=== PATIENT | female | born 1950 | race Caucasian/White ===

== ENCOUNTER → 2018-02-08 08:55 | Outpatient (CLI) | payer MEDICARE, OTHER, SELFPAY ==
--- NOTE | 2018-02-08 09:01 | BI_ITS ---
MAMMOGRAPHY - BILATERAL SCREENING REASON FOR EXAM: Female, 67 years old. Routine annual screening examination. PERTINENT HISTORY: Personal history of breast cancer. Prior right lumpectomy and radiation treatment. Mother with breast cancer. TECHNIQUE: Digital bilateral breast zayra (3D mammographic acquisition) in the CC and MLO projections. 2-D mediolateral oblique (MLO) and craniocaudad (CC) views of both breasts were obtained. CAD: Full Field Digital Mammography with Computer Added Detection was performed. COMPARISON: Comparison is made with prior study dated February 02, 2017 and January 14, 2016. FINDINGS: Breast Composition: The breasts are heterogeneously dense, which may obscure small masses. There are no dominant masses or suspicious calcifications. The patient is status post right lumpectomy with resultant architectural distortion and decreased size of the right breast as compared to the left side. This is unchanged. Tiny calcifications are seen at the operative site most likely postoperative in nature. No new mass lesion or clustered microcalcifications present. No other significant abnormalities are identified. There has been no significant change since the prior study. BI/SCREENING MAMM (CAD), BILAT IMPRESSION: Stable bilateral screening mammogram. Yearly follow-up mammogram recommended. (A) ASSESSMENT CATEGORY: BIRADS Category 2: Benign. A letter regarding these results will be sent to the patient by the facility within 30 days. Approximately 10% of breast cancers are not detected by mammography. A normal mammogram should not delay biopsy of a clinically suspicious abnormality. [id number] Electronically Signed: Karson Fernández MD at 10:32 EDT Tel [phone], Service support ,
[2018-02-08 10:08] LABS: Absolute Lymphocyte Count 1.67 X10^3/ul (0.83-4.51); Absolute Neutrophil Count 3.4 X10^3/uL (2.0-7.7); Basophil# 0.05 X10^3/uL; Basophil% 0.9 % (0-1); Eosinophil# 0.05 X10^3/uL; Eosinophils% 0.9 % (0-5); Hemoglobin 13.7 g/dl (12.0-15.0); Lymphocyte # 1.67 X10^3/ul (4.0); Lymphocyte % 29.7 % (19-41); Mean Corp Hgb Conc 31.9 g/gl (32-36); Mean Corpuscular Hgb 29.8 pg (27.0-32.0); Mean Corpuscular Volume 93.5 fL (81-99); Mean Platelet Vol. 10.2 fl (6.2-12.0); Monocyte# 0.43 X10^3/uL; Monocyte% 7.6 % (0-10); Neutrophil # 3.43 X10^3/uL (2.7-7.7); Neutrophil % 60.9 % (47-70); Platelet Count 265 K/mm3 (150-450); RBC Distribution Width SD 44.5 fl (35.1-43.9); White Blood Count 5.6 K/mm3 (4.4-11.0)
[2018-02-08 10:09] LABS: POSITIVE COUNT NO; POSITIVE DIFFERENTIAL NO; POSITIVE MORPHOLOGY NO
[2018-02-08 10:53] LABS: ALB/GLOB Ratio 0.9 RATIO (0.9-2.4); AST(SGOT) 21 U/L (15-37); Alanine Aminotransfer ALT/SGPT 28 U/L (13-56); Albumin, Serum 3.5 g/dL (3.2-5.0); Alkaline Phosphatase 98 U/L (45-117); Anion Gap 7 (5-15); BUN 8 mg/dL (7-18); BUN/Creat Ratio 11.3 RATIO (10-20); Calcium,Total 8.7 mg/dL (8.5-10.1); Chloride 109 mmol/L (98-107); Creatinine, Serum 0.71 mg/dL (0.55-1.02); EST Glomerular Filtration Rate 87 mL/min (>60); Est Glom Filt Rate - Afr Amer 105 mL/min (>60); Globulin 3.9 g/dL (2.2-4.2); Glucose 82 mg/dL (74-106); Potassium 3.8 mmol/L (3.5-5.1); Protein, Total 7.4 g/dL (6.4-8.2); Sodium Level 144 mmol/L (136-145)
== END ==
PROVIDERS: Family Provider Family Medicine; PCP Family Medicine; Visit Provider Nurse Practitioner Family
DX: Z12.31 Encounter for screening mammogram for malignant neoplasm of breast (principal); Z85.3 Personal history of malignant neoplasm of breast
CPT/HCPCS: 36415; 77063; 77067; 80053; 85025

== ENCOUNTER → 2018-03-29 08:44 | Outpatient (CLI) | payer MEDICARE, OTHER, SELFPAY ==
[2018-03-29 11:00] LABS: Cholesterol 151 mg/dL (200); High Density Lipoprotein 63 mg/dL; Triglycerides 90 mg/dL; Very Low Density Lipoprotein 18 mg/dL (5-40)
== END ==
PROVIDERS: Visit Provider Family Medicine
DX: E78.5 Hyperlipidemia, unspecified (principal)
CPT/HCPCS: 36415; 80061

== ENCOUNTER → 2018-09-15 08:10 | Outpatient (CLI) | payer MEDICARE, OTHER, SELFPAY ==
[2018-09-15 10:28] LABS: Anion Gap 8 (5-15); BUN 11 mg/dL (7-18); BUN/Creat Ratio 15.2 RATIO (10-20); Calcium,Total 8.7 mg/dL (8.5-10.1); Chloride 105 mmol/L (98-107); Creatinine, Serum 0.72 mg/dL (0.55-1.02); EST Glomerular Filtration Rate 85 mL/min (>60); Est Glom Filt Rate - Afr Amer 103 mL/min (>60); Glucose 86 mg/dL (74-106); Potassium 4.1 mmol/L (3.5-5.1); Sodium Level 144 mmol/L (136-145)
--- OUTSIDE RECORDS SUMMARY | 2018-12-17 08:37 | XMS RPT_ITS ---
:1950 Author Organization OHIP Support Name Relationship Address Phone [facility] Unavailable [address] + [place] [address] MAYELA OHARA Unavailable [address] + [place] [address] SERGE OHARA Unavailable [address] + [place] [address] [facility] Unavailable [address] + [place] [address] MAYELA OHARA Unavailable [address] + [place] [address] SERGE OHARA Unavailable [address] + [place] [address] [facility] Unavailable [address] + [place] [address] MAYELA OHARA Unavailable [address] [phone] [place] [address] SERGE OHARA Unavailable [address] [phone] [place] [address] [facility] Unavailable [address] + [place] [address] MAYELA OHARA Unavailable [address] [phone] [place] [address] SERGE OHARA Unavailable [address] [phone] [place] [address] [facility] Unavailable [address] + [place] [address] MAYELA OHARA Unavailable [address] [phone] [place] [address] SERGE OHARA Unavailable [address] [facility] [phone] [place] [address] Care Team Providers Name Role Phone Abiel Jadiel Attending Unavailable Beebe, Jadiel Primary Care Unavailable Mohamud, Anita Attending Unavailable Abiel, Jadiel Primary Care Unavailable Beebe, Jadiel Referring Unavailable Mohamud, Anita Attending Unavailable Mohamud, Anita Referring Unavailable Beebe, Jadiel Primary Care Unavailable Mohamud, Anita Attending Unavailable Beebe, Jadiel Referring Unavailable Beebe, Jadiel Primary Care Unavailable Mohamud, Anita Consulting Unavailable Abiel, Jadiel Attending Unavailable PROBLEMS PROBLEMS DATE TYPE CONDITION / CODE ATTENDING STATUS SOURCE 09/15/2018 Unknown I10 - Essential Jadiel Beebe Active [facility] (primary) [facility] hypertension / Hospital I10(ICD-10) Repository 02/15/2018 Unknown Z79.899 - Other Mohamud, Anita Active [place] [facility]current[facility] drug Hospital therapy / Repository Z79.899(ICD-10) 02/15/2018 Unknown Z12.31 - Encounter Mohamud, Anita Active [facility] for screening [facility] mammogram for Hospital malignant neoplasm Repository of breast / Z12.31(ICD-10) 02/15/2018 Unknown Z85.3 - Personal Mohamud, Anita Active [facility] history of Community malignant neoplasm Hospital of breast / Repository Z85.3(ICD-10) PROCEDURES PROCEDURES No Procedure Records FoundRESULTS RESULTS BASIC METABOLIC Collected: 09/15/2018 Status: F Source: [place] PROFILE (BMP) 8:15 AM [facility] HOSPITAL REPOSITORY TYPE CODE TESTS RESULT OUT OF RANGE REFERENCE UNITS LAB L501.0100 74-106 mg/dL Normal GLU 86 Result Comment: Please note revised GLUCOSE reference range effective 2017. LAB L501.1000 7-18 mg/dL Normal BUN 11 LAB L501.1100 0.55-1.02 mg/dL Normal CREAT,SERUM 0.72 Result Comment: The validity of the calculated GFR AND GFRAA in patients over 70 years has not been determined. Clinical correlation is essential. LAB L501.1110 >60 mL/min Normal EST GFR 85 Result Comment: Non- GFR Calc LAB L501.1115 >60 mL/min Normal EST GFR - AA 103 Result Comment: GFR Calc LAB L501.1300 10-20 RATIO Normal BUN/CRE 15.2 LAB L501.2200 8.5-10.1 mg/dL CA Normal 8.7 LAB L501.5300 136-145 mmol/L NA Normal 144 LAB L501.5600 3.5-5.1 mmol/L K Normal 4.1 LAB L501.5900 98-107 mmol/L CL Normal 105 LAB L501.6100 21.0-32.0 mmol/L Normal CO2 31.0 LAB L501.6200 5-15 Normal GAP 8 Performed By: #### L500.2500 #### [facility] [address] [place], [address] LIPID PROFILE Collected: 03/29/2018 Status: F Source: [place] 8:46 AM [facility] REPOSITORY TYPE CODE TESTS RESULT OUT OF RANGE REFERENCE UNITS LAB L501.4900 200 mg/dL Normal CHOL 151 Result Comment: <200 mg/dL Desirable 200-240 mg/dL Borderline >240 mg/dL High Risk LAB L501.5000 mg/dL Normal TRIG 90 Result Comment: The drugs N-Acetylcysteine and Metamizole may falsely depress this assay. Serum Triglycerides Reference Interval Normal <150 mg/dL Borderline high 150 - 199 mg/dL High 200 - 499 mg/dL Very High > or = 500 mg/dL LAB L501.6400 mg/dL Normal HDL 63 Result Comment: The drugs N-Acetylcysteine and Metamizole may falsely depress this assay. Reference Range HDL <40 mg/dL Low HDL Cholesterol HDL >or= 60 mg/dL High HDL Cholesterol LAB L501.6500 0-130 mg/dL Normal LDL 70 LAB L501.6600 5-40 mg/dL Normal VLDL 18 Performed By: #### L500.4100 #### [facility] [address] [place], [address] ONCOLOGY VISIT REPORT Observed: 02/15/2018 Status: F Source: [place] 12:46 PM [facility] REPOSITORY [facility] [address] [place] [address] OFFICE VISIT Date of Service: 02/15/18 1116 MR#: [id number] Acct: [id number] Name: BRENDA QUINTERO Rep #: [id number] : 1950 From: Anita RODRIGUEZ Age/Sex: 67/F Location: OMD Status: Signed Subjective - Date of Service Date of Service:: 02/15/18 - Chief Complaint Follow up- breast cancer - History of Present Illness Ms. 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 She is s/p lumpectomy and sentinel node biopsies. Completed course of adjuvant radiation therapy under the care of Dr. Florence. Oncotype DX score was 18. On Arimidex 11/01/2007 - 12/15/2012. - Interval History The patient is presenting to clinic for 1 year follow up. She is tearful today explaining since her last visit, her passed from cholangiocarcinoma. Reports she is in grieve counseling program provided by hospice. Otherwise, she denies any overt complaints r/t today's visit. States she performs monthly BSE and denies any palpable masses, skin abnormalities. Underwent screening mammogram last week and states was told it was good. - Past Medical/Social History Past Medical History Past Medical History: Heart disease,Hyperlipidemia,Hypertension, Osteoarthritis,Osteopenia Other Past Medical History: RADICULOPATHY R LEG Cancer: Breast cancer Past Surgical History Surgical: Breast,Carpal tunnel,Knee replacement Other Surgical History: D AND C, BL knee's Family History Paternal Past Medical History: Heart disease Maternal Past Medical History: Diabetes mellitus,Heart disease Maternal History of Cancer: Breast cancer Social History Smoking Status Former smoker Review of Systems Constitutional:: Denies: Fever, Sweats, Weight loss, Appetite change, Chills Cardiovascular:: Denies: Chest pain, Palpitations, Dyspnea on exertion, Orthopnea, PND, Shortness of breath Respiratory: Denies: Cough, Hemoptysis, Shortness of Breath, Wheezing Gastrointestinal:: Denies: Abdominal pain, Nausea, Vomiting, Diarrhea, Constipation, Hematochezia Genitourinary: Denies: Dysuria, Hematuria, 15, Flank pain Musculoskeletal:: Denies: Back pain, Myalgia, Arthralgia Skin: Denies: Rash, Skin Changes, Wounds Neurological:: Denies: Headache, Dizziness, Visual changes, Tinnitus, Hearing loss Psychiatric: Denies: Anxiety, Depression, Homicidal Ideations, Suicidal Ideations Vital Signs Height 5 ft 3 in Weight: 180 lb Weight in Pounds 180.0 lbs Pulse Ox 97 - Physical Exam General: Alert, Oriented x3, No apparent distress HEENT: Atraumatic, Normocephalic Oropharynx:: Negative for: Dry mucosa, Ulcerated lesions Neck:: Supple, Trachea midline. Negative for: JVD, bilateral Cardiac:: Regular rate, Regular rhythm, Normal S1, Normal S2. Negative for: Murmur Lungs: Clear to auscultation, Excusion symmetrical. Negative for: Rhonchi, Wheezes Abdomen:: Bowel sounds x 4, Soft, Non-tender, Non-distended. Negative for: Hepatosplenomegaly Extremities:: Negative for: Cyanosis, Edema Neurological: Neuro grossly intact Skin:: Negative for: Lesions, Rash, Petechiae, Ecchymosis Psychiatric:: Appropriate affect, Euthymic Lymphatics:: Negative for: Cervical lymphadenopathy, Supraclavicular lymphadenopathy, Axillary lymphadenopathy Breast:: - - Left breast without palpable masses, skin abnormalities such as dimpling, nipple retraction or discharge. Right breast shows well-healed lumpectomy scar, no palpable masses, dimpling, rashes. Skin thickened at the inferior portion of scar Diagnostic Data: Bilateral screening mammogram 02/08/18 - Stable . Yearly follow- up mammogram recommended. BI RADS Category 2: Assessment and Plan Ms. Brenda Quintero is a very pleasant 67-year-old woman with a past medical history for early stage moderately differentiated invasive ductal carcinoma of the right breast. She is status post lumpectomy and radiation therapy. She completed 5 years of AI therapy in 2012. 1. Stage I breast cancer- Mammogram from 02/02/17 reviewed, BIRADS category 2. Breast exam today is benign. She is not exhibiting any s/sx concerning for recurrence. CBC and CMP reviewed and WNL. Recommend that she continue calcium/vitamin D supplementation and monthly BSE, promptly reporting any changes. Otherwise, she can be followed back in clinic in 1 yr, with labs and screening mammogram 1 wk prior. Patient was in agreement with the aforementioned plan. Anita Mallory, MSN, [employer] E[employer]ECTS LINE UP PERSON-C, AOCNP Primary Care Provider: Jadiel Beebe Referring Provider: Jadiel Beebe - Problem List (1) History of breast cancer Status: Acute 02/15/18 1246 <Electronically signed by Anita RODRIGUEZ> Date Anita RODRIGUEZ Cosigner Signature: Date (if applicable) CC: SCREENING MAMM (CAD), Observed: 02/08/2018 Status: F Source: [place] BIL 9:01 AM [facility] REPOSITORY [facility] Imaging Services [address] [place] [address] SCREENING MAMM (CAD), BILAT MR#: [id number] Acct: [id number] Name: BRENDA QUINTERO Rep #: [id number] : 1950 F 67 From: Karson Fernández MD PCP: Jadiel Beebe MD Status: REG CLI Study: SCREENING MAMM (CAD), BILAT Date of Exam: 02/08/18 Exam# [id number] Ordering Dr: Anita Mallory MAMMOGRAPHY - BILATERAL SCREENING REASON FOR EXAM: Female, 67 years old. Routine annual screening examination. PERTINENT HISTORY: Personal history of breast cancer. Prior right lumpectomy and radiation treatment. Mother with breast cancer. TECHNIQUE: Digital bilateral breast zayra (3D mammographic acquisition) in the CC and MLO projections. 2-D mediolateral oblique (MLO) and craniocaudad (CC) views of both breasts were obtained. CAD: Full Field Digital Mammography with Computer Added Detection was performed. COMPARISON: Comparison is made with prior study dated February 02, 2017 and January 14, 2016. FINDINGS: Breast Composition: The breasts are heterogeneously dense, which may obscure small masses. There are no dominant masses or suspicious calcifications. The patient is status post right lumpectomy with resultant architectural distortion and decreased size of the right breast as compared to the left side. This is unchanged. Tiny calcifications are seen at the operative site most likely postoperative in nature. No new mass lesion or clustered microcalcifications present. No other significant abnormalities are identified. There has been no significant change since the prior study. BI/SCREENING MAMM (CAD), BILAT IMPRESSION: Stable bilateral screening mammogram. Yearly follow-up mammogram recommended. (A) ASSESSMENT CATEGORY: BIRADS Category 2: Benign. A letter regarding these results will be sent to the patient by the facility within 30 days. Approximately 10% of breast cancers are not detected by mammography. A normal mammogram should not delay biopsy of a clinically suspicious abnormality. [id number] Electronically Signed: Karson Fernández MD at 10:32 EDT Tel [phone], Service support , CC: Jadiel Beebe MD; Anita Mallory NP Rn Labor And Delivery: Signed CBC W/DIFF, AUTOMATED Collected: 02/08/2018 Status: F Source: [place] 8:51 AM [facility] REPOSITORY Order Comment: Reason for Laboratory Test OV TYPE CODE TESTS RESULT OUT OF RANGE REFERENCE UNITS LAB L100.1000 4.4-11.0 K/mm3 Normal WBC 5.6 LAB L100.1200 4.2-5.4 M/mm3 Normal RBC 4.60 LAB L100.1300 12.0-15.0 g/dl Normal HGB 13.7 LAB L100.1400 37-47 % Normal HCT 43.0 LAB L100.1500 81-99 fL Normal MCV 93.5 LAB L100.1600 27.0-32.0 pg Normal MCH 29.8 LAB L100.1700 32-36 g/gl Low MCHC 31.9 LAB L100.1810 11.6-14.6 % Normal RDW CV 13.0 LAB L100.1820 35.1-43.9 fl High RDW SD 44.5 LAB L100.1900 150-450 K/mm3 Normal PLT 265 LAB L100.2000 6.2-12.0 fl Normal MPV 10.2 LAB L100.2100 47-70 % Normal NEUT% 60.9 LAB L100.2200 19-41 % Normal LY% 29.7 LAB L100.2300 0-10 % Normal MONO% 7.6 LAB L100.2400 0-5 % Normal EO% 0.9 LAB L100.2500 0-1 % Normal BASO% 0.9 LAB L100.2550 0.0-0.9 % Normal IM GRAN % 0.000 Result Comment: IG% - Immature Granulocytes (promyelocytes, myelocytes and metamyelocytes) > 1% indicates that a LEFT SHIFT is Present. LAB L100.2620 2.0-7.7 X10 3/uL Normal Absolute Neut 3.4 LAB L100.2720 0.83-4.51 X10 3/ul Normal Absolute Lymph 1.67 Performed By: #### L100.0100 #### [facility] [address] [place], [address] COMPREHENSIVE METABOLIC Collected: 02/08/2018 Status: F Source: [facility] 8:51 AM [facility] REPOSITORY Order Comment: Reason for Laboratory Test OV TYPE CODE TESTS RESULT OUT OF RANGE REFERENCE UNITS LAB L501.0100 74-106 mg/dL Normal GLU 82 Result Comment: Please note revised GLUCOSE reference range effective 2017. LAB L501.1000 7-18 mg/dL Normal BUN 8 LAB L501.1100 0.55-1.02 mg/dL Normal CREAT,SERUM 0.71 Result Comment: The validity of the calculated GFR AND GFRAA in patients over 70 years has not been determined. Clinical correlation is essential. LAB L501.1110 >60 mL/min Normal EST GFR 87 Result Comment: Non- GFR Calc LAB L501.1115 >60 mL/min Normal EST GFR - AA 105 Result Comment: GFR Calc LAB L501.1300 10-20 RATIO Normal BUN/CRE 11.3 LAB L501.1500 6.4-8.2 g/dL T Normal PROT 7.4 LAB L501.1800 3.2-5.0 g/dL Normal ALB 3.5 LAB L501.1950 2.2-4.2 g/dL Normal GLOB 3.9 LAB L501.2000 0.9-2.4 RATIO Normal A/G 0.9 LAB L501.2200 8.5-10.1 mg/dL CA Normal 8.7 LAB L501.4100 15-37 U/L Normal AST 21 LAB L501.4305 45-117 U/L Normal ALK P 98 LAB L501.4405 13-56 U/L Normal ALT 28 LAB L501.4600 0.20-1.00 mg/dL T Normal BILI 0.90 LAB L501.5300 136-145 mmol/L NA Normal 144 LAB L501.5600 3.5-5.1 mmol/L K Normal 3.8 LAB L501.5900 98-107 mmol/L High CL 109 LAB L501.6100 21.0-32.0 mmol/L Normal CO2 28.0 LAB L501.6200 5-15 Normal GAP 7 Performed By: #### L500.4050 #### [facility] [address] [place], [address] ALLERGIES ALLERGIES DATE TYPE / NAME / CODE REACTION SEVERITY SOURCE CODE 02/09/2017 Drug oxycodone Nausea Unknown [place] Allergy/41 HCl/[id number](RXNORM [facility] 2560236[facility]) Repository 02/09/2017 Drug pseudoephedrine Nausea/Vom/Tram Unknown [place] Allergy/41 HCl/[id number](RXNORM [facility] 0657611[facility]) Repository 02/09/2017 Drug nitrofurantoin Rash Unknown [place] Allergy/41 macrocrystalline/F000 [facility] [id number]( 472803[facility] 02/09/2017 Drug fexofenadine Nausea/Vom/Tram Unknown [place] Allergy/41 HCl/[id number](RXNORM [facility] 1044874[facility]) Repository 02/09/2017 Drug Tetracyclines/[id number] Unknown Unknown [facility] Allergy/41 478(RXNORM) [facility] [id number]([facility]) Repository 02/09/2017 Drug nitrofurantoin/S77503 Rash Unknown [facility] Allergy/41 2852(RXNORM) [facility] 3604024([facility]) Repository ENCOUNTERS ENCOUNTERS ADMIT/DISCHARGE ACCOUNT ADMITTING ENCOUNTER LOCATION SOURCE NUMBER CLASS 09/15/2018 [id number] Ambulatory [place] 1 [facility] ing:MFPLAB Repository 03/29/2018 [id number] Ambulatory [place] 3 [facility] ing:MFPLAB Repository 02/15/2018 [id number] Ambulatory [place] 7 [facility] ing:OMD Repository 02/15/2018 [id number] Ambulatory BMSBuilding:B [place] 6 [facility] Repository 02/08/2018 [id number] Ambulatory [place] 8 [facility] ing:OPBI Repository PAYERS PAYERS ENCOUNTER GUARANTOR PAYER SUBSCRIBER SOURCE 09/15/2018 BRENDA RIZO6 Primary BRENDA GALLEGOS Insurance:MEDICARE LEAMANDOB: [place] PART A [facility] [id number] Hospital [address]Hjv: (330) Number: Repository [phone] () [id number] Date:2018-09-15 09/15/2018 Secondary Ivnh S [place] Insurance:AULTCAREPol [facility] Number: [id number] Hospital [id number] Repository Date:[id number] [address]NI: 09/15/2018 Tertiary NOT GIVENUNK [place] Insurance:SELF PAY [facility] Number: Effective Repository Date:2018-09-15 03/29/2018 BRENDA RIZO6 Primary BRENDA GALLEGOS Insurance:[facility]ARE [facility] C[facility]OB: [place] PART A [facility] [id number] Hospital [address]Eec: (330) Number: Repository [phone] () [id number] Date:2018-03-29 03/29/2018 Secondary Vinh S [place] Insurance:AULTCAREPol [facility] Hospital[facility]: [facility] icy Number: [id number] Hospital [id number] Repository Date:4697-77-73[address], [place] [address]XT: 03/29/2018 Tertiary NOT GIVENUNK [place] Insurance:SELF PAY [facility] Number: Effective Repository Date:2018-03-29 02/15/2018 Vinh S Primary BRENDA Garrido [id number] Insurance:MEDICARE LEAMANDOB: [place] PART A [facility] [id number] Number: Repository [address]Auq: [id number] [phone] Date:2014-08-28 2 () 02/15/2018 Secondary Vinh S [place] Insurance:AULTCAREPol LeamanDOB: [facility] icy Number: [id number] Hospital [id number] Repository Date:8107-51-88Cq [address], [place] [address]XN: 02/15/2018 Tertiary NOT GIVENUNK [place] Insurance:SELF PAY [facility] Number: Effective Repository Date:2016-12-16 02/15/2018 Vinh S Primary BRENDA Garrido [id number] Insurance:MEDICARE LEAMANDOB: [place] PART A [facility] [id number] Number: Repository [address]Fug: [id number] [phone] Date:2014-08-28 2 () 02/15/2018 Secondary Vinh Peters [place] Insurance:AULTCAREPol LeamanDOB: Community icy Number: [id number] Hospital [id number] Repository Date:1994-87-46Wi [address] [place] [address]LK: 02/15/2018 Tertiary NOT GIVENUNK [place] Insurance:SELF PAY [facility] Number: Effective Repository Date:2018-02-15 02/08/2018 FABI [id number] Primary BRENDA BRIGGSWOOD Insurance:MEDICARE LEAMANDOB: [place] PART A [facility] [id number] Hospital [address]Slk: 330) Number: Repository [phone] ( [id number] Date:2017-12-22 02/08/2018 Secondary BRENDA Garrido Insurance:AULTCAREPol [facility]: [facility] Number: [id number] Hospital [id number] Repository Date:4527-24-26[address] [address]XQ: 02/08/2018 Tertiary NOT RONI Garrido Insurance:SELF PAY [facility] Number: Effective Repository Date:2017-12-22
== END ==
PROVIDERS: Family Provider Family Medicine; PCP Family Medicine; Visit Provider Family Medicine
DX: I10 Essential (primary) hypertension (principal)
CPT/HCPCS: 36415; 80048

== ENCOUNTER 2018-12-31 17:38 | Inpatient (IN) | payer MEDICARE, OTHER, SELFPAY ==
[2018-12-31 17:39] VITALS: BP 176/73; PULSE 74; RESP 16; TEMP 36.8; O2SAT 98; BMI 35.6
--- NOTE | 2018-12-31 17:41 | CT_ITS ---
STUDY: CT ABDOMEN AND PELVIS WITH CONTRAST REASON FOR EXAM: Female, 68 years old. Left lower quadrant pain. History of breast cancer. RADIATION DOSAGE (If Supplied By Facility): CTDIvol = ( 17.29 ) mGy, DLP = ( 1137.10 ) mGycm TECHNIQUE: Transaxial images were obtained from the dome of the diaphragm to the symphysis pubis without oral contrast. 100ML IV Isovue 300 was administered. Sagittal and coronal images were reconstructed. Individualized dose optimization techniques were used for this CT. COMPARISON: CT abdomen pelvis with IV contrast January 01, 2015; MRI abdomen January 12, 2015 FINDINGS: There is stable soft tissue density surrounding a cluster of small surgical clips in the deep soft tissues of the right breast. Stable mild to moderate elevation of the right diaphragm. The visualized lung bases are clear. The visualized portions of the heart are within normal limits. The multiple rounded hypodense cysts in the liver are again noted. What had been one of the largest cysts, measuring 5.75 cm diameter in the left lobe, today is only 2.9 cm and shows slight overall increased density. Most of the remaining cysts are mostly unchanged. The patent portal vein diameter is 13 mm. Normal gallbladder and extrahepatic biliary system. The common bile duct diameter is 3.5 mm. Normal spleen. Normal size and contour of the pancreas. The central most pancreatic duct diameter is 4 mm Normal bilateral adrenal glands. There is stable bilateral pelvocaliectasis and/or clusters of bilateral parapelvic cysts. The right and left kidneys are normal in size. No ureteral dilatation to indicate distal urinary tract obstruction. There is a stable small hiatal hernia. Normal small intestine. Normal colon. The appendix is visualized and appears normal. There is stable moderate atherosclerotic calcification of the abdominal aorta and proximal iliac arteries, without a demonstrated aneurysm. Normal inferior vena cava. Normal retroperitoneum. The urinary bladder is distended to approximately 825 mL. There is atrophy of the uterus. Normal abdominal wall. There are diffuse degenerative changes of the visualized spine with progression of degenerative disc height narrowing and associated anterior vertebral endplate sclerosis and osteophyte formation at L3-4. CT/Abdomen/Pelvis W IV Cont ONLY IMPRESSION: 1. Urinary bladder is distended to approximately 825 mL at the time of scanning. No ureteral dilatation to indicate urinary tract obstruction. 2. There is stable bilateral pelvocaliectasis and/or clusters of bilateral parapelvic cysts. 3. Multiple hepatic cysts again noted. One of the largest, in the left lobe, is decreased in size today, while the others are grossly unchanged. 4. Stable vvdc-[id number]-nidloqea elevation of the right diaphragm, etiology uncertain. 5. Stable postsurgical changes in the deep soft tissues of the right breast. 6. Stable moderate aortoiliac atherosclerotic calcific plaquing. No demonstrated aneurysm. 7. Stable small hiatal hernia. The bowel is otherwise unremarkable without signs of obstruction. The appendix is normal. 8. Degenerative changes again seen in the spine, with progression since 2014 noted particularly at L3-4 Electronically Signed: Derik Mcguire MD at 19:31 EDT , Service support ,
[2018-12-31 17:42] VITALS: BP 176/73; PULSE 80; RESP 16; O2SAT 99
--- NOTE | 2018-12-31 17:58 | ED.DCSUM_ITS ---
- ER Visit Summary Date of Service: 12/31/18 Chief Complaint: Nausea, abdominal pain History of Present Illness: The patient is a 68 F presents to the emergency department with abdominal pain. The patient states that over the past 3 days, she had some cramping pain in her left lower quadrant. She is also had some loose watery diarrhea. She states that the symptoms acutely worsened today. She describes a sharp stabbing pain. She think she is had chills but is unsure if she had fever. She is been nauseated without vomiting. The patient has had history of prior laparoscopic surgery for endometriosis. She is otherwise been in her normal state of health. She denies any bloody diarrhea. She denies any recent antibiotics. Physical Examination: Vital signs reviewed General: Well-nourished, well-developed Head: Normocephalic, atraumatic Eyes: Pupils equal and reactive, extraocular muscles intact Neck, supple, no lymphadenopathy Heart: Regular rate and rhythm Respiratory: No distress, clear bilaterally Abdomen: Soft, mildly tender in the left lower quadrant without rebound or guarding, nondistended, no peritoneal signs Back: Nontender Extremities: Nontender, no edema, no cords Skin: Normal color no rash Neuro: Alert and oriented, no focal or lateralizing deficits Test Results: [] Emergency Department Course and Treatment: The patient symptoms do seem consistent with diverticulitis. She had increasing pain in her left lower quadrant with loose diarrhea. She is also had chills. IV was established. Patient was given fluids, antiemetics, and analgesics. Her pain is improved but it was still persistent. Screening labs are unremarkable. CT does not show any definitive evidence of diverticulitis, however on my review there does appear to be thickened wall of the colon, but no evidence of perforation or free air. Patient continues to have pain. At this time, I do feel that I will treat her clinically for diverticulitis with IV antibiotics. Given her persistent pain, I do feel that she would benefit from observation. The patient was discussed with the hospitalist. Treatment Plan: [] Disposition: Admission Impression: 1. Left lower quadrant abdominal pain This note was generated with [employer] dictation software. It may contain incorrect words, spelling, and punctuation that were not noted in review of the chart prior to signing ED Disposition - Plan for ED Patient: Referrals: Jadiel Beebe MD [Primary Care Provider] -
[2018-12-31 18:06] LABS: Absolute Lymphocyte Count 2.45 X10^3/ul (0.83-4.51); Absolute Neutrophil Count 4.3 X10^3/uL (2.0-7.7); Basophil# 0.05 X10^3/uL; Basophil% 0.7 % (0-1); Eosinophil# 0.04 X10^3/uL; Eosinophils% 0.5 % (0-5); Hematocrit 42.6 % (37-47); Hemoglobin 14.3 g/dl (12.0-15.0); Lymphocyte # 2.45 X10^3/ul (4.0); Lymphocyte % 32.6 % (19-41); Mean Corp Hgb Conc 33.6 g/gl (32-36); Mean Corpuscular Hgb 30.8 pg (27.0-32.0); Mean Corpuscular Volume 91.8 fL (81-99); Monocyte% 9.3 % (0-10); Neutrophil # 4.27 X10^3/uL (2.7-7.7); Neutrophil % 56.9 % (47-70); Platelet Count 255 K/mm3 (150-450); RBC Distribution Width CV 13.2 % (11.6-14.6); RBC Distribution Width SD 44.1 fl (35.1-43.9); Red Blood Count 4.64 M/mm3 (4.2-5.4); White Blood Count 7.5 K/mm3 (4.4-11.0)
[2018-12-31] MEDS: Morphine 4 MG/ML Syringe IV (18:06)
[2018-12-31] MEDS: Ondansetron 4 MG/2 ML Vial IV (18:06)
[2018-12-31] MEDS: 0.9% Normal Saline 1,000 ML 1000 ML IV (18:06)
[2018-12-31 18:20] LABS: AST(SGOT) 29 U/L (15-37); Alanine Aminotransfer ALT/SGPT 40 U/L (13-56); Albumin, Serum 3.9 g/dL (3.2-5.0); Alkaline Phosphatase 104 U/L (45-117); Anion Gap 7 (5-15); BUN 9 mg/dL (7-18); BUN/Creat Ratio 13.3 RATIO (10-20); Calcium,Total 8.7 mg/dL (8.5-10.1); Chloride 106 mmol/L (98-107); Creatinine, Serum 0.68 mg/dL (0.55-1.02); EST Glomerular Filtration Rate 92 mL/min (>60); Est Glom Filt Rate - Afr Amer 111 mL/min (>60); Estimated Creatinine Clearance 43.92 ml/min; Globulin 3.8 g/dL (2.2-4.2); Glucose 96 mg/dL (74-106); Potassium 3.6 mmol/L (3.5-5.1); Protein, Total 7.7 g/dL (6.4-8.2); Sodium Level 140 mmol/L (136-145)
[2018-12-31 18:24] LABS: POSITIVE COUNT NO; POSITIVE DIFFERENTIAL NO; POSITIVE MORPHOLOGY NO
[2018-12-31 18:49] LABS: Lactic Acid 0.5 mmol/L (0.4-2.0)
[2018-12-31 19:20] LABS: Bacteria 0 SEEN /hpf (None Seen); Mucous, Urine 0 SEEN /hpf (<or=2+); Red Blood Cells-Urine 0 SEEN /hpf (0-5); White Blood Cells 0 SEEN /hpf (0-5)
[2018-12-31 19:21] LABS: Color, Urine Yellow (Yellow); Glucose, Dipstick Normal (Normal); Ketone-Dipstick 5 mg/dl (Negative); Leukocyte Esterase-Dipstick Negative /ul (Negative); Nitrite-Dipstick Negative (Negative); Occult Blood-Urine Negative /ul (Negative); Protein-Dipstick Negative (Negative); Specific Gravity, Urine 1.005 (1.002-1.030); Urine Bilirubin Dipstick Negative (Negative); Urine Clarity Clear (Clear); Urine Urobilinogen Normal (Normal)
[2018-12-31 19:29] VITALS: BP 166/71; PULSE 83; RESP 18; TEMP 36.5; O2SAT 98
[2018-12-31 19:30] LABS: Squamous Epithelial Cells - UA 0-5 SEEN /hpf (5-10)
[2018-12-31] MEDS: Ciprofloxacin 400 MG/200 ML BAG 200 MG IV (20:09)
[2018-12-31] MEDS: HYDROmorphone 0.5 MG/0.5 ML SYRINGE IV (20:09)
--- NOTE | 2018-12-31 20:28 | PCM.HP.STD ---
Problem List (1) Acute diverticulitis Status: Suspected (2) Gastroenteritis Status: Suspected History of Present Illness Date of Admission: 12/31/18 Chief Complaint: left lower quadrant abdominal pain The patient is a 68 year old F with a significant history of breast cancer status post lumpectomy x2 and Arimidex therapy; hypertension; hyperlipidemia who presented to the emergency department with 1 week history of progressively worsening sharp left lower quadrant non radiating abdominal pain. Patient denies any aggravating factor to her pain. She reported that medication that she received at the emergency department helped improve her pain. She reports dry heaving without vomiting; cotton- like, dry mouth, and loose stools. She reports loose stools once every morning for the past week. Patient saw her PCP Dr. Alfred today who instructed patient to come to the emergency department. Patient received IV fluid bolus at emergency department. CT of abdomen showed distended bladder with approximately 825 mL's at the time of scanning. Emergency department doctor reported that patient had received fluid boluses and had not urinated at that time but after the procedure she was able to urinate. Also noted were multiple hepatic cysts with one decreased in size and others unchanged. Emergency department doctor think that he noticed some thickening of the colon and clinically diagnosed patient with diverticulitis and started patient on Cipro and Flagyl. Patient report that in the past she was diagnosed with ischemic colitis or diverticulitis. She reports that sometime in 2005 she had a colonoscopy and she is due for another colonoscopy. Previous colonoscopy was done by Dr. Allan, GI doctor. Past Medical History Medical History: Medical History (Last Reviewed 01/01/19 @ 04:46 by Edmond Garcia MD) Breast cancer C50.919 Carpal tunnel syndrome on both sides G56.03 Heart disease I51.9 Hyperlipidemia E78.5 Osteoarthritis M19.90 Osteopenia M85.80 Radiculopathy of leg M54.10 Hypertension I10 Allergies fexofenadine HCl [From Peggy-D 12 Hour] Adverse Reaction (Verified 12/31/18 17:42) Nausea/Vom/Diarrhea nitrofurantoin [From Macrobid] Adverse Reaction (Verified 12/31/18 17:42) Rash nitrofurantoin macrocrystalline [From Macrobid] Adverse Reaction (Verified 12/31/18 17:42) Rash oxycodone HCl [From OxyContin] Adverse Reaction (Verified 12/31/18 17:42) Nausea pseudoephedrine HCl [From Peggy-D 12 Hour] Adverse Reaction (Verified 12/31/18 17:42) Nausea/Vom/Diarrhea Tetracyclines Adverse Reaction (Verified 12/31/18 17:42) Unknown Home Medications: Ambulatory Orders Medication Instructions Recorded Amlodipine [Norvasc] 5 mg PO DAILY 09/30/13 Atorvastatin Calcium [Lipitor] 20 mg PO QHS 09/30/13 Lisinopril [Zestril] 20 mg PO DAILY 09/30/13 Surgical History: Surgical History (Last Reviewed 01/01/19 @ 04:46 by Edmond Garcia MD) H/O dilation and curettage Z98.890 History of lumpectomy of right breast Z98.890 History of partial knee replacement Z96.659 bilateral Lives: Alone Smoking Status: Former smoker - *Family History Maternal Family History: Family History (Last Reviewed 01/01/19 @ 04:46 by Edmond Garcia MD) Father Heart disease Mother Diabetes Breast cancer Heart disease Review of Systems Constitutional: Denies: Chills, Fever, Weight Change HEENT: Denies: Head Aches, Sinus Congestion, Sinus Drainage Cardiovascular: Denies: Chest Pain, Palpitations Respiratory: Denies: Cough, Shortness of breath at rest, Sputum production Gastrointestinal: Reports: Abdominal Pain, Diarrhea, - - Dry heaves. Denies: Nausea, Vomiting Genitourinary: Denies: Dysuria Musculoskeletal: Denies: Joint Pain, Joint Tenderness Skin: Denies: Rash, Wounds Neurological: Denies: Numbness, Tingling, Focal weakness Psychiatric: Denies: Anxiety, Depression, Homicidal Ideations, Suicidal Ideations Hematologic/ Lymphatic: Denies: Easy Bruising, Easy Bleeding VTE Information - Inpt Only VTE Present on Admission: No VTE Mechan Device Prophylaxis: None VTE Pharm Prophylaxis ordered?: Yes Patient Problems: Active and Suspected Problems (Last Reviewed 12/31/18 @ 22:13 by Edmond Garcia MD) Acute diverticulitis (Suspected) Gastroenteritis (Suspected) - Physical Exam General: Alert, Oriented x3, Cooperative HEENT: Atraumatic, PERRLA, EOMI, Normocephalic Neck: Supple, No JVD, Negative Carotid Bruits Lungs: Clear to auscultation, Normal air movement Cardiovascular: Regular rate, No murmurs Abdomen: Bowel Sounds Present, Soft, Tender - left lower quadrant Extremities: No edema, Capillary Refill Less than 3 Seconds Skin: No rashes, No breakdown Musculoskeletal: No Tenderness to Palpation of Joints or Extremities Neurological: Neuro grossly intact Psych/Mental Status: Normal Affect, Appropriate Vital Signs Temp Pulse Resp BP Pulse Ox 97.7 F L 83 18 166/71 H 98 12/31/18 19:29 12/31/18 19:29 12/31/18 19:29 12/31/18 19:29 12/31/18 19:29 Oxygen Delivery Method Room Air Weight: 91.3 kg Body Mass Index (BMI) 35.6 Laboratory Tests Past 24 Hrs 12/31/18 12/31/18 12/31/18 17:54 17:54 18:08 WBC 7.5 RBC 4.64 Hgb 14.3 Hct 42.6 MCV 91.8 MCH 30.8 MCHC 33.6 RDW 13.2 RDW Differential 44.1 H Plt Count 255 MPV 10.0 Immature Gran % (Auto) 0.000 Neut % (Auto) 56.9 Lymph % (Auto) 32.6 [place] % (Auto) 9.3 Eos % (Auto) 0.5 Baso % (Auto) 0.7 Absolute Neuts (auto) 4.3 Absolute Lymphs (auto) 2.45 Total Counted Not Reportable Sodium 140 Potassium 3.6 Chloride 106 Carbon Dioxide 27.0 Anion Gap 7 BUN 9 Creatinine 0.68 Estim Creat Clear Calc 43.92 Est GFR (MDRD) Af Amer 111 Est GFR (MDRD) Non-Af 92 BUN/Creatinine Ratio 13.3 Glucose 96 Lactic Acid 0.5 Calcium 8.7 Total Bilirubin 0.50 AST 29 ALT 40 Alkaline Phosphatase 104 Total Protein 7.7 Albumin 3.9 Globulin 3.8 Albumin/Globulin Ratio 1.0 Urine Color Urine Clarity Urine pH Ur Specific [place] Urine Protein Urine Glucose (UA) Urine Ketones Urine Occult Blood Urine Nitrite Urine Bilirubin Urine Urobilinogen Ur Leukocyte Esterase Urine RBC Urine WBC Ur Squamous Epith Cells Urine Bacteria Urine Mucus 12/31/18 19:13 WBC RBC Hgb Hct MCV MCH MCHC RDW RDW Differential Plt Count MPV Immature Gran % (Auto) Neut % (Auto) Lymph % (Auto) [place] % (Auto) Eos % (Auto) Baso % (Auto) Absolute Neuts (auto) Absolute Lymphs (auto) Total Counted Sodium Potassium Chloride Carbon Dioxide Anion Gap BUN Creatinine Estim Creat Clear Calc Est GFR (MDRD) Af Amer Est GFR (MDRD) Non-Af BUN/Creatinine Ratio Glucose Lactic Acid Calcium Total Bilirubin AST ALT Alkaline Phosphatase Total Protein Albumin Globulin Albumin/Globulin Ratio Urine Color Yellow Urine Clarity Clear Urine pH 7.0 Ur Specific [place] 1.005 Urine Protein Negative Urine Glucose (UA) Normal Urine Ketones 5 H Urine Occult Blood Negative Urine Nitrite Negative Urine Bilirubin Negative Urine Urobilinogen Normal Ur Leukocyte Esterase Negative Urine RBC 0 SEEN Urine WBC 0 SEEN Ur Squamous Epith Cells 0-5 SEEN Urine Bacteria 0 SEEN Urine Mucus 0 SEEN Assessment/Plan All Active Problems (Last Reviewed 12/31/18 @ 22:13 by Edmond Garcia MD) History of breast cancer (Acute) The patient is a 68 year old F with a significant history of breast cancer status post lumpectomy x2 and Arimidex therapy; hypertension; hyperlipidemia who presented to the emergency department with 1 week history of progressively worsening sharp left lower quadrant non radiating abdominal pain consistent with likely acute diverticulitis. Acute diverticulitis Differential diagnosis include acute gastroenteritis. We will continue ciprofloxacin and Flagyl that was started in the emergency department. Patient is allergic to oxycodone. PRN morphine IV for severe pain and Toradol p.o. for moderate pain. As needed Zofran ordered. Maintenance normal saline infusion continued at 75 mL's per hour. Discussed with patient that she may need outpatient colonoscopy after discharge. The patient was admitted for observation. Hypertension On presentation her blood pressure was not within goal but slowly improved. Home lisinopril and amlodipine continued Trend blood pressure and adjust blood pressure medication. Hyperlipidemia Lipitor continued DVT prophylaxis Lovenox subcutaneous ordered Code Visit Inpatient E&M: 71890 Init Hosp L3
[2018-12-31 20:37] VITALS: BP 153/70; RESP 18; O2SAT 95
[2018-12-31 21:50] VITALS: BMI 34.5
[2018-12-31 22:07] VITALS: BP 135/69; PULSE 76; RESP 15; TEMP 36.6; O2SAT 94
[2018-12-31] MEDS: Atorvastatin Calcium 20 MG Tablet PO (22:43)
[2018-12-31] MEDS: 0.9% Normal Saline 1,000 ML 75 ML IV (22:43)
[2019-01-01 02:18] VITALS: BP 118/52; PULSE 56; RESP 16; TEMP 36.5; O2SAT 99
[2019-01-01] MEDS: Morphine 2 MG/ML Syringe IV ×2 (03:07→08:24)
[2019-01-01] MEDS: Ciprofloxacin 400 MG/200 ML BAG 200 MG IV (08:22)
[2019-01-01] MEDS: Enoxaparin 40 MG/0.4 ML Syringe SC (08:24)
[2019-01-01] MEDS: amLODIPine 5 MG Tablet PO (08:24)
[2019-01-01] MEDS: Lisinopril 20 MG Tablet PO (08:24)
[2019-01-01 08:27] VITALS: BP 158/91; PULSE 70; RESP 18; TEMP 37.1; O2SAT 94
--- NOTE | 2019-01-01 09:19 | PCM.PN.HOSP ---
Patient Problems: Active and Suspected Problems (Last Reviewed 01/01/19 @ 04:46 by Edmond Garcia MD) Acute diverticulitis (Suspected) Gastroenteritis (Suspected) Subjective: Still complaining of nausea as well as diarrhea, left-sided abdominal pain that does not resolve with either bowel movement or urination. Vitals/I&O's: Vital Signs Temp Pulse Resp BP Pulse Ox 98.7 F 70 18 158/91 H 94 01/01/19 08:27 01/01/19 08:27 01/01/19 08:27 01/01/19 08:27 01/01/19 08:27 Oxygen Delivery Method Room Air Weight: 194 lb 14.218 oz Body Mass Index (BMI) 34.5 Intake and Output for Last 24 Hours 12/30/18 12/31/18 01/01/19 23:59 23:59 23:59 Intake Total 1255 / 1255 Output Total 800 / 800 Balance 455 / 455 General: Alert, Oriented x3, Cooperative, No apparent distress HEENT: Atraumatic, PERRLA, EOMI, Normocephalic Oral: Moist Mucosa Neck: Supple, No JVD, Trachea Midline Lungs: Clear to auscultation, Normal air movement, No rhonchi, No wheeze, No rales Cardiovascular: Regular rate, Regular Rhythm, Normal S1, Normal S2, No murmurs Abdomen: Soft, Non Tender, Non-Distended, No Hepato-splenomegaly Extremities: No edema, Capillary Refill Less than 3 Seconds Skin: No rashes, No breakdown Neurological: Neuro grossly intact, Sensory exam intact to light touch and pain Psych/Mental Status: Normal Affect, Appropriate Laboratory Results 12/31/18 17:54: WBC 7.5, RBC 4.64, Hgb 14.3, Hct 42.6, MCV 91.8, MCH 30.8, MCHC 33.6, RDW 13.2, RDW Differential 44.1 H, Plt Count 255, MPV 10.0, Immature Gran % (Auto) 0.000, Neut % (Auto) 56.9, Lymph % (Auto) 32.6, [place] % (Auto) 9.3, Eos % (Auto) 0.5, Baso % (Auto) 0.7, Absolute Neuts (auto) 4.3, Absolute Lymphs (auto) 2.45, Total Counted Not Reportable 12/31/18 17:54: Sodium 140, Potassium 3.6, Chloride 106, Carbon Dioxide 27.0, Anion Gap 7, BUN 9, Creatinine 0.68, Estim Creat Clear Calc 43.92, Est GFR (MDRD) Af Amer 111, Est GFR (MDRD) Non-Af 92, BUN/Creatinine Ratio 13.3, Glucose 96, Calcium 8.7, Total Bilirubin 0.50, AST 29, ALT 40, Alkaline Phosphatase 104, Total Protein 7.7, Albumin 3.9, Globulin 3.8, Albumin/Globulin Ratio 1.0 12/31/18 18:08: Lactic Acid 0.5 12/31/18 19:13: Urine Color Yellow, Urine Clarity Clear, Urine pH 7.0, Ur Specific [place] 1.005, Urine Protein Negative, Urine Glucose (UA) Normal, Urine Ketones 5 H, Urine Occult Blood Negative, Urine Nitrite Negative, Urine Bilirubin Negative, Urine Urobilinogen Normal, Ur Leukocyte Esterase Negative, Urine RBC 0 SEEN, Urine WBC 0 SEEN, Ur Squamous Epith Cells 0-5 SEEN, Urine Bacteria 0 SEEN, Urine Mucus 0 SEEN Current Medications Acetaminophen (Tylenol) 650 mg PO Q6H PRN PRN PRN Reason: Mild Pain (1-3)/Temp > 100.7 F Amlodipine Besylate (Norvasc) 5 mg PO DAILY [facility] Last Admin: 01/01/19 08:24 Dose: 5 mg Atorvastatin Calcium (Lipitor) 20 mg PO QHS [facility] Last Admin: 12/31/18 22:43 Dose: 20 mg Enoxaparin Sodium (Lovenox) 40 mg SC DAILY@1000 [facility] Last Admin: 01/01/19 08:24 Dose: 40 mg Sodium Chloride () 1,000 mls @ 75 mls/hr IV .[id number] [facility] Stop: 01/01/19 11:09 Last Admin: 12/31/18 22:43 Dose: 75 mls/hr Ciprofloxacin (Cipro) 400 mg in 200 mls @ 200 mls/hr IV Q12 [facility] Last Admin: 01/01/19 08:22 Dose: 200 mls/hr Metronidazole (Flagyl) 500 mg in 100 mls @ 100 mls/hr IV Q8 [facility] Last Admin: 01/01/19 06:09 Dose: 100 mls/hr Ketorolac Tromethamine (Toradol) 10 mg PO Q6H PRN PRN PRN Reason: MODERATE PAIN (4-5/10) Stop: 01/05/19 21:50 Lisinopril (Zestril) 20 mg PO DAILY [facility] Last Admin: 01/01/19 08:24 Dose: 20 mg Morphine Sulfate () 2 mg IV Q3H PRN PRN PRN Reason: Severe pain (7-10/10) Last Admin: 01/01/19 08:24 Dose: 2 mg Ondansetron HCl (Zofran) 4 mg IV Q8H PRN PRN PRN Reason: NAUSEA/VOMITING Sodium Chloride () 5 - 15 ml IV UD PRN PRN Reason: SALINE FLUSH Medical Necessity - Tobacco Use Smoking Status: Former smoker Assessment/Plan All Active Problems (Last Reviewed 01/01/19 @ 04:46 by Edmond Garcia MD) History of breast cancer (Acute) 1. Viral gastroenteritis versus diverticulitis -On my own review of the CT scan I agree with radiology that there is no sign of diverticulitis, or even ischemic colitis -She remains afebrile and without a leukocytosis and her diarrhea has been going on for over a week -Will DC Cipro/Flagyl, and will obtain stool cultures -She denies any travel or recent antibiotic use -She lives alone and has no sick contacts -We will continue with IV fluids and clear liquids 2. HTN/HLD -Blood pressure is normal -Continue with home medications DVT: Lovenox Code Visit OBSV E&M: 80561 Initial observation care L2
--- NOTE | 2019-01-01 09:22 | PN_ITS ---
Patient Problems: Active and Suspected Problems (Last Reviewed 01/01/19 @ 04:46 by Edmond Garcia MD) Acute diverticulitis (Suspected) Gastroenteritis (Suspected) Subjective: Still complaining of nausea as well as diarrhea, left-sided abdominal pain that does not resolve with either bowel movement or urination. Vitals/I&O's: Vital Signs Temp Pulse Resp BP Pulse Ox 98.7 F 70 18 158/91 H 94 01/01/19 08:27 01/01/19 08:27 01/01/19 08:27 01/01/19 08:27 01/01/19 08:27 Oxygen Delivery Method Room Air Weight: 194 lb 14.218 oz Body Mass Index (BMI) 34.5 Intake and Output for Last 24 Hours 12/30/18 12/31/18 01/01/19 23:59 23:59 23:59 Intake Total 1255 / 1255 Output Total 800 / 800 Balance 455 / 455 General: Alert, Oriented x3, Cooperative, No apparent distress HEENT: Atraumatic, PERRLA, EOMI, Normocephalic Oral: Moist Mucosa Neck: Supple, No JVD, Trachea Midline Lungs: Clear to auscultation, Normal air movement, No rhonchi, No wheeze, No rales Cardiovascular: Regular rate, Regular Rhythm, Normal S1, Normal S2, No murmurs Abdomen: Soft, Non Tender, Non-Distended, No Hepato-splenomegaly Extremities: No edema, Capillary Refill Less than 3 Seconds Skin: No rashes, No breakdown Neurological: Neuro grossly intact, Sensory exam intact to light touch and pain Psych/Mental Status: Normal Affect, Appropriate Laboratory Results 12/31/18 17:54: WBC 7.5, RBC 4.64, Hgb 14.3, Hct 42.6, MCV 91.8, MCH 30.8, MCHC 33.6, RDW 13.2, RDW Differential 44.1 H, Plt Count 255, MPV 10.0, Immature Gran % (Auto) 0.000, Neut % (Auto) 56.9, Lymph % (Auto) 32.6, [place] % (Auto) 9.3, Eos % (Auto) 0.5, Baso % (Auto) 0.7, Absolute Neuts (auto) 4.3, Absolute Lymphs (auto) 2.45, Total Counted Not Reportable 12/31/18 17:54: Sodium 140, Potassium 3.6, Chloride 106, Carbon Dioxide 27.0, Anion Gap 7, BUN 9, Creatinine 0.68, Estim Creat Clear Calc 43.92, Est GFR (MDRD) Af Amer 111, Est GFR (MDRD) Non-Af 92, BUN/Creatinine Ratio 13.3, Glucose 96, Calcium 8.7, Total Bilirubin 0.50, AST 29, ALT 40, Alkaline Phosphatase 104, Total Protein 7.7, Albumin 3.9, Globulin 3.8, Albumin/Globulin Ratio 1.0 12/31/18 18:08: Lactic Acid 0.5 12/31/18 19:13: Urine Color Yellow, Urine Clarity Clear, Urine pH 7.0, Ur Specific [place] 1.005, Urine Protein Negative, Urine Glucose (UA) Normal, Urine Ketones 5 H, Urine Occult Blood Negative, Urine Nitrite Negative, Urine Bilirubin Negative, Urine Urobilinogen Normal, Ur Leukocyte Esterase Negative, Urine RBC 0 SEEN, Urine WBC 0 SEEN, Ur Squamous Epith Cells 0-5 SEEN, Urine Bacteria 0 SEEN, Urine Mucus 0 SEEN Current Medications Acetaminophen (Tylenol) 650 mg PO Q6H PRN PRN PRN Reason: Mild Pain (1-3)/Temp > 100.7 F Amlodipine Besylate (Norvasc) 5 mg PO DAILY [facility] Last Admin: 01/01/19 08:24 Dose: 5 mg Atorvastatin Calcium (Lipitor) 20 mg PO QHS [facility] Last Admin: 12/31/18 22:43 Dose: 20 mg Enoxaparin Sodium (Lovenox) 40 mg SC DAILY@1000 [facility] Last Admin: 01/01/19 08:24 Dose: 40 mg Sodium Chloride () 1,000 mls @ 75 mls/hr IV .[id number] [facility] Stop: 01/01/19 11:09 Last Admin: 12/31/18 22:43 Dose: 75 mls/hr Ciprofloxacin (Cipro) 400 mg in 200 mls @ 200 mls/hr IV Q12 [facility] Last Admin: 01/01/19 08:22 Dose: 200 mls/hr Metronidazole (Flagyl) 500 mg in 100 mls @ 100 mls/hr IV Q8 [facility] Last Admin: 01/01/19 06:09 Dose: 100 mls/hr Ketorolac Tromethamine (Toradol) 10 mg PO Q6H PRN PRN PRN Reason: MODERATE PAIN (4-5/10) Stop: 01/05/19 21:50 Lisinopril (Zestril) 20 mg PO DAILY [facility] Last Admin: 01/01/19 08:24 Dose: 20 mg Morphine Sulfate () 2 mg IV Q3H PRN PRN PRN Reason: Severe pain (7-10/10) Last Admin: 01/01/19 08:24 Dose: 2 mg Ondansetron HCl (Zofran) 4 mg IV Q8H PRN PRN PRN Reason: NAUSEA/VOMITING Sodium Chloride () 5 - 15 ml IV UD PRN PRN Reason: SALINE FLUSH Medical Necessity - Tobacco Use Smoking Status: Former smoker Assessment/Plan All Active Problems (Last Reviewed 01/01/19 @ 04:46 by Edmond Garcia MD) History of breast cancer (Acute) 1. Viral gastroenteritis versus diverticulitis -On my own review of the CT scan I agree with radiology that there is no sign of diverticulitis, or even ischemic colitis -She remains afebrile and without a leukocytosis and her diarrhea has been going on for over a week -Will DC Cipro/Flagyl, and will obtain stool cultures -She denies any travel or recent antibiotic use -She lives alone and has no sick contacts -We will continue with IV fluids and clear liquids 2. HTN/HLD -Blood pressure is normal -Continue with home medications DVT: Lovenox Code Visit OBSV E&M: 80637 Initial observation care L2
--- NOTE | 2019-01-01 12:35 | CASEMGMT ---
RN CM Assessment Presentation: Diverticulitis, abd pain Intro role of CM and purpose of RN CM assessment to patient in room. Pt is awake, alert and able to participate in RN CM assessment. Demographics, PCP and Pharmacy verified. PCP: Dr. Beebe Preferred Pharmacy: [facility] Insurance: [facility] Prescription Benefit: Yes LNOK: Jw Maurice, brother/allison Living Arrangements: Lives independently. Denies needing any assist with care needs. Transportation: Drives DME: none HHC: none Patient DC goals: Home DC PLAN: Home Bill RIZO RN ACM
[2019-01-01] MEDS: 0.9% NaCl Peripheral Flush Adult/Peds IV ×2 (12:47→18:47)
[2019-01-01] MEDS: Ondansetron 4 MG/2 ML Vial IV (12:48)
--- NOTE | 2019-01-01 13:59 | CASEMGMT ---
LW/POA not on chart. SW let pt know, and asked her to bring in forms in the future if able. ANSELMO Avalos, WASTE TREATMENT OPERATOR
[2019-01-01 14:31] VITALS: BP 142/58; PULSE 55; RESP 18; TEMP 36.7; O2SAT 98
[2019-01-01] MEDS: Atorvastatin Calcium 20 MG Tablet PO (21:52)
[2019-01-01 21:53] VITALS: BP 123/55; PULSE 53; RESP 16; TEMP 37.1; O2SAT 99
[2019-01-02 05:52] LABS: Absolute Lymphocyte Count 2.04 X10^3/ul (0.83-4.51); Absolute Neutrophil Count 2.5 X10^3/uL (2.0-7.7); Basophil# 0.06 X10^3/uL; Basophil% 1.1 % (0-1); Eosinophil# 0.11 X10^3/uL; Eosinophils% 2.1 % (0-5); Hematocrit 39.8 % (37-47); Hemoglobin 12.8 g/dl (12.0-15.0); Lymphocyte # 2.04 X10^3/ul (4.0); Lymphocyte % 38.5 % (19-41); Mean Corp Hgb Conc 32.2 g/gl (32-36); Mean Corpuscular Volume 93.4 fL (81-99); Mean Platelet Vol. 10.2 fl (6.2-12.0); Monocyte# 0.54 X10^3/uL; Monocyte% 10.2 % (0-10); Neutrophil # 2.54 X10^3/uL (2.7-7.7); Neutrophil % 47.9 % (47-70); Platelet Count 226 K/mm3 (150-450); RBC Distribution Width CV 13.3 % (11.6-14.6); Red Blood Count 4.26 M/mm3 (4.2-5.4); White Blood Count 5.3 K/mm3 (4.4-11.0)
[2019-01-02 05:53] VITALS: BP 132/55; PULSE 53; RESP 14; TEMP 36.6; O2SAT 96
[2019-01-02 06:05] LABS: Anion Gap 5 (5-15); BUN 5 mg/dL (7-18); Calcium,Total 8.1 mg/dL (8.5-10.1); Chloride 109 mmol/L (98-107); Creatinine, Serum 0.62 mg/dL (0.55-1.02); EST Glomerular Filtration Rate 101 mL/min (>60); Est Glom Filt Rate - Afr Amer 122 mL/min (>60); Estimated Creatinine Clearance 43.92 ml/min; Glucose 86 mg/dL (74-106); Potassium 3.5 mmol/L (3.5-5.1); Sodium Level 143 mmol/L (136-145)
[2019-01-02 06:25] LABS: POSITIVE COUNT NO; POSITIVE DIFFERENTIAL NO; POSITIVE MORPHOLOGY NO
[2019-01-02 08:03] VITALS: BP 129/58; PULSE 63; RESP 16; TEMP 36.7; O2SAT 98
[2019-01-02] MEDS: amLODIPine 5 MG Tablet PO (08:06)
[2019-01-02] MEDS: Polyethylene Glycol 3350 17 GM PACKET PO ×2 (08:06→23:50)
[2019-01-02] MEDS: Lisinopril 20 MG Tablet PO (08:07)
[2019-01-02] MEDS: Enoxaparin 40 MG/0.4 ML Syringe SC (08:07)
--- NOTE | 2019-01-02 08:27 | PCM.PN.HOSP ---
Patient Problems: Active and Suspected Problems (Last Reviewed 01/01/19 @ 04:46 by Edmond Garcia MD) Acute diverticulitis (Suspected) Gastroenteritis (Suspected) Subjective: She continues to have intermittent colicky-like pain on the left side. No fevers and no leukocytosis. She has not had a bowel movement in several days Vitals/I&O's: Vital Signs Temp Pulse Resp BP Pulse Ox 98.1 F 63 16 129/58 H 98 01/02/19 08:03 01/02/19 08:03 01/02/19 08:03 01/02/19 08:03 01/02/19 08:03 Oxygen Delivery Method Room Air Weight: 194 lb 14.218 oz Body Mass Index (BMI) 34.5 Intake and Output for Last 24 Hours 12/31/18 01/01/19 01/02/19 23:59 23:59 23:59 Intake Total 2095 / 2095 600 / 600 Output Total 1000 / 1000 Balance 1095 / 1095 600 / 600 General: Alert, Oriented x3, Cooperative, No apparent distress HEENT: Atraumatic, PERRLA, EOMI, Normocephalic Oral: Moist Mucosa Neck: Supple, No JVD, Trachea Midline Lungs: Clear to auscultation, Normal air movement, No rhonchi, No wheeze, No rales Cardiovascular: Regular rate, Regular Rhythm, Normal S1, Normal S2, No murmurs Abdomen: Soft, slight tenderness to palpation on the left, Non-Distended, No Hepato-splenomegaly Extremities: No edema, Capillary Refill Less than 3 Seconds Skin: No rashes, No breakdown Neurological: Neuro grossly intact, Sensory exam intact to light touch and pain Psych/Mental Status: Normal Affect, Appropriate Laboratory Results 01/02/19 05:00: WBC 5.3, RBC 4.26, Hgb 12.8, Hct 39.8, MCV 93.4, MCH 30.0, MCHC 32.2, RDW 13.3, RDW Differential 44.0 H, Plt Count 226, MPV 10.2, Immature Gran % (Auto) 0.200, Neut % (Auto) 47.9, Lymph % (Auto) 38.5, Shackelford % (Auto) 10.2 H, Eos % (Auto) 2.1, Baso % (Auto) 1.1 H, Absolute Neuts (auto) 2.5, Absolute Lymphs (auto) 2.04, Total Counted Not Reportable 01/02/19 05:00: Sodium 143, Potassium 3.5, Chloride 109 H, Carbon Dioxide 29.0, Anion Gap 5, BUN 5 L, Creatinine 0.62, Estim Creat Clear Calc 43.92, Est GFR (MDRD) Af Amer 122, Est GFR (MDRD) Non-Af 101, BUN/Creatinine Ratio 8.0 L, Glucose 86, Calcium 8.1 L Current Medications Acetaminophen (Tylenol) 650 mg PO Q6H PRN PRN PRN Reason: Mild Pain (1-3)/Temp > 100.7 F Amlodipine Besylate (Norvasc) 5 mg PO DAILY [facility] Last Admin: 01/02/19 08:06 Dose: 5 mg Atorvastatin Calcium (Lipitor) 20 mg PO QHS [facility] Last Admin: 01/01/19 21:52 Dose: 20 mg Enoxaparin Sodium (Lovenox) 40 mg SC DAILY@1000 [facility] Last Admin: 01/02/19 08:07 Dose: 40 mg Ketorolac Tromethamine (Toradol) 10 mg PO Q6H PRN PRN PRN Reason: MODERATE PAIN (4-5/10) Stop: 01/05/19 21:50 Lisinopril (Zestril) 20 mg PO DAILY [facility] Last Admin: 01/02/19 08:07 Dose: 20 mg Morphine Sulfate () 2 mg IV Q3H PRN PRN PRN Reason: Severe pain (7-10/10) Last Admin: 01/01/19 08:24 Dose: 2 mg Ondansetron HCl (Zofran) 4 mg IV Q8H PRN PRN PRN Reason: NAUSEA/VOMITING Last Admin: 01/01/19 12:48 Dose: 4 mg Polyethylene Glycol (Miralax) 17 gm PO BID [facility] Last Admin: 01/02/19 08:06 Dose: 17 gm Sodium Chloride () 5 - 15 ml IV UD PRN PRN Reason: SALINE FLUSH Last Admin: 01/01/19 18:47 Dose: 10 ml Medical Necessity - Tobacco Use Smoking Status: Former smoker Assessment/Plan All Active Problems (Last Reviewed 01/01/19 @ 04:46 by Edmond Garcia MD) History of breast cancer (Acute) 1. Viral gastroenteritis versus diverticulitis versus constipation -On my own review of the CT scan I agree with radiology that there is no sign of diverticulitis, or even ischemic colitis, however there is formed stool in the right colon and in the transverse colon as well as evidence of formed stool in segments of the small bowel therefore will treat as constipation and start MiraLAX if this is unsuccessful by this afternoon can consider doing GoLYTELY -She remains afebrile and without a leukocytosis and her diarrhea has been going on for over a week -Will DC Cipro/Flagyl, and will obtain stool cultures -She denies any travel or recent antibiotic use -She lives alone and has no sick contacts -We will continue with IV fluids and clear liquids 2. HTN/HLD -Blood pressure is normal -Continue with home medications DVT: Lovenox Code Visit Inpatient E&M: 40158 Subs Hosp L2
[2019-01-02] MEDS: Acetaminophen 325 MG Tablet 650 MG PO (12:32)
[2019-01-02 13:44] VITALS: BP 150/60; PULSE 68; RESP 18; TEMP 36.6; O2SAT 97
[2019-01-02] MEDS: Electrolyte Solution/Peg's 4000 ML 2000 ML PO (14:58)
[2019-01-02 20:15] VITALS: BP 115/59; PULSE 62; RESP 16; TEMP 36.8; O2SAT 95
[2019-01-02] MEDS: Atorvastatin Calcium 20 MG Tablet PO (23:50)
[2019-01-03 02:42] VITALS: BP 115/50; PULSE 62; RESP 12; TEMP 36.8; O2SAT 92
[2019-01-03 09:00] VITALS: BP 130/100; PULSE 77; RESP 14; TEMP 36.9; O2SAT 98
[2019-01-03] MEDS: Lisinopril 20 MG Tablet PO (09:13)
[2019-01-03] MEDS: amLODIPine 5 MG Tablet PO (09:14)
[2019-01-03] MEDS: Enoxaparin 40 MG/0.4 ML Syringe SC (09:14)
[2019-01-03] MEDS: Ketorolac 10 MG Tablet PO (11:07)
--- NOTE | 2019-01-03 12:23 | PCM.PROGNOTE ---
Patient Problems: Active and Suspected Problems (Last Reviewed 01/01/19 @ 04:46 by Edmond Garcia MD) Acute diverticulitis (Suspected) Gastroenteritis (Suspected) LLQ abdominal pain (Acute) Subjective: The patient is a 68-year-old female with a past medical history of breast cancer, bilateral carpal tunnel syndrome, coronary artery disease, hyperlipidemia, osteoarthritis, osteopenia, radiculopathy lower extremity and hypertension who presented to the emergency department at [facility] on 12/31/2018 complaining of left lower quadrant abdominal pain and loose stools. The CT scan of the abdomen and pelvis showed no acute findings but did show persistent multiple hepatic cysts, elevation of the right hemidiaphragm, moderate aortoiliac atherosclerotic plaquing and a small hiatal hernia. White blood cell count was normal at 7.5 with an unremarkable differential. CMP was normal. UA had no evidence of infection. Enteric pathogen panel was negative. Fecal leukocytes were negative. Afebrile since admission. Vital signs are stable. She is 92-98% saturated on room air today. All lab was personally reviewed. Repeat lab on 01/02/2019 showed once again a normal white blood cell count with an unremarkable differential. Antibiotics were discontinued on 01/02/2019 due to the fact that the patient had a normal white blood cell count and was afebrile. She was given MiraLAX for constipation and then she received 2 liters of Go-Lytley on 01/02/19. she had a lot of brown water today per rectum but, very little formed stool. Tells me that for the past few weeks she has had a BM every AM but the caliber is smaller than normal. No weight loss. Last colonoscopy was 2005. No FH of colon CA. the pain in the LLQ is persistent and it does not move or change character.......it is not crampy. she is not passing gas but is belching. No emesis. Review of the CT shows some stool on the right side but no significant stool on the left.......I am worried she has a partial colonic obstruction. She also complains of feeling very tired recently. - Physical Exam General: Alert, Oriented x3, Cooperative, No apparent distress HEENT: Atraumatic, PERRLA, EOMI, Normocephalic Oral: Dry Mucosa Neck: Supple, No JVD Lungs: Clear to auscultation Cardiovascular: Regular rate, Regular Rhythm, Normal S1, Normal S2, No Gallop Abdomen: Soft, Non-Distended, Hyperactive Bowel Sounds, Tender - in the left LQ and left mid abdomen. no guarding with palpation, - - no masses appreciated Extremities: No clubbing, No cyanosis, No edema, No Calf Tenderness Skin: No rashes Musculoskeletal: No Muscle Wasting Neurological: Cranial nerves II-XII grossly intact, Neuro grossly intact Psych/Mental Status: Normal Affect, Appropriate Vital Signs Temp Pulse Resp BP Pulse Ox 98.4 F 77 14 130/100 H 98 01/03/19 09:00 01/03/19 09:00 01/03/19 09:00 01/03/19 09:00 01/03/19 09:00 Oxygen Delivery Method Room Air Weight: 194 lb 14.218 oz Body Mass Index (BMI) 34.5 Intake and Output for Last 24 Hours 01/01/19 01/02/19 01/03/19 23:59 23:59 23:59 Intake Total 2095 / 2095 3200 / 3200 400 / 400 Output Total 1000 / 1000 Balance 1095 / 1095 3200 / 3200 400 / 400 Microbiology Past 72 Hours 01/02/19 09:17 Enteric Bacteriology - Final Stool 01/02/19 09:17 Stool Lactoferrin - Final Stool Medical Necessity - Tobacco Use Smoking Status: Former smoker Assessment/Plan All Active Problems (Last Reviewed 01/01/19 @ 04:46 by Edmond Garcia MD) History of breast cancer (Acute) LLQ abdominal pain (Acute) Impressions 1. Left side abdominal pain with change in stool caliber - no evidence of infection. Afebrile with a normal WBC count. I am concerned that she may have a partial colon obstruction with the decreased caliber in stool and since she has had no colonoscopy since 2005 and has persistent pain I think she needs a colonoscopy. 2. Diverticulosis with no evidence of diverticulitis consult Dr. Chisholm for colonoscopy DC the Toradol and start Vicodin and continue MS PRN clear Liquid diet Code Visit Inpatient E&M: 98020 Subs Hosp L2
[2019-01-03] MEDS: Morphine 2 MG/ML Syringe IV ×2 (14:34→20:33)
[2019-01-03] MEDS: 0.9% NaCl Peripheral Flush Adult/Peds IV ×2 (14:40→20:33)
[2019-01-03 14:47] VITALS: BP 157/72; PULSE 65; RESP 16; TEMP 36.8; O2SAT 98
--- NOTE | 2019-01-03 15:07 | CHAPLAIN ---
Type of Pastoral Visit _x__ Initial Visit ___ Follow-up Visit ___ On-call Visit ___ General Patient Visit ___ Spiritual Assessment ___ Family Conference ___ Bereavement ___ Rapid Response ___ Code Blue ___ Other (describe below) Pastoral Care Referral From _x__ Patient ___ Family ___ Nurse ___ Physician ___ Level Vial Inspector ___ Research Pharmacist ___ Other (describe below) Sacrament/Intervention _x__ Active listening ___ Anointing ___ Yazidism ___ Bereavement ___ Communion ___ Janette exploration ___ _x__ Life review ___ Prayer ___ Reconciliation ___ Sacrament of Sick _x__ Supportive presence ___ Wedding ___ Other (describe below) Pastoral Comments
--- NOTE | 2019-01-03 16:27 | RAD_ITS ---
STUDY: X-RAY - ABDOMEN/PELVIS REASON FOR EXAM: Female, 68 years old. Left-sided abdominal pain, nausea TECHNIQUE: Single AP view of the abdomen / pelvis. COMPARISON: None. FINDINGS: Normal visualized lung bases. There is an unremarkable bowel gas pattern. There is no demonstrated free abdominal air. The visualized liver, spleen and kidneys are grossly normal in size and morphology. Normal soft tissue structures. There are degenerative changes of the lumbar spine. RAD/Abdomen Single View (Portable) IMPRESSION: Degenerative changes of the lumbar spine. There is no evidence of ileus or obstruction. Electronically Signed: Gareth Gonzalez MD at 16:46 EDT , Service support ,
--- NOTE | 2019-01-03 17:04 | CT_ITS ---
STUDY: CT ABDOMEN AND PELVIS WITHOUT CONTRAST REASON FOR EXAM: Female, 68 years old. LLQ PAIN, ISCHEMIC COLITIS, HTN, BREAST CA. RADIATION DOSAGE (If Supplied By Facility): CTDIvol = ( 14.83 ) mGy, DLP = ( 759.28 ) mGycm TECHNIQUE: Transaxial images were obtained from the dome of the diaphragm to the symphysis pubis without oral contrast, and without intravenous contrast. Sagittal and coronal images were reconstructed. Individualized dose optimization techniques were used for this CT. COMPARISON: None. FINDINGS: The visualized lung bases are unremarkable. The visualized portions of the heart are within normal limits. Multiple liver cysts are noted largest measures 5.7 cm is in the segment #6. Normal gallbladder and extrahepatic biliary system. Normal spleen. Normal pancreas. Normal bilateral adrenal glands. Normal right kidney. Multiple parapelvic cysts are seen in the left kidney the largest measures 2.5 cm. Normal visualized stomach. Normal small intestine. Normal colon. The appendix is visualized and appears normal. Normal abdominal aorta. Normal inferior vena cava. Normal retroperitoneum. Normal urinary bladder. Normal abdominal wall. There are diffuse degenerative changes of the visualized lumbar spine. CT/Abdomen/Pel W ORAL Cont Only IMPRESSION: Multiple liver cysts are noted largest measures 5.7 cm is in the segment #6. Multiple parapelvic cysts are seen in the left kidney the largest measures 2.5 cm. Electronically Signed: Macario Gonzales, at 2:53 EDT Tel , Service support ,
--- NOTE | 2019-01-03 17:05 | PCM.CONS.GEN ---
Problem List (1) LLQ abdominal pain Status: Acute Reason for Consult Date of Consultation: 01/03/19 Reason for Consultation: Left lower quadrant pain History of Present Illness: The patient is a 68 year old F admitted with left lower quadrant pain. Patient reports that for the last few weeks she has had diarrhea as well as smaller caliber stools. She is been having left lower quadrant pain for weeks as well. She does have nausea but no vomiting. She reports no fevers or chills. 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 She does not report any blood in her stool. She is able to tolerate a diet and she is tolerating clear liquids when I was talking to her. Past Medical History Medical History: Medical History (Last Reviewed 01/01/19 @ 04:46 by Edmond Garcia MD) Breast cancer C50.919 Carpal tunnel syndrome on both sides G56.03 Heart disease I51.9 Hyperlipidemia E78.5 Osteoarthritis M19.90 Osteopenia M85.80 Radiculopathy of leg M54.10 Hypertension I10 Allergies fexofenadine HCl [From Peggy-D 12 Hour] Adverse Reaction (Verified 12/31/18 21:53) unsure nitrofurantoin [From Macrobid] Adverse Reaction (Verified 12/31/18 17:42) Rash nitrofurantoin macrocrystalline [From Macrobid] Adverse Reaction (Verified 12/31/18 17:42) Rash oxycodone HCl [From OxyContin] Adverse Reaction (Verified 12/31/18 17:42) Nausea pseudoephedrine HCl [From Peggy-D 12 Hour] Adverse Reaction (Verified 12/31/18 21:53) unsure Tetracyclines Adverse Reaction (Verified 12/31/18 21:53) causes yeast infection Home Medications: Ambulatory Orders Medication Instructions Recorded Amlodipine [Norvasc] 5 mg PO DAILY 09/30/13 Atorvastatin Calcium [Lipitor] 20 mg PO QHS 09/30/13 Lisinopril [Zestril] 20 mg PO DAILY 09/30/13 Surgical History: Surgical History (Last Reviewed 01/01/19 @ 04:46 by Edmond Garcia MD) H/O dilation and curettage Z98.890 History of lumpectomy of right breast Z98.890 History of partial knee replacement Z96.659 bilateral Lives: Alone Smoking Status: Former smoker - *Family History Maternal Family History: Family History (Last Reviewed 01/01/19 @ 04:46 by Edmond Garcia MD) Father Heart disease Mother Diabetes Breast cancer Heart disease Review of Systems Constitutional: Denies: Anorexia, Fever HEENT: Denies: Difficulty Swallowing Cardiovascular: Denies: Chest Pain Respiratory: Denies: Cough Gastrointestinal: Reports: Abdominal Pain, Diarrhea, Nausea. Denies: Hematemesis, Hematochezia, Vomiting Genitourinary: Denies: Dysuria Skin: Denies: Jaundice Psychiatric: Denies: Depression Hematologic/ Lymphatic: Denies: Anemia Patient Problems: Active and Suspected Problems (Last Reviewed 01/01/19 @ 04:46 by Edmond Garcia MD) Acute diverticulitis (Suspected) Gastroenteritis (Suspected) LLQ abdominal pain (Acute) - Physical Exam General: Alert, Oriented x3, Cooperative, No apparent distress HEENT: Atraumatic, PERRLA, EOMI, Normocephalic Neck: No JVD Lungs: Normal air movement Cardiovascular: Regular rate, Regular Rhythm Abdomen: Soft, Non-Distended, Tender - Tender in the left lower quadrant. Extremities: No clubbing Skin: No rashes Musculoskeletal: No Muscle Wasting Neurological: Cranial nerves II-XII grossly intact Psych/Mental Status: Normal Affect Vital Signs Temp Pulse Resp BP Pulse Ox 98.2 F 65 16 157/72 H 98 01/03/19 14:47 01/03/19 14:47 01/03/19 14:47 01/03/19 14:47 01/03/19 14:47 Oxygen Delivery Method Room Air Weight: 194 lb 14.218 oz Body Mass Index (BMI) 34.5 Intake and Output for Last 24 Hours 01/01/19 01/02/19 01/03/19 23:59 23:59 23:59 Intake Total 2095 / 2095 3200 / 3200 800 / 800 Output Total 1000 / 1000 Balance 1095 / 1095 3200 / 3200 800 / 800 Microbiology Past 72 Hours 01/02/19 09:17 Enteric Bacteriology - Final Stool 01/02/19 09:17 Stool Lactoferrin - Final Stool Clinical Impression(s) from Imaging Studies Abdomen/Pelvis CT 12/31/18 17:41 IMPRESSION: 1. Urinary bladder is distended to approximately 825 mL at the time of scanning. No ureteral dilatation to indicate urinary tract obstruction. 2. There is stable bilateral pelvocaliectasis and/or clusters of bilateral parapelvic cysts. 3. Multiple hepatic cysts again noted. One of the largest, in the left lobe, is decreased in size today, while the others are grossly unchanged. 4. Stable [id number]-kw-yovxynip elevation of the right diaphragm, etiology uncertain. 5. Stable postsurgical changes in the deep soft tissues of the right breast. 6. Stable moderate aortoiliac atherosclerotic calcific plaquing. No demonstrated aneurysm. 7. Stable small hiatal hernia. The bowel is otherwise unremarkable without signs of obstruction. The appendix is normal. 8. Degenerative changes again seen in the spine, with progression since 2014 noted particularly at L3-4 Electronically Signed: Derik Mcguire MD at 19:31 EDT , Service support , KUB X-Ray 01/03/19 16:27 IMPRESSION: Degenerative changes of the lumbar spine. There is no evidence of ileus or obstruction. Electronically Signed: Gareth Gonzalez MD at 16:46 EDT , Service support , Assessment/Plan All Active Problems (Last Reviewed 01/01/19 @ 04:46 by Edmond Garcia MD) History of breast cancer (Acute) LLQ abdominal pain (Acute) 68-year-old female with left lower quadrant pain 1. I was consulted for concern about partial colonic obstruction. Patient reports her last colonoscopy in 2005. She says she has been having diarrhea with no solid stools. She was given 2 L of GoLYTELY and only liquid stool was the result. She is still complaining of left lower quadrant pain and nausea. I reviewed her CT scan with IV contrast and it showed cysts in the liver and pelvis. There is no noted abnormality of the bowel. I just got a stat KUB and it shows gas in the right and transverse colon with a paucity of gas in the left side. 2. I will start tonight by getting a CT scan with oral contrast only. If this does not show anything I may do an unprepped colonoscopy tomorrow in the late morning as there does not appear to be any stool in the colon. I explained colonoscopy detail and that she would still need an elective screening colonoscopy to make sure there are no small polyps. I also explained the increased risk of perforation with a closed loop obstruction if she has a competent ileocecal valve. I will reviewed the CAT scan with her in the morning and she may continue clear liquids tonight. If it does not show obstruction I may still take her for colonoscopy tomorrow. Tian Chisholm MD Pager: [facility] [address] [place] [address], [address] [place] [address] Office:
--- NOTE | 2019-01-03 17:08 | CON.PCM_ITS ---
Problem List (1) LLQ abdominal pain Status: Acute Reason for Consult Date of Consultation: 01/03/19 Reason for Consultation: Left lower quadrant pain History of Present Illness: The patient is a 68 year old F admitted with left lower quadrant pain. Patient reports that for the last few weeks she has had diarrhea as well as smaller caliber stools. She is been having left lower quadrant pain for weeks as well. She does have nausea but no vomiting. She reports no fevers or chills. 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 She does not report any blood in her stool. She is able to tolerate a diet and she is tolerating clear liquids when I was talking to her. Past Medical History Medical History: Medical History (Last Reviewed 01/01/19 @ 04:46 by Edmond Garcia MD) Breast cancer C50.919 Carpal tunnel syndrome on both sides G56.03 Heart disease I51.9 Hyperlipidemia E78.5 Osteoarthritis M19.90 Osteopenia M85.80 Radiculopathy of leg M54.10 Hypertension I10 Allergies fexofenadine HCl [From Peggy-D 12 Hour] Adverse Reaction (Verified 12/31/18 21:53) unsure nitrofurantoin [From Macrobid] Adverse Reaction (Verified 12/31/18 17:42) Rash nitrofurantoin macrocrystalline [From Macrobid] Adverse Reaction (Verified 12/31/18 17:42) Rash oxycodone HCl [From OxyContin] Adverse Reaction (Verified 12/31/18 17:42) Nausea pseudoephedrine HCl [From Peggy-D 12 Hour] Adverse Reaction (Verified 12/31/18 21:53) unsure Tetracyclines Adverse Reaction (Verified 12/31/18 21:53) causes yeast infection Home Medications: Ambulatory Orders Medication Instructions Recorded Amlodipine [Norvasc] 5 mg PO DAILY 09/30/13 Atorvastatin Calcium [Lipitor] 20 mg PO QHS 09/30/13 Lisinopril [Zestril] 20 mg PO DAILY 09/30/13 Surgical History: Surgical History (Last Reviewed 01/01/19 @ 04:46 by Edmond Garcia MD) H/O dilation and curettage Z98.890 History of lumpectomy of right breast Z98.890 History of partial knee replacement Z96.659 bilateral Lives: Alone Smoking Status: Former smoker - *Family History Maternal Family History: Family History (Last Reviewed 01/01/19 @ 04:46 by Edmond Garcia MD) Father Heart disease Mother Diabetes Breast cancer Heart disease Review of Systems Constitutional: Denies: Anorexia, Fever HEENT: Denies: Difficulty Swallowing Cardiovascular: Denies: Chest Pain Respiratory: Denies: Cough Gastrointestinal: Reports: Abdominal Pain, Diarrhea, Nausea. Denies: Hematemesis, Hematochezia, Vomiting Genitourinary: Denies: Dysuria Skin: Denies: Jaundice Psychiatric: Denies: Depression Hematologic/ Lymphatic: Denies: Anemia Patient Problems: Active and Suspected Problems (Last Reviewed 01/01/19 @ 04:46 by Edmond Garcia MD) Acute diverticulitis (Suspected) Gastroenteritis (Suspected) LLQ abdominal pain (Acute) - Physical Exam General: Alert, Oriented x3, Cooperative, No apparent distress HEENT: Atraumatic, PERRLA, EOMI, Normocephalic Neck: No JVD Lungs: Normal air movement Cardiovascular: Regular rate, Regular Rhythm Abdomen: Soft, Non-Distended, Tender - Tender in the left lower quadrant. Extremities: No clubbing Skin: No rashes Musculoskeletal: No Muscle Wasting Neurological: Cranial nerves II-XII grossly intact Psych/Mental Status: Normal Affect Vital Signs Temp Pulse Resp BP Pulse Ox 98.2 F 65 16 157/72 H 98 01/03/19 14:47 01/03/19 14:47 01/03/19 14:47 01/03/19 14:47 01/03/19 14:47 Oxygen Delivery Method Room Air Weight: 194 lb 14.218 oz Body Mass Index (BMI) 34.5 Intake and Output for Last 24 Hours 01/01/19 01/02/19 01/03/19 23:59 23:59 23:59 Intake Total 2095 / 2095 3200 / 3200 800 / 800 Output Total 1000 / 1000 Balance 1095 / 1095 3200 / 3200 800 / 800 Microbiology Past 72 Hours 01/02/19 09:17 Enteric Bacteriology - Final Stool 01/02/19 09:17 Stool Lactoferrin - Final Stool Clinical Impression(s) from Imaging Studies Abdomen/Pelvis CT 12/31/18 17:41 IMPRESSION: 1. Urinary bladder is distended to approximately 825 mL at the time of scanning. No ureteral dilatation to indicate urinary tract obstruction. 2. There is stable bilateral pelvocaliectasis and/or clusters of bilateral parapelvic cysts. 3. Multiple hepatic cysts again noted. One of the largest, in the left lobe, is decreased in size today, while the others are grossly unchanged. 4. Stable [id number] elevation of the right diaphragm, etiology uncertain. 5. Stable postsurgical changes in the deep soft tissues of the right breast. 6. Stable moderate aortoiliac atherosclerotic calcific plaquing. No demonstrated aneurysm. 7. Stable small hiatal hernia. The bowel is otherwise unremarkable without signs of obstruction. The appendix is normal. 8. Degenerative changes again seen in the spine, with progression since 2014 noted particularly at L3-4 Electronically Signed: Derik Mcguire MD at 19:31 EDT , Service support , KUB X-Ray 01/03/19 16:27 IMPRESSION: Degenerative changes of the lumbar spine. There is no evidence of ileus or obstruction. Electronically Signed: Gareth Gonzalez MD at 16:46 EDT , Service support , Assessment/Plan All Active Problems (Last Reviewed 01/01/19 @ 04:46 by Edmond Garcia MD) History of breast cancer (Acute) LLQ abdominal pain (Acute) 68-year-old female with left lower quadrant pain 1. I was consulted for concern about partial colonic obstruction. Patient reports her last colonoscopy in 2005. She says she has been having diarrhea with no solid stools. She was given 2 L of GoLYTELY and only liquid stool was the result. She is still complaining of left lower quadrant pain and nausea. I reviewed her CT scan with IV contrast and it showed cysts in the liver and pelvis. There is no noted abnormality of the bowel. I just got a stat KUB and it shows gas in the right and transverse colon with a paucity of gas in the left side. 2. I will start tonight by getting a CT scan with oral contrast only. If this does not show anything I may do an unprepped colonoscopy tomorrow in the late morning as there does not appear to be any stool in the colon. I explained colonoscopy detail and that she would still need an elective screening colonoscopy to make sure there are no small polyps. I also explained the increased risk of perforation with a closed loop obstruction if she has a competent ileocecal valve. I will reviewed the CAT scan with her in the morning and she may continue clear liquids tonight. If it does not show obstruction I may still take her for colonoscopy tomorrow. Tian Chisholm MD Pager: [facility] [address] [place] [address], [address] [place] [address] Office:
[2019-01-03 20:24] VITALS: BP 143/59; PULSE 57; RESP 14; TEMP 36.8; O2SAT 100
[2019-01-03] MEDS: Atorvastatin Calcium 20 MG Tablet PO (20:33)
[2019-01-04] VITALS (13 sets, daily range): BP systolic 107–133; BP diastolic 51–106; PULSE 55–103; RESP 16–18; TEMP 36.4–38.9; O2SAT 92–98
--- NOTE | 2019-01-04 07:51 | PN.SURG_ITS ---
Patient Problems: Active and Suspected Problems (Last Reviewed 01/01/19 @ 04:46 by Edmond Garcia MD) Acute diverticulitis (Suspected) Gastroenteritis (Suspected) LLQ abdominal pain (Acute) Subjective: Patient states that she had a few loose bowel movements. She does pass some gas and that made her feel little better but she is still complaining of left lower quadrant pain. No nausea or vomiting. - Physical Exam General: Alert, Cooperative Lungs: Normal air movement Cardiovascular: Regular rate, Regular Rhythm Abdomen: Soft, Non-Distended Vital Signs Temp Pulse Resp BP Pulse Ox 97.7 F L 66 18 118/60 98 01/04/19 07:31 01/04/19 07:31 01/04/19 07:31 01/04/19 07:31 01/04/19 07:31 Oxygen Delivery Method Room Air Weight: 194 lb 14.218 oz Body Mass Index (BMI) 34.5 Intake and Output for Last 24 Hours 01/02/19 01/03/19 01/04/19 23:59 23:59 23:59 Intake Total 3200 / 3200 1300 / 1300 910 / 910 Output Total 250 / 250 Balance 3200 / 3200 1300 / 1300 660 / 660 Microbiology Past 72 Hours 01/02/19 09:17 Enteric Bacteriology - Final Stool 01/02/19 09:17 Stool Lactoferrin - Final Stool Medical Necessity - Tobacco Use Smoking Status: Former smoker Assessment/Plan All Active Problems (Last Reviewed 01/01/19 @ 04:46 by Edmond Garcia MD) History of breast cancer (Acute) LLQ abdominal pain (Acute) 68-year-old female with left lower quadrant tenderness 1. I get a CT with oral contrast last evening which showed contrast getting through the entire colon. There is no sign of obstruction on the CT scan. I discussed colonoscopy with the patient and she would like to examine if anything is going wrong or if there is a cause of this pain. I will perform a colonoscopy this morning. I have made the patient n.p.o. and give her a bottle of mag citrate this morning. 2. I explained endoscopy in detail to the patient. I explained the risks including but not limited to stroke or heart attack with anesthesia, perforation of the GI tract, bleeding, infection. I explained that any of these could necessitate further emergency surgery. The patient understands and all questions were answered sufficiently. The patient wishes to proceed with procedure. Tian Chisholm MD Pager: [facility] [address] [place] [address] [address] [place] [address] Office:
[2019-01-04] MEDS: Magnesium Citrate 300 ML PO (08:05)
--- NOTE | 2019-01-04 10:16 | NURSING ---
REPORT CALLED TO MEAGAN WATKINS IN [facility]
--- NOTE | 2019-01-04 10:41 | PCM.PROGNOTE ---
Patient Problems: Active and Suspected Problems (Last Reviewed 01/01/19 @ 04:46 by Edmond Garcia MD) Acute diverticulitis (Suspected) Gastroenteritis (Suspected) LLQ abdominal pain (Acute) Subjective: All events of the past 24 hours of been reviewed. She is afebrile and vital signs are stable. Pulse ox is 95-100% on room air. Hemoglobin is stable and the white blood cell count is normal with an unremarkable differential. BMP is unremarkable. Continues to complain of left lower quadrant pain. She is having flatus today and has had a few bowel movements. She was seen by Dr. Chisholm who plans on endoscopy today. Objective: - Physical Exam General: Alert, Oriented x3, Cooperative, No apparent distress HEENT: Atraumatic, PERRLA, EOMI, Normocephalic Oral: Dry Mucosa Neck: Supple, No JVD Lungs: Clear to auscultation Cardiovascular: Regular rate, Regular Rhythm, Normal S1, Normal S2, No Gallop Abdomen: Soft, Non-Distended, Hyperactive Bowel Sounds, Tender - in the left LQ and left mid abdomen. no guarding with palpation, - - no masses appreciated Extremities: No clubbing, No cyanosis, No edema, No Calf Tenderness Skin: No rashes Musculoskeletal: No Muscle Wasting Neurological: Cranial nerves II-XII grossly intact, Neuro grossly intact Psych/Mental Status: Normal Affect, Appropriate - Physical Exam Vital Signs Temp Pulse Resp BP Pulse Ox 97.7 F L 66 18 118/60 98 01/04/19 07:31 01/04/19 07:31 01/04/19 07:31 01/04/19 07:31 01/04/19 07:31 Oxygen Delivery Method Room Air Weight: 194 lb 14.218 oz Body Mass Index (BMI) 34.5 Intake and Output for Last 24 Hours 01/02/19 01/03/19 01/04/19 23:59 23:59 23:59 Intake Total 3200 / 3200 1300 / 1300 910 / 910 Output Total 250 / 250 Balance 3200 / 3200 1300 / 1300 660 / 660 Microbiology Past 72 Hours 01/02/19 09:17 Enteric Bacteriology - Final Stool 01/02/19 09:17 Stool Lactoferrin - Final Stool Medical Necessity - Tobacco Use Smoking Status: Former smoker Assessment/Plan All Active Problems (Last Reviewed 01/01/19 @ 04:46 by Edmond Garcia MD) History of breast cancer (Acute) LLQ abdominal pain (Acute) Impressions 1. Left side abdominal pain with change in stool caliber - no evidence of infection. Afebrile with a normal WBC count. I am concerned that she may have a partial colon obstruction with the decreased caliber in stool and since she has had no colonoscopy since 2005 and has persistent pain I think she needs a colonoscopy. 2. Diverticulosis with no evidence of diverticulitis 3. Hypertension 4. Hyperlipidemia consult Dr. Chisholm for colonoscopy DC the Toradol and start Vicodin and continue MS PRN clear Liquid diet
--- NOTE | 2019-01-04 11:18 | OP.ENDO_ITS ---
01/04/2019 Jadiel Beebe MD [address] [id number] Re : Colonoscopy procedure for Brenda Quintero Dear Dr. Beebe This procedure was performed on Friday, January 04, 2019. My impressions and recommendations are as follows: Impressions : - The entire examined colon is normal on direct and retroflexion views. - No specimens collected. Recommendations : - [facility] to [facility]. - Resume previous diet. - Continue present medications. - Repeat colonoscopy is not recommended due to current age (66 years or older) for screening purposes. My findings are described in the full procedure note, which is enclosed. If I can be of further assistance, please feel free to contact me at Doctor phone number(s): , Work: . Sincerely, Tian Chisholm MD 01/04/2019 11:18:35 AM This report has been signed electronically.
--- NOTE | 2019-01-04 12:08 | NURSING ---
PT RETURN FROM COLONOSCOPY
[2019-01-04] MEDS: Enoxaparin 40 MG/0.4 ML Syringe SC (12:14)
[2019-01-04] MEDS: amLODIPine 5 MG Tablet PO (12:15)
[2019-01-04] MEDS: Lisinopril 20 MG Tablet PO (12:16)
[2019-01-04] MEDS: Ondansetron 4 MG/2 ML Vial IV (15:29)
[2019-01-04] MEDS: 0.9% NaCl Peripheral Flush Adult/Peds IV ×2 (15:30→16:33)
[2019-01-04] MEDS: 0.9% Normal Saline 1,000 ML 999 ML IV (15:40)
[2019-01-04 16:31] LABS: Absolute Lymphocyte Count 1.42 X10^3/ul (0.83-4.51); Absolute Neutrophil Count 11.8 X10^3/uL (2.0-7.7); Basophil# 0.02 X10^3/uL; Basophil% 0.1 % (0-1); Eosinophil# 0.03 X10^3/uL; Eosinophils% 0.2 % (0-5); Hematocrit 42.9 % (37-47); Lymphocyte # 1.42 X10^3/ul (4.0); Lymphocyte % 10.3 % (19-41); Mean Corp Hgb Conc 32.6 g/gl (32-36); Mean Corpuscular Hgb 30.8 pg (27.0-32.0); Mean Corpuscular Volume 94.3 fL (81-99); Mean Platelet Vol. 10.5 fl (6.2-12.0); Monocyte# 0.43 X10^3/uL; Monocyte% 3.1 % (0-10); Neutrophil # 11.84 X10^3/uL (2.7-7.7); Neutrophil % 86.2 % (47-70); Platelet Count 245 K/mm3 (150-450); RBC Distribution Width SD 43.7 fl (35.1-43.9); Red Blood Count 4.55 M/mm3 (4.2-5.4); White Blood Count 13.8 K/mm3 (4.4-11.0)
[2019-01-04 16:32] LABS: POSITIVE COUNT NO; POSITIVE DIFFERENTIAL NO; POSITIVE MORPHOLOGY NO
[2019-01-04] MEDS: proMETHazine 25 MG/ML Syringe 12.5 MG IV (16:32)
[2019-01-04 16:55] LABS: Anion Gap 4 (5-15); BUN 5 mg/dL (7-18); BUN/Creat Ratio 6.5 RATIO (10-20); Calcium,Total 8.4 mg/dL (8.5-10.1); Chloride 108 mmol/L (98-107); Creatinine, Serum 0.77 mg/dL (0.55-1.02); EST Glomerular Filtration Rate 79 mL/min (>60); Est Glom Filt Rate - Afr Amer 95 mL/min (>60); Estimated Creatinine Clearance 43.92 ml/min; Glucose 90 mg/dL (74-106); Potassium 3.7 mmol/L (3.5-5.1); Sodium Level 140 mmol/L (136-145)
[2019-01-04] MEDS: Acetaminophen 325 MG Tablet 650 MG PO (17:52)
--- NOTE | 2019-01-04 18:11 | RAD_ITS ---
HISTORY: Fever. EXAM/TECHNIQUE: XR Chest 2 Views: COMPARISON: CT abdomen pelvis earlier same date. FINDINGS: # of images incl. paperwork: 2 Multifocal opacities left mid and lower lung and right infrahilar lung. No apparent pneumothorax or pleural effusion. Elevation right hemidiaphragm. Heart size within normal limits. Atherosclerosis thoracic aorta. No acute osseous abnormality. Degenerative changes thoracic spine. RAD/Chest PA and Lateral IMPRESSION: Multifocal pneumonia. Most prominent in the left mid and lower lung. at [id number] Reported and signed by: Gareth Verdin MD Electronically Signed: Gareth Verdin, at 22:45 EDT Tel , Service support ,
--- NOTE | 2019-01-04 18:11 | CT_ITS ---
STUDY: CT ABDOMEN AND PELVIS WITHOUT CONTRAST REASON FOR EXAM: Female, 68 years old. Fever. Chills. Recent colonoscopy RADIATION DOSAGE (If Supplied By Facility): CTDIvol = ( 17.26 ) mGy, DLP = ( 927.08 ) mGycm TECHNIQUE: Transaxial images were obtained from the dome of the diaphragm to the symphysis pubis without oral contrast, and without intravenous contrast. Sagittal and coronal images were reconstructed. Individualized dose optimization techniques were used for this CT. COMPARISON: None. FINDINGS: There are left lower lung groundglass and airspace opacities. The visualized portions of the heart are within normal limits. There are multiple cysts in the liver measuring up to 5.7 cm in the right lobe. Normal gallbladder and extrahepatic biliary system. Normal spleen. Normal pancreas. Normal bilateral adrenal glands. Normal right kidney. There are parapelvic cysts of the left kidney. There is no hydronephrosis. Normal visualized stomach. Normal small intestine. Normal colon. The appendix is visualized and appears normal. There is diffuse atherosclerotic calcification of the abdominal aorta, without a demonstrated aneurysm. Normal inferior vena cava. Normal retroperitoneum. Normal urinary bladder. Normal visualized uterus. There is no free fluid in the abdomen or pelvis. Normal abdominal wall. There are diffuse degenerative changes of the visualized lumbar spine. CT/Abdomen/Pelvis without Cont IMPRESSION: Left lower lung infiltrate or edema. Stable cysts in the liver and left kidney. No dilated loops of bowel. Electronically Signed: Yovani Gilbert MD at 19:18 EDT , Service support ,
--- NOTE | 2019-01-04 18:27 | NURSING ---
DR MENDOZA NOTIFIED OF PT TEMP 102.1 NEW ORDERS RECEIVED.
[2019-01-04] MEDS: Atorvastatin Calcium 20 MG Tablet PO (21:07)
[2019-01-05 03:09] VITALS: BP 112/50; PULSE 66; RESP 16; TEMP 37.1; O2SAT 95
[2019-01-05 09:25] VITALS: BP 107/49; PULSE 78; RESP 16; TEMP 36.6; O2SAT 94
[2019-01-05] MEDS: amLODIPine 5 MG Tablet PO (09:37)
[2019-01-05] MEDS: Lisinopril 20 MG Tablet PO (09:37)
[2019-01-05] MEDS: Enoxaparin 40 MG/0.4 ML Syringe SC (09:37)
--- NOTE | 2019-01-05 12:04 | PCM.PROGNOTE ---
Patient Problems: Active and Suspected Problems (Last Reviewed 01/01/19 @ 04:46 by Edmond Garcia MD) Acute diverticulitis (Suspected) Gastroenteritis (Suspected) LLQ abdominal pain (Acute) Subjective: Day #2 Zosyn All events of the past 24 hours of been reviewed. T-max is 102.1 ?F and the current temp is 97.9. Vital signs are stable. She is 94-96% saturated on room air. Blood cultures are pending. She continues to be hoarse. She denies any difficulty swallowing. She denies sore throat. She coughs, especially when she uses the IS and she is doing very well with this. She denies chest pain. She denies abdominal pain. Denies nausea. Appetite is poor. Objective: PHYSICAL EXAM: GENERAL: alert, oriented X 3, Cooperative, NAD ORAL: moist mucosa, no mucosal lesions, hoarse voice NECK: No JVD, supple, trachea midline LUNGS: No wheezes, rales in both bases, left greater than right. No conversational dyspnea, not tachypneic, no accessory muscle use. HEART: RRR, Normal S1 and S2, no rub, no gallop ABDOMEN: soft, NT, ND, BS present, no guarding with palpation EXTREMITIES: no edema, no cyanosis, no calf tenderness SKIN: No rashes, no breakdown NEUROLOGIC: no focal neurologic deficits PSYCH: appropriate, normal affect, pleasant - Physical Exam Vital Signs Temp Pulse Resp BP Pulse Ox 97.9 F 78 16 107/49 L 94 01/05/19 09:25 01/05/19 09:25 01/05/19 09:25 01/05/19 09:25 01/05/19 09:25 Oxygen Delivery Method Room Air Weight: 194 lb 14.218 oz Body Mass Index (BMI) 34.5 Intake and Output for Last 24 Hours 01/03/19 01/04/19 01/05/19 23:59 23:59 23:59 Intake Total 1300 / 1300 3588 / 3588 820 / 820 Output Total 250 / 250 Balance 1300 / 1300 3338 / 3338 820 / 820 Microbiology Past 72 Hours 01/02/19 09:17 Enteric Bacteriology - Final Stool 01/02/19 09:17 Stool Lactoferrin - Final Stool Laboratory Tests Past 24 Hrs 04/09/19 04/09/19 16:05 16:05 WBC 13.8 H RBC 4.55 Hgb 14.0 Hct 42.9 MCV 94.3 MCH 30.8 MCHC 32.6 RDW 13.0 RDW Differential 43.7 Plt Count 245 MPV 10.5 Immature Gran % (Auto) 0.100 Neut % (Auto) 86.2 H Lymph % (Auto) 10.3 L Davidson % (Auto) 3.1 Eos % (Auto) 0.2 Baso % (Auto) 0.1 Absolute Neuts (auto) 11.8 H Absolute Lymphs (auto) 1.42 Total Counted Not Reportable Sodium 140 Potassium 3.7 Chloride 108 H Carbon Dioxide 28.0 Anion Gap 4 L BUN 5 L Creatinine 0.77 Estim Creat Clear Calc 43.92 Est GFR (MDRD) Af Amer 95 Est GFR (MDRD) Non-Af 79 BUN/Creatinine Ratio 6.5 L Glucose 90 Calcium 8.4 L Medical Necessity - Tobacco Use Smoking Status: Former smoker Assessment/Plan All Active Problems (Last Reviewed 01/01/19 @ 04:46 by Edmond Garcia MD) History of breast cancer (Acute) LLQ abdominal pain (Acute) Impressions 1. Left side abdominal pain with change in stool caliber - no evidence of infection. Afebrile with a normal WBC count. I am concerned that she may have a partial colon obstruction with the decreased caliber in stool and since she has had no colonoscopy since 2005 and has persistent pain I think she needs a colonoscopy. 2. Diverticulosis with no evidence of diverticulitis 3. Hypertension 4. Hyperlipidemia 5. Aspiration pneumonia Continue Zosyn Continue IS Encouraged her to ambulate today. Explained to her that she has diverticulosis but not diverticulitis. Start a stool softener. Recheck lab in the a.m. PA and lateral chest x-ray in the a.m. Ambulatory pulse ox on room air prior to discharge Code Visit Inpatient E&M: 17766 Subs Hosp L2
--- NOTE | 2019-01-05 12:40 | PN.SURG_ITS ---
Patient Problems: Active and Suspected Problems (Last Reviewed 01/01/19 @ 04:46 by Edmond Garcia MD) Acute diverticulitis (Suspected) Gastroenteritis (Suspected) LLQ abdominal pain (Acute) Subjective: Patient has been having some hoarseness since surgery. Yesterday she was febrile with some tachycardia and a CT was performed. - Physical Exam General: Alert, Oriented x3, Cooperative Lungs: Normal air movement Abdomen: Soft, Non Tender, Non-Distended Vital Signs Temp Pulse Resp BP Pulse Ox 97.9 F 78 16 107/49 L 94 01/05/19 09:25 01/05/19 09:25 01/05/19 09:25 01/05/19 09:25 01/05/19 09:25 Oxygen Delivery Method Room Air Weight: 194 lb 14.218 oz Body Mass Index (BMI) 34.5 Intake and Output for Last 24 Hours 01/03/19 01/04/19 01/05/19 23:59 23:59 23:59 Intake Total 1300 / 1300 3588 / 3588 820 / 820 Output Total 250 / 250 Balance 1300 / 1300 3338 / 3338 820 / 820 Microbiology Past 72 Hours 01/02/19 09:17 Enteric Bacteriology - Final Stool 01/02/19 09:17 Stool Lactoferrin - Final Stool Laboratory Tests Past 24 Hrs 01/04/19 01/04/19 16:05 16:05 WBC 13.8 H RBC 4.55 Hgb 14.0 Hct 42.9 MCV 94.3 MCH 30.8 MCHC 32.6 RDW 13.0 RDW Differential 43.7 Plt Count 245 MPV 10.5 Immature Gran % (Auto) 0.100 Neut % (Auto) 86.2 H Lymph % (Auto) 10.3 L Jack % (Auto) 3.1 Eos % (Auto) 0.2 Baso % (Auto) 0.1 Absolute Neuts (auto) 11.8 H Absolute Lymphs (auto) 1.42 Total Counted Not Reportable Sodium 140 Potassium 3.7 Chloride 108 H Carbon Dioxide 28.0 Anion Gap 4 L BUN 5 L Creatinine 0.77 Estim Creat Clear Calc 43.92 Est GFR (MDRD) Af Amer 95 Est GFR (MDRD) Non-Af 79 BUN/Creatinine Ratio 6.5 L Glucose 90 Calcium 8.4 L Medical Necessity - Tobacco Use Smoking Status: Former smoker Assessment/Plan All Active Problems (Last Reviewed 01/01/19 @ 04:46 by Edmond Garcia MD) History of breast cancer (Acute) LLQ abdominal pain (Acute) 68-year-old female with abdominal pain 1. I performed a colonoscopy yesterday for her. On colonoscopy there were no polyps or signs of obstruction. There were no strictures or masses. After surgery she became febrile and tachycardic and a CT was performed which showed no signs of perforation. It did however show opacities in the left lower lobe. Patient likely aspirated during surgery. 2. Patient is on antibiotics and being treated by the primary team for aspiration pneumonia. Tian Chisholm MD Pager: [facility] [address] [place] [address], [address] [place] [address] Office:
[2019-01-05] MEDS: 0.9% NaCl Peripheral Flush Adult/Peds IV (13:59)
[2019-01-05 14:35] VITALS: BP 133/51; PULSE 82; RESP 16; TEMP 36.6; O2SAT 96
[2019-01-05 20:35] VITALS: BP 126/61; PULSE 75; RESP 16; TEMP 37.3; O2SAT 97
[2019-01-05 20:44] VITALS: O2SAT 97
[2019-01-05] MEDS: Atorvastatin Calcium 20 MG Tablet PO (21:28)
[2019-01-06] MEDS: Acetaminophen 325 MG Tablet 650 MG PO (00:15)
[2019-01-06 01:54] VITALS: BP 128/56; PULSE 73; RESP 16; TEMP 37.2; O2SAT 97
[2019-01-06 05:44] LABS: Anion Gap 5 (5-15); BUN 7 mg/dL (7-18); BUN/Creat Ratio 9.7 RATIO (10-20); Calcium,Total 7.9 mg/dL (8.5-10.1); Chloride 110 mmol/L (98-107); Creatinine, Serum 0.72 mg/dL (0.55-1.02); EST Glomerular Filtration Rate 85 mL/min (>60); Est Glom Filt Rate - Afr Amer 103 mL/min (>60); Estimated Creatinine Clearance 43.92 ml/min; Glucose 95 mg/dL (74-106); Potassium 3.7 mmol/L (3.5-5.1); Sodium Level 142 mmol/L (136-145)
[2019-01-06 05:46] LABS: Absolute Lymphocyte Count 1.96 X10^3/ul (0.83-4.51); Absolute Neutrophil Count 7.1 X10^3/uL (2.0-7.7); Basophil# 0.03 X10^3/uL; Basophil% 0.3 % (0-1); Eosinophil# 0.17 X10^3/uL; Eosinophils% 1.7 % (0-5); Hematocrit 36.8 % (37-47); Lymphocyte # 1.96 X10^3/ul (4.0); Lymphocyte % 19.8 % (19-41); Mean Corp Hgb Conc 32.6 g/gl (32-36); Mean Corpuscular Hgb 30.4 pg (27.0-32.0); Mean Corpuscular Volume 93.2 fL (81-99); Mean Platelet Vol. 10.4 fl (6.2-12.0); Monocyte# 0.65 X10^3/uL; Monocyte% 6.6 % (0-10); Neutrophil # 7.08 X10^3/uL (2.7-7.7); Neutrophil % 71.4 % (47-70); Platelet Count 208 K/mm3 (150-450); RBC Distribution Width SD 43.2 fl (35.1-43.9); Red Blood Count 3.95 M/mm3 (4.2-5.4); White Blood Count 9.9 K/mm3 (4.4-11.0)
[2019-01-06 05:47] LABS: POSITIVE COUNT NO; POSITIVE DIFFERENTIAL NO; POSITIVE MORPHOLOGY NO
--- NOTE | 2019-01-06 05:55 | RAD_ITS ---
STUDY: X-RAY CHEST REASON FOR EXAM: Female, 68 years old. History of aspiration pneumonia. TECHNIQUE: PA and lateral views of the chest. COMPARISON: Comparison is made with prior study dated January 04, 2019. FINDINGS: Improved aeration of the focal infiltrate in the left upper and left lower lobes. Residual infiltrate persists. Improved aeration of the right infrahilar infiltrate as well. There is no demonstrated pleural abnormality. Normal size heart. Normal mediastinum and ash. Normal visualized pulmonary arteries. There is atherosclerotic calcification of the aortic arch with tortuosity. Normal visualized thoracic spine. There is degenerative osteoarthritis of the bilateral shoulders. There is no demonstrated abnormality of the visualized soft tissue structures of the upper abdomen. RAD/Chest PA and Lateral IMPRESSION: Since prior study, there is been improvement in aeration of the bilateral patchy infiltrates more prominent on the left side. Electronically Signed: Karson Fernández, at 14:58 EDT , Service support ,
[2019-01-06 08:00] VITALS: BP 126/65; PULSE 83; RESP 18; TEMP 36.7; O2SAT 98
--- NOTE | 2019-01-06 08:55 | PCM.PN.SRG ---
Patient Problems: Active and Suspected Problems (Last Reviewed 01/01/19 @ 04:46 by Edmond Garcia MD) Acute diverticulitis (Suspected) Gastroenteritis (Suspected) LLQ abdominal pain (Acute) Subjective: Patient reports that she is tolerating a diet and not having any abdominal pain today. She is still complaining of hoarseness. No shortness of breath. - Physical Exam General: Alert, Oriented x3 Lungs: Normal air movement Abdomen: Soft, Non Tender, Non-Distended Vital Signs Temp Pulse Resp BP Pulse Ox 98.9 F 73 16 128/56 H 97 01/06/19 01:54 01/06/19 01:54 01/06/19 01:54 01/06/19 01:54 01/06/19 01:54 Oxygen Delivery Method Room Air Weight: 194 lb 14.218 oz Body Mass Index (BMI) 34.5 Intake and Output for Last 24 Hours 01/04/19 01/05/19 01/06/19 23:59 23:59 23:59 Intake Total 3588 / 3588 1402 / 1402 300 / 300 Output Total 250 / 250 Balance 3338 / 3338 1402 / 1402 300 / 300 Laboratory Tests Past 24 Hrs 01/06/19 01/06/19 05:08 05:08 WBC 9.9 RBC 3.95 L Hgb 12.0 Hct 36.8 L MCV 93.2 MCH 30.4 MCHC 32.6 RDW 13.0 RDW Differential 43.2 Plt Count 208 MPV 10.4 Immature Gran % (Auto) 0.200 Neut % (Auto) 71.4 H Lymph % (Auto) 19.8 [place] % (Auto) 6.6 Eos % (Auto) 1.7 Baso % (Auto) 0.3 Absolute Neuts (auto) 7.1 Absolute Lymphs (auto) 1.96 Total Counted Not Reportable Sodium 142 Potassium 3.7 Chloride 110 H Carbon Dioxide 27.0 Anion Gap 5 BUN 7 Creatinine 0.72 Estim Creat Clear Calc 43.92 Est GFR (MDRD) Af Amer 103 Est GFR (MDRD) Non-Af 85 BUN/Creatinine Ratio 9.7 L Glucose 95 Calcium 7.9 L Medical Necessity - Tobacco Use Smoking Status: Former smoker Assessment/Plan All Active Problems (Last Reviewed 01/01/19 @ 04:46 by Edmond aGrcia MD) History of breast cancer (Acute) LLQ abdominal pain (Acute) 68-year-old female status post colonoscopy 1. Patient likely had aspiration pneumonia during her colonoscopy. She is still on room air and she is complaining of hoarseness. She is tolerating a regular diet with no abdominal pain today. Tian Chisholm MD Pager: [facility] [address] [place] [address], [address] [place] [address] Office:
[2019-01-06] MEDS: amLODIPine 5 MG Tablet PO (09:37)
[2019-01-06] MEDS: Polyethylene Glycol 3350 17 GM PACKET PO (09:37)
[2019-01-06] MEDS: Lisinopril 20 MG Tablet PO (09:37)
[2019-01-06] MEDS: Enoxaparin 40 MG/0.4 ML Syringe SC (09:38)
[2019-01-06 09:52] VITALS: O2SAT 100
--- NOTE | 2019-01-06 13:26 | CASEMGMT ---
RN CM followed up with patient regarding discharge needs. Patient denies needs at this time. Plan is to discharge home with family support and follow-up plans in place. CM available should discharge needs arise.
[2019-01-06] MEDS: 0.9% NaCl Peripheral Flush Adult/Peds IV (14:00)
[2019-01-06 14:13] VITALS: BP 151/65; PULSE 78; RESP 18; TEMP 37; O2SAT 98
--- NOTE | 2019-01-06 15:57 | DCINST_ITS ---
- Discharge Diagnoses Current Active Problems: Current Active and Chronic Problems (Last Reviewed 01/01/19 @ 04:46 by Edmond Garcia MD) LLQ abdominal pain (Acute) You will use the following diet at home:: No restrictions Your food should be the consistency of: Regular Your liquids should be the consistency of: Regular/Thin Discharge Activity: - - You will feel more tired than usual. Over the next 1-2 weeks you should get plenty of rest. Try and ambulate a few times during the day to keep your joints from stiffening. Continue to use the incentive spirometer for 10 breaths every hour while awake. Call your doctor if you observe: Fever of 101 or Higher, Shortness of breath, Dizziness, Fainting spells, Chest pain, Calf discomfort, - - Call your PCP if severe diarrhea ( > 5 stools a day), painful sores in the mouth, painful swallowing, rash or itching. Taking a probiotic such as Lactobacillus or Kefir can help with loose stools while taking antibiotics. Instructions: Amoxicillin Trihydrate, Clavulanate Potassium Oral tablet, extended-release Additional Instructions: 1. Make sure to finish all of the antibiotic. Take the antibiotic with food. I have also given you a prescription for Mucinex to help bring up sputum. 2. Any antibiotic can cause diarrhea/loose stools. Taking a probiotic can help. 3. To prevent any trouble with diverticulosis keep your stool soft. You can take Miralx or metamucil or Citracel. 4. It was a pleasure to meet you and take care of yourself. Pending Tests on Discharge: blood cultures Allergies/Adverse Reactions: Allergies fexofenadine HCl [From Peggy-D 12 Hour] Adverse Reaction (Verified 12/31/18 21:53) unsure nitrofurantoin [From Macrobid] Adverse Reaction (Verified 12/31/18 17:42) Rash nitrofurantoin macrocrystalline [From Macrobid] Adverse Reaction (Verified 12/31/18 17:42) Rash oxycodone HCl [From OxyContin] Adverse Reaction (Verified 12/31/18 17:42) Nausea pseudoephedrine HCl [From Peggy-D 12 Hour] Adverse Reaction (Verified 12/31/18 21:53) unsure Tetracyclines Adverse Reaction (Verified 12/31/18 21:53) causes yeast infection Medications to take at Discharge Amlodipine [Norvasc] 5 mg PO DAILY 09/30/13 Atorvastatin Calcium [Lipitor] 20 mg PO QHS 09/30/13 Lisinopril [Zestril] 20 mg PO DAILY 09/30/13 Amox/Clavulanate Tablet [Augmentin Tablet] 875 mg PO Q12H #14 tablet 01/06/19 Guaifenesin [Mucinex] 600 mg PO BID #20 tab.er.12h 01/06/19 Polyethylene Glycol 3350 [Miralax] 17 gm PO DAILY packet 01/06/19 The following prescriptions were given: Amox/Clavulanate Tablet [Augmentin Tablet] 875 mg PO Q12H #14 tablet Guaifenesin [Mucinex] 600 mg PO BID #20 tab.er.12h Primary Care Physician: Jadiel Beebe MD [Primary Care Provider] - Please follow up with your Primary Care Physician in: next week Test Results: Test results from this visit will be discussed in further detail at your follow- up appointment, if applicable. Proposed Discharge Date: 01/06/19
--- NOTE | 2019-01-06 16:05 | PCM.DC.SUM ---
Discharge Date and Diagnosis Date of Admission: 12/31/18 Date of Discharge: 01/06/19 - Primary Discharge Diagnosis Active and Suspected Problems (Last Reviewed 01/01/19 @ 04:46 by Edmond Garcia MD) LLQ abdominal pain (Acute)-etiology undetermined Diverticulosis (Acute)without diverticulitis Aspiration pneumonia (Acute) - Secondary Discharge Diagnosis HTN HLD hx of Breast CA Hospital Course and Treatment Imaging Results: Clinical Impression(s) from Imaging Studies Abdomen/Pelvis CT 12/31/18 17:41 IMPRESSION: 1. Urinary bladder is distended to approximately 825 mL at the time of scanning. No ureteral dilatation to indicate urinary tract obstruction. 2. There is stable bilateral pelvocaliectasis and/or clusters of bilateral parapelvic cysts. 3. Multiple hepatic cysts again noted. One of the largest, in the left lobe, is decreased in size today, while the others are grossly unchanged. 4. Stable htzf-[id number] elevation of the right diaphragm, etiology uncertain. 5. Stable postsurgical changes in the deep soft tissues of the right breast. 6. Stable moderate aortoiliac atherosclerotic calcific plaquing. No demonstrated aneurysm. 7. Stable small hiatal hernia. The bowel is otherwise unremarkable without signs of obstruction. The appendix is normal. 8. Degenerative changes again seen in the spine, with progression since 2014 noted particularly at L3-4 Electronically Signed: Derik Mcguire MD at 19:31 EDT , Service support , KUB X-Ray 01/03/19 16:27 IMPRESSION: Degenerative changes of the lumbar spine. There is no evidence of ileus or obstruction. Electronically Signed: Gareth Gonzalez MD at 16:46 EDT , Service support , Abdomen CT 01/03/19 17:04 IMPRESSION: Multiple liver cysts are noted largest measures 5.7 cm is in the segment #6. Multiple parapelvic cysts are seen in the left kidney the largest measures 2.5 cm. Electronically Signed: Macario Gonzales at 2:53 EDT Tel , Service support , Abdomen/Pelvis CT 01/04/19 18:11 IMPRESSION: Left lower lung infiltrate or edema. Stable cysts in the liver and left kidney. No dilated loops of bowel. Electronically Signed: Yovani Gilbert MD at 19:18 EDT , Service support , Chest X-Ray 01/04/19 18:11 IMPRESSION: Multifocal pneumonia. Most prominent in the left mid and lower lung. at 0736 Reported and signed by: Gareth Verdin MD Electronically Signed: Gareth Verdin, at 22:45 EDT Tel , Service support , Chest X-Ray 01/06/19 05:55 IMPRESSION: Since prior study, there is been improvement in aeration of the bilateral patchy infiltrates more prominent on the left side. Electronically Signed: Karson Jolene, at 14:58 EDT , Service support , Laboratory Results - last 24 hr 01/06/19 01/06/19 05:08 05:08 WBC 9.9 RBC 3.95 L Hgb 12.0 Hct 36.8 L MCV 93.2 MCH 30.4 MCHC 32.6 RDW 13.0 RDW Differential 43.2 Plt Count 208 MPV 10.4 Immature Gran % (Auto) 0.200 Neut % (Auto) 71.4 H Lymph % (Auto) 19.8 [place] % (Auto) 6.6 Eos % (Auto) 1.7 Baso % (Auto) 0.3 Absolute Neuts (auto) 7.1 Absolute Lymphs (auto) 1.96 Total Counted Not Reportable Sodium 142 Potassium 3.7 Chloride 110 H Carbon Dioxide 27.0 Anion Gap 5 BUN 7 Creatinine 0.72 Estim Creat Clear Calc 43.92 Est GFR (MDRD) Af Amer 103 Est GFR (MDRD) Non-Af 85 BUN/Creatinine Ratio 9.7 L Glucose 95 Calcium 7.9 L Microbiology 01/02/19 09:17 Stool Enteric Bacteriology - Final - negative 01/02/19 09:17 Stool Stool Lactoferrin - Final - negative Blood Cultures - no growth in 48H, final is pending Dr. Tian Chisholm - general surgery Operations: None Procedures: Colonoscopy - Impressions : - The entire examined colon is normal on direct and retroflexion views. - No specimens collected. Summary of Care Provided: The patient is a 68-year-old female with a past medical history of breast cancer, bilateral carpal tunnel syndrome, coronary artery disease, hyperlipidemia, osteoarthritis, osteopenia, radiculopathy lower extremity and hypertension who presented to the emergency department at [facility] on 12/31/2018 complaining of left lower quadrant abdominal pain and loose stools. The CT scan of the abdomen and pelvis showed no acute findings but did show persistent multiple hepatic cysts, elevation of the right hemidiaphragm, moderate aortoiliac atherosclerotic plaquing and a small hiatal hernia. White blood cell count was normal at 7.5 with an unremarkable differential. CMP was normal. UA had no evidence of infection. Enteric pathogen panel was negative. Fecal leukocytes were negative. Dr. Chisholm was consulted for his opinion on the etiology of the left lower quadrant abdominal pain. Colonoscopy was performed on 01/04/2019. The entire colon was examined on direct and retroflexion views and was normal. After returning from colonoscopy she began experiencing shaking chills and then later had a fever. A stat CT scan of the abdomen and pelvis was obtained to rule out perforation. There was no evidence of free air in the abdomen and no evidence of perforation. There was left lower lung infiltrate present. The white blood cell count was elevated at 13.8 with a left shift. She was diagnosed with probable aspiration pneumonia and started on Zosyn. After a few days of Zosyn she was afebrile with stable vital signs and she was 98 100% saturated on room air. On 411 the white blood cell count was 9.9 with an unremarkable differential. Hemoglobin was stable. She was transitioned to Augmentin 875 mg every 12 hours which she will continue for 7 days post discharge. She will follow-up with Dr. Jadiel Beebe in 1 week. GENERAL: alert, oriented X 3, Cooperative, NAD ORAL: moist mucosa, no mucosal lesions, hoarse voice NECK: No JVD, supple, trachea midline LUNGS: No wheezes, few coarse crackles in the left base only. No conversational dyspnea, not tachypneic, no accessory muscle use. HEART: RRR, Normal S1 and S2, no rub, no gallop ABDOMEN: soft, NT, ND, BS present, no guarding with palpation EXTREMITIES: no edema, no cyanosis, no calf tenderness SKIN: No rashes, no breakdown NEUROLOGIC: no focal neurologic deficits PSYCH: appropriate, normal affect, pleasant This note was generated with [employer] dictation software. It may contain incorrect words, spelling, and punctuation that were not noted in checking the note before signing. - Physical Exam Vital Signs Temp Pulse Resp BP Pulse Ox 98.6 F 78 18 151/65 H 98 01/06/19 14:13 01/06/19 14:13 01/06/19 14:13 01/06/19 14:13 01/06/19 14:13 Oxygen Delivery Method Room Air Weight: 194 lb 14.218 oz Body Mass Index (BMI) 34.5 Intake and Output for Last 24 Hours 01/04/19 01/05/19 01/06/19 23:59 23:59 23:59 Intake Total 3588 / 3588 1402 / 1402 785 / 785 Output Total 250 / 250 Balance 3338 / 3338 1402 / 1402 785 / 785 Laboratory Tests Past 24 Hrs 01/06/19 01/06/19 05:08 05:08 WBC 9.9 RBC 3.95 L Hgb 12.0 Hct 36.8 L MCV 93.2 MCH 30.4 MCHC 32.6 RDW 13.0 RDW Differential 43.2 Plt Count 208 MPV 10.4 Immature Gran % (Auto) 0.200 Neut % (Auto) 71.4 H Lymph % (Auto) 19.8 [place] % (Auto) 6.6 Eos % (Auto) 1.7 Baso % (Auto) 0.3 Absolute Neuts (auto) 7.1 Absolute Lymphs (auto) 1.96 Total Counted Not Reportable Sodium 142 Potassium 3.7 Chloride 110 H Carbon Dioxide 27.0 Anion Gap 5 BUN 7 Creatinine 0.72 Estim Creat Clear Calc 43.92 Est GFR (MDRD) Af Amer 103 Est GFR (MDRD) Non-Af 85 BUN/Creatinine Ratio 9.7 L Glucose 95 Calcium 7.9 L Discharge Activity: - - You will feel more tired than usual. Over the next 1-2 weeks you should get plenty of rest. Try and ambulate a few times during the day to keep your joints from stiffening. Continue to use the incentive spirometer for 10 breaths every hour while awake. Call your doctor if you observe: Fever of 101 or Higher, Shortness of breath, Dizziness, Fainting spells, Chest pain, Calf discomfort, - - Call your PCP if severe diarrhea ( > 5 stools a day), painful sores in the mouth, painful swallowing, rash or itching. Taking a probiotic such as Lactobacillus or Kefir can help with loose stools while taking antibiotics. Home Medications: Medications to take at Discharge Amlodipine [Norvasc] 5 mg PO DAILY 09/30/13 Atorvastatin Calcium [Lipitor] 20 mg PO QHS 09/30/13 Lisinopril [Zestril] 20 mg PO DAILY 09/30/13 Amox/Clavulanate Tablet [Augmentin Tablet] 875 mg PO Q12H #14 tablet 01/06/19 Guaifenesin [Mucinex] 600 mg PO BID #20 tab.er.12h 01/06/19 Polyethylene Glycol 3350 [Miralax] 17 gm PO DAILY packet 01/06/19 Following Prescrptions Were Given to Patient: Amox/Clavulanate Tablet [Augmentin Tablet] 875 mg PO Q12H #14 tablet Guaifenesin [Mucinex] 600 mg PO BID #20 tab.er.12h Primary Care Physician: Jadiel Beebe MD [Primary Care Provider] - Please follow up with your Primary Care Physician in: next week Patient Instructions: Amoxicillin Trihydrate, Clavulanate Potassium Oral tablet, extended-release Disposition: Home Minutes spent on discharge:: 30 Patient Condition:: Good Medical Necessity - Tobacco Use Smoking Status: Former smoker Tobacco Use: Non-smoker Meaningful Use Info Meaningful Use Diagnoses (Choose all that apply): None applicable Code Visit Inpatient E&M: 14854 Disch Hosp
--- NOTE | 2019-01-06 16:09 | DS.PCM_ITS ---
Discharge Date and Diagnosis Date of Admission: 12/31/18 Date of Discharge: 01/06/19 - Primary Discharge Diagnosis Active and Suspected Problems (Last Reviewed 01/01/19 @ 04:46 by Edmond Garcia MD) LLQ abdominal pain (Acute)-etiology undetermined Diverticulosis (Acute)without diverticulitis Aspiration pneumonia (Acute) - Secondary Discharge Diagnosis HTN HLD hx of Breast CA Hospital Course and Treatment Imaging Results: Clinical Impression(s) from Imaging Studies Abdomen/Pelvis CT 12/31/18 17:41 IMPRESSION: 1. Urinary bladder is distended to approximately 825 mL at the time of scanning. No ureteral dilatation to indicate urinary tract obstruction. 2. There is stable bilateral pelvocaliectasis and/or clusters of bilateral parapelvic cysts. 3. Multiple hepatic cysts again noted. One of the largest, in the left lobe, is decreased in size today, while the others are grossly unchanged. 4. Stable [id number] elevation of the right diaphragm, etiology uncertain. 5. Stable postsurgical changes in the deep soft tissues of the right breast. 6. Stable moderate aortoiliac atherosclerotic calcific plaquing. No demonstrated aneurysm. 7. Stable small hiatal hernia. The bowel is otherwise unremarkable without signs of obstruction. The appendix is normal. 8. Degenerative changes again seen in the spine, with progression since 2014 noted particularly at L3-4 Electronically Signed: Derik Mcguire MD at 19:31 EDT , Service support , KUB X-Ray 01/03/19 16:27 IMPRESSION: Degenerative changes of the lumbar spine. There is no evidence of ileus or obstruction. Electronically Signed: Gareth Gonzalez MD at 16:46 EDT , Service support , Abdomen CT 01/03/19 17:04 IMPRESSION: Multiple liver cysts are noted largest measures 5.7 cm is in the segment #6. Multiple parapelvic cysts are seen in the left kidney the largest measures 2.5 cm. Electronically Signed: Macario Gonzales at 2:53 EDT Tel , Service support , Abdomen/Pelvis CT 01/04/19 18:11 IMPRESSION: Left lower lung infiltrate or edema. Stable cysts in the liver and left kidney. No dilated loops of bowel. Electronically Signed: Yovani Gilbert MD at 19:18 EDT , Service support , Chest X-Ray 01/04/19 18:11 IMPRESSION: Multifocal pneumonia. Most prominent in the left mid and lower lung. at 3796 Reported and signed by: Gareth Verdin MD Electronically Signed: Gareth Verdin, at 22:45 EDT Tel , Service support , Chest X-Ray 01/06/19 05:55 IMPRESSION: Since prior study, there is been improvement in aeration of the bilateral patchy infiltrates more prominent on the left side. Electronically Signed: Karson Jolene, at 14:58 EDT , Service support , Laboratory Results - last 24 hr 01/06/19 01/06/19 05:08 05:08 WBC 9.9 RBC 3.95 L Hgb 12.0 Hct 36.8 L MCV 93.2 MCH 30.4 MCHC 32.6 RDW 13.0 RDW Differential 43.2 Plt Count 208 MPV 10.4 Immature Gran % (Auto) 0.200 Neut % (Auto) 71.4 H Lymph % (Auto) 19.8 [place] % (Auto) 6.6 Eos % (Auto) 1.7 Baso % (Auto) 0.3 Absolute Neuts (auto) 7.1 Absolute Lymphs (auto) 1.96 Total Counted Not Reportable Sodium 142 Potassium 3.7 Chloride 110 H Carbon Dioxide 27.0 Anion Gap 5 BUN 7 Creatinine 0.72 Estim Creat Clear Calc 43.92 Est GFR (MDRD) Af Amer 103 Est GFR (MDRD) Non-Af 85 BUN/Creatinine Ratio 9.7 L Glucose 95 Calcium 7.9 L Microbiology 01/02/19 09:17 Stool Enteric Bacteriology - Final - negative 01/02/19 09:17 Stool Stool Lactoferrin - Final - negative Blood Cultures - no growth in 48H, final is pending Dr. Tian Chisholm - general surgery Operations: None Procedures: Colonoscopy - Impressions : - The entire examined colon is normal on direct and retroflexion views. - No specimens collected. Summary of Care Provided: The patient is a 68-year-old female with a past medical history of breast cancer, bilateral carpal tunnel syndrome, coronary artery disease, hyperlipidemia, osteoarthritis, osteopenia, radiculopathy lower extremity and hypertension who presented to the emergency department at [facility] on 12/31/2018 complaining of left lower quadrant abdominal pain and loose stools. The CT scan of the abdomen and pelvis showed no acute findings but did show persistent multiple hepatic cysts, elevation of the right hemidiaphragm, moderate aortoiliac atherosclerotic plaquing and a small hiatal hernia. White blood cell count was normal at 7.5 with an unremarkable differential. CMP was normal. UA had no evidence of infection. Enteric pathogen panel was negative. Fecal leukocytes were negative. Dr. Chisholm was consulted for his opinion on the etiology of the left lower quadrant abdominal pain. Colonoscopy was performed on 01/04/2019. The entire colon was examined on direct and retroflexion views and was normal. After returning from colonoscopy she began experiencing shaking chills and then later had a fever. A stat CT scan of the abdomen and pelvis was obtained to rule out perforation. There was no evidence of free air in the abdomen and no evidence of perforation. There was left lower lung infiltrate present. The white blood cell count was elevated at 13.8 with a left shift. She was diagnosed with probable aspiration pneumonia and started on Zosyn. After a few days of Zosyn she was afebrile with stable vital signs and she was 98 100% saturated on room air. On 411 the white blood cell count was 9.9 with an unremarkable differential. Hemoglobin was stable. She was transitioned to Augmentin 875 mg every 12 hours which she will continue for 7 days post discharge. She will follow-up with Dr. Jadiel Beebe in 1 week. GENERAL: alert, oriented X 3, Cooperative, NAD ORAL: moist mucosa, no mucosal lesions, hoarse voice NECK: No JVD, supple, trachea midline LUNGS: No wheezes, few coarse crackles in the left base only. No conversational dyspnea, not tachypneic, no accessory muscle use. HEART: RRR, Normal S1 and S2, no rub, no gallop ABDOMEN: soft, NT, ND, BS present, no guarding with palpation EXTREMITIES: no edema, no cyanosis, no calf tenderness SKIN: No rashes, no breakdown NEUROLOGIC: no focal neurologic deficits PSYCH: appropriate, normal affect, pleasant This note was generated with [employer] dictation software. It may contain incorrect words, spelling, and punctuation that were not noted in checking the note before signing. - Physical Exam Vital Signs Temp Pulse Resp BP Pulse Ox 98.6 F 78 18 151/65 H 98 01/06/19 14:13 01/06/19 14:13 01/06/19 14:13 01/06/19 14:13 01/06/19 14:13 Oxygen Delivery Method Room Air Weight: 194 lb 14.218 oz Body Mass Index (BMI) 34.5 Intake and Output for Last 24 Hours 01/04/19 01/05/19 01/06/19 23:59 23:59 23:59 Intake Total 3588 / 3588 1402 / 1402 785 / 785 Output Total 250 / 250 Balance 3338 / 3338 1402 / 1402 785 / 785 Laboratory Tests Past 24 Hrs 01/06/19 01/06/19 05:08 05:08 WBC 9.9 RBC 3.95 L Hgb 12.0 Hct 36.8 L MCV 93.2 MCH 30.4 MCHC 32.6 RDW 13.0 RDW Differential 43.2 Plt Count 208 MPV 10.4 Immature Gran % (Auto) 0.200 Neut % (Auto) 71.4 H Lymph % (Auto) 19.8 [place] % (Auto) 6.6 Eos % (Auto) 1.7 Baso % (Auto) 0.3 Absolute Neuts (auto) 7.1 Absolute Lymphs (auto) 1.96 Total Counted Not Reportable Sodium 142 Potassium 3.7 Chloride 110 H Carbon Dioxide 27.0 Anion Gap 5 BUN 7 Creatinine 0.72 Estim Creat Clear Calc 43.92 Est GFR (MDRD) Af Amer 103 Est GFR (MDRD) Non-Af 85 BUN/Creatinine Ratio 9.7 L Glucose 95 Calcium 7.9 L Discharge Activity: - - You will feel more tired than usual. Over the next 1-2 weeks you should get plenty of rest. Try and ambulate a few times during the day to keep your joints from stiffening. Continue to use the incentive spirometer for 10 breaths every hour while awake. Call your doctor if you observe: Fever of 101 or Higher, Shortness of breath, Dizziness, Fainting spells, Chest pain, Calf discomfort, - - Call your PCP if severe diarrhea ( > 5 stools a day), painful sores in the mouth, painful swallowing, rash or itching. Taking a probiotic such as Lactobacillus or Kefir can help with loose stools while taking antibiotics. Home Medications: Medications to take at Discharge Amlodipine [Norvasc] 5 mg PO DAILY 09/30/13 Atorvastatin Calcium [Lipitor] 20 mg PO QHS 09/30/13 Lisinopril [Zestril] 20 mg PO DAILY 09/30/13 Amox/Clavulanate Tablet [Augmentin Tablet] 875 mg PO Q12H #14 tablet 01/06/19 Guaifenesin [Mucinex] 600 mg PO BID #20 tab.er.12h 01/06/19 Polyethylene Glycol 3350 [Miralax] 17 gm PO DAILY packet 01/06/19 Following Prescrptions Were Given to Patient: Amox/Clavulanate Tablet [Augmentin Tablet] 875 mg PO Q12H #14 tablet Guaifenesin [Mucinex] 600 mg PO BID #20 tab.er.12h Primary Care Physician: Jadiel Beebe MD [Primary Care Provider] - Please follow up with your Primary Care Physician in: next week Patient Instructions: Amoxicillin Trihydrate, Clavulanate Potassium Oral tablet, extended-release Disposition: Home Minutes spent on discharge:: 30 Patient Condition:: Good Medical Necessity - Tobacco Use Smoking Status: Former smoker Tobacco Use: Non-smoker Meaningful Use Info Meaningful Use Diagnoses (Choose all that apply): None applicable Code Visit Inpatient E&M: 46537 Disch Hosp
--- NOTE | 2019-01-07 11:06 | CASEMGMT ---
ME[facility]AN CM DC PHONE CALL DC DATE: 01/06/19 DC Disposition: Home LACE/STRATA: 08/31 No answer via phone, no message machine. Bill TORON RN ACM
== END 2019-01-06 16:51 | disposition home or self-care (01) | DRG 391 ==
LOC: ED 18:14 → MS3 21:12
PROVIDERS: Family Medicine; Surgery; Admitting Provider Hospitalist; Emergency Provider Emergency Medicine; Family Provider Family Medicine; PCP Family Medicine; Visit Provider Internal Medicine
PROC: 0DJD8ZZ Inspection of Lower Intestinal Tract, Via Natural or Artificial Opening Endoscopic (ICD-10-PCS; CPT 45378; principal; 2019-01-04 10:55)
DX: R10.32 Left lower quadrant pain (principal); J69.0 Pneumonitis due to inhalation of food and vomit; I10 Essential (primary) hypertension; E78.5 Hyperlipidemia, unspecified; K57.90 Diverticulosis of intestine, part unspecified, without perforation or abscess without bleeding; Z87.891 Personal history of nicotine dependence; Z85.3 Personal history of malignant neoplasm of breast
CPT/HCPCS: 36415; 71046; 74018; 74176; 74177; 80048; 80053; 81001; 83605; 83630; 85025; 87040; 87506; 99284; J7030; J7040; Q9967; A4216; J0744; J2405

== ENCOUNTER → 2019-02-14 10:51 | Outpatient (CLI) | payer MEDICARE, OTHER, SELFPAY ==
[2018-12-31 21:50] VITALS: BMI 34.5
--- NOTE | 2019-02-14 10:55 | BI_ITS ---
MAMMOGRAPHY - BILATERAL SCREENING REASON FOR EXAM: Female, 68 years old. Routine annual screening examination. PERTINENT HISTORY: Personal history of breast cancer. Prior right lumpectomy with radiation treatment. Mother with breast cancer. TECHNIQUE: Digital bilateral breast zayra (3D mammographic acquisition) in the CC and MLO projections. 2-D mediolateral oblique (MLO) and craniocaudad (CC) views of both breasts were obtained. CAD: Full Field Digital Mammography with Computer Added Detection was performed. COMPARISON: Comparison is made with prior examination dated February 02, 2017 and February 08, 2018. FINDINGS: Breast Composition: The breasts are heterogeneously dense, which may obscure small masses. There are no dominant masses or suspicious calcifications. Once again, the patient is status post right lumpectomy with resultant architectural distortion and decreased size of the right breast. No new mass lesion or cluster microcalcifications present. No other significant abnormalities are identified. There has been no significant change since the prior study. BI/SCREENING MAMM (CAD), BILAT IMPRESSION: Stable bilateral screening mammogram. Yearly follow-up mammogram recommended. (A) ASSESSMENT CATEGORY: BIRADS Category 2: Benign. A letter regarding these results will be sent to the patient by the facility within 30 days. Approximately 10% of breast cancers are not detected by mammography. A normal mammogram should not delay biopsy of a clinically suspicious abnormality. [id number] Electronically Signed: Karson Fernández, at 13:35 EDT , Service support ,
== END ==
PROVIDERS: Family Provider Family Medicine; PCP Family Medicine; Referring Provider Internal Medicine Medical Oncology; Visit Provider Internal Medicine Medical Oncology
DX: Z12.31 Encounter for screening mammogram for malignant neoplasm of breast (principal); Z85.3 Personal history of malignant neoplasm of breast; Z80.3 Family history of malignant neoplasm of breast
CPT/HCPCS: 77063; 77067

== ENCOUNTER → 2020-02-16 10:28 | Outpatient (CLI) | payer MEDICARE, SELFPAY ==
[2019-03-07 14:21] VITALS: BMI 34.4
--- NOTE | 2020-02-16 10:30 | BI_ITS ---
MAMMOGRAPHY - BILATERAL SCREENING REASON FOR EXAM: Female, 69 years old. Routine annual screening examination. PERTINENT HISTORY: Personal history of breast cancer. Prior right lumpectomy''s with radiation treatment. TECHNIQUE: Digital bilateral breast adi (3D mammographic acquisition) in the CC and MLO projections. 2-D mediolateral oblique (MLO) and craniocaudad (CC) views of both breasts were obtained. CAD: Full Field Digital Mammography with Computer Added Detection was performed. COMPARISON: Comparison is made with prior examination dated February 14, 2019 and February 08, 2018. FINDINGS: Breast Composition: The breasts are heterogeneously dense, which may obscure small masses. There are no dominant masses or suspicious calcifications. Once again, the patient is status post lumpectomy in the deep upper lateral portion of the right breast with resultant architectural distortion and skin thickening. This is unchanged. No other significant abnormalities are identified. There has been no significant change since the prior study. BI/SCREEN MAMM (CAD) W/ADI BILAT IMPRESSION: Stable bilateral screening mammogram. Yearly follow-up mammogram recommended. (A) ASSESSMENT CATEGORY: BIRADS Category 2: Benign. A letter regarding these results will be sent to the patient by the facility within 30 days. Approximately 10% of breast cancers are not detected by mammography. A normal mammogram should not delay biopsy of a clinically suspicious abnormality. [id number] Electronically Signed: Karson Fernández, at 10:31 EDT , Service support ,
== END ==
PROVIDERS: PCP Family Medicine; Referring Provider Internal Medicine Hematology & Oncology; Visit Provider Internal Medicine Hematology & Oncology
DX: Z12.31 Encounter for screening mammogram for malignant neoplasm of breast (principal); Z85.3 Personal history of malignant neoplasm of breast
CPT/HCPCS: 77063; 77067

== ENCOUNTER → 2020-03-19 10:36 | Outpatient (CLI) | payer MEDICARE, SELFPAY ==
[2020-03-08 14:29] VITALS: BMI 37.3
--- NOTE | 2020-03-19 10:41 | RAD_ITS ---
STUDY: X-RAY - LEFT CALCANEUS REASON FOR EXAM: Female, 69 years old. HEEL PAIN x2 MONTHS, NKI TECHNIQUE: 2 view(s) of the calcaneus were obtained. COMPARISON: None. FINDINGS: Normal visualized calcaneus. There is enthesophyte formation of the posterior superior calcaneus at the site of insertion of the Achilles tendon. There is a plantar calcaneal spur. RAD/Calcaneus min 2 Views IMPRESSION: Calcaneal spurs, no demonstrated fracture or suspicious osseous lesion Electronically Signed: Derik Chowdary MD at 11:40 EDT , Service support ,
[2020-03-19 12:47] LABS: Cholesterol 184 mg/dL (200); High Density Lipoprotein 62 mg/dL; Triglycerides 121 mg/dL; Very Low Density Lipoprotein 24 mg/dL (5-40)
== END ==
PROVIDERS: PCP Family Medicine; Referring Provider Family Medicine; Visit Provider Family Medicine
DX: M79.672 Pain in left foot (principal); E78.5 Hyperlipidemia, unspecified
CPT/HCPCS: 36415; 73650; 80061

== ENCOUNTER → 2020-09-17 10:07 | Outpatient (CLI) | payer MEDICARE, SELFPAY ==
[2020-03-08 14:29] VITALS: BMI 37.3
[2020-09-17 12:51] LABS: Anion Gap 5 (5-15); BUN 9 mg/dL (7-18); BUN/Creat Ratio 11.3 RATIO (10-20); Calcium,Total 8.9 mg/dL (8.5-10.1); Chloride 107 mmol/L (98-107); Cholesterol 185 mg/dL (200); EST Glomerular Filtration Rate 75 mL/min (>60); Est Glom Filt Rate - Afr Amer 91 mL/min (>60); Glucose 105 mg/dL (74-106); High Density Lipoprotein 58 mg/dL; Potassium 3.8 mmol/L (3.5-5.1); Sodium Level 139 mmol/L (136-145); Triglycerides 107 mg/dL; Very Low Density Lipoprotein 21 mg/dL (5-40)
== END ==
PROVIDERS: PCP Family Medicine; Referring Provider Family Medicine; Visit Provider Family Medicine
DX: I10 Essential (primary) hypertension (principal)
CPT/HCPCS: 36415; 80048; 80061

== ENCOUNTER → 2021-03-05 11:20 | Outpatient (CLI) | payer MEDICARE, SELFPAY ==
[2020-03-08 14:29] VITALS: BMI 37.3
--- NOTE | 2021-03-05 11:23 | BI_ITS ---
MAMMOGRAPHY - BILATERAL SCREENING REASON FOR EXAM: Female, 70 years old. Routine annual screening examination. PERTINENT HISTORY: Personal history of breast cancer. Prior right lumpectomy and radiation treatment. Mother with breast cancer. TECHNIQUE: Digital bilateral breast adi (3D mammographic acquisition) in the CC and MLO projections. 2-D mediolateral oblique (MLO) and craniocaudad (CC) views of both breasts were obtained. CAD: Full Field Digital Mammography with Computer Added Detection was performed. COMPARISON: Comparison is made with prior study dated 02/16/2020 and 02/14/2019 FINDINGS: Breast Composition: The breasts are heterogeneously dense, which may obscure small masses. There are no dominant masses or suspicious calcifications. The patient is status post lumpectomy in the deep upper lateral aspect of the right breast with resultant architectural distortion and calcification. A tissue clip marker is seen at that site as well. Stable benign-appearing bilateral axillary lymph nodes. No other significant abnormalities are identified. There has been no significant change since the prior study. BI/SCRN MAMM (CAD)W/ADI BILAT IMPRESSION: Stable bilateral screening mammogram. Yearly follow-up mammogram recommended. (A) ASSESSMENT CATEGORY: BIRADS Category 2: Benign. A letter regarding these results will be sent to the patient by the facility within 30 days. Approximately 10% of breast cancers are not detected by mammography. A normal mammogram should not delay biopsy of a clinically suspicious abnormality. [id number] Electronically Signed: Karson Fernández MD at 12:14 EDT , Service support ,
== END ==
PROVIDERS: PCP Family Medicine; Referring Provider Internal Medicine Hematology & Oncology; Visit Provider Internal Medicine Hematology & Oncology
DX: Z12.31 Encounter for screening mammogram for malignant neoplasm of breast (principal); Z85.3 Personal history of malignant neoplasm of breast
CPT/HCPCS: 77063; 77067

== ENCOUNTER → 2021-03-14 13:50 | Outpatient (CLI) | payer MEDICARE, SELFPAY ==
[2021-03-11 14:34] VITALS: BMI 36.9
--- NOTE | 2021-03-14 13:58 | BD_ITS ---
STUDY: DUAL ENERGY X-RAY ABSORPTIOMETRY / DXA REASON FOR EXAM: Female, 70 years old. OSTEOPENIA TECHNIQUE: Bone Mineral Density (BMD) measurements of lumbar spine and bilateral hips were obtained. COMPARISON: Comparison is made with prior study dated 04/15/2017. FINDINGS: Lumbar Spine (L1-L4): g/cm2 (0.944) / T-score (-1.8) / Z-score (-0.2) Findings are suggestive of osteopenia with a moderate fracture risk. Left Femur Total: g/cm2 (0.835) / T-score (-1.4) / Z-score (0.2) Left Femoral Neck: g/cm2 (0.684) / T-score (-2.5) / Z-score (-0.8) Right Femur Total: g/cm2 (0.824) / T-score (-1.5) / Z-score (0.1) Right Femoral Neck: g/cm2 (0.710) / T-score (-2.4) / Z-score (-0.6) The T-Scores on the most recent prior examination were: Lumbar Spine (L1-L4): There has been improvement of bone density since the previous examination. Left Femur Total: which represents a worsening of 1.9%. Right Femur Total: which represents a worsening of 2.3%. BD/Dexa Bone Density Study IMPRESSION: The patient is considered osteopenic as outlined below according to World Pete Organization (WHO) criteria with a high fracture risk. There has been worsening of bone density since the previous examination. Reference Information: The T-score is the number of standard deviations above or below the standard which is normal for young adults at their peak bone mineral density. The World Health Organization (WHO) interprets the T-scores as follows: Above -1 Normal bone density Between -1 and -2.5 Osteopenia Equal to / or below -2.5 Osteoporosis As a practical clinical guideline, osteopenia may be graded as follows: Mild -1 through -1.5 Moderate -1.6 through -2.0 Severe -2.1 through -2.4 The Z-score is the number of standard deviations above or below age-matched controls. A Z-score of less than -1.5 would be considered abnormal. References: 1. NIH Osteoporosis and Related Bone Diseases www osteo.org 2. International Society for Clinical Densitometry www iscd.org 3. National Osteoporosis Foundation www nof.org Electronically Signed: Karson Fernández MD at 15:53 EDT , Service support ,
== END ==
PROVIDERS: PCP Family Medicine; Referring Provider Internal Medicine Hematology & Oncology; Visit Provider Internal Medicine Hematology & Oncology
DX: M85.89 Other specified disorders of bone density and structure, multiple sites (principal)
CPT/HCPCS: 77080

== ENCOUNTER → 2021-03-18 10:06 | Outpatient (CLI) | payer MEDICARE, SELFPAY ==
[2021-03-11 14:34] VITALS: BMI 36.9
[2021-03-18 12:46] LABS: Cholesterol 174 mg/dL (200); High Density Lipoprotein 62 mg/dL; Triglycerides 88 mg/dL; Very Low Density Lipoprotein 18 mg/dL (5-40)
== END ==
PROVIDERS: PCP Family Medicine; Visit Provider Family Medicine
DX: I10 Essential (primary) hypertension (principal)
CPT/HCPCS: 36415; 80061

== ENCOUNTER → 2021-09-16 10:07 | Outpatient (CLI) | payer MEDICARE, SELFPAY ==
[2021-09-16 12:21] LABS: Anion Gap 6 (5-15); BUN 7 mg/dL (7-18); BUN/Creat Ratio 8.8 RATIO (10-20); Calcium,Total 8.7 mg/dL (8.5-10.1); Chloride 104 mmol/L (98-107); Cholesterol 162 mg/dL (200); Creatinine, Serum 0.79 mg/dL (0.55-1.02); EST Glomerular Filtration Rate 76 mL/min (>60); Est Glom Filt Rate - Afr Amer 92 mL/min (>60); Glucose 101 mg/dL (74-106); High Density Lipoprotein 60 mg/dL; Potassium 3.9 mmol/L (3.5-5.1); Sodium Level 139 mmol/L (136-145); Triglycerides 121 mg/dL; Very Low Density Lipoprotein 24 mg/dL (5-40)
== END ==
PROVIDERS: PCP Family Medicine; Visit Provider Family Medicine
DX: E78.5 Hyperlipidemia, unspecified (principal)
CPT/HCPCS: 36415; 80048; 80061

== ENCOUNTER 2021-12-25 10:40 | Outpatient (CLI) | payer MEDICARE, SELFPAY ==
--- NOTE | 2021-12-25 10:44 | RAD_ITS ---
STUDY: XR Wrist Min 3 Views REASON FOR EXAM: Female, 71 years old. PAIN TECHNIQUE: XR Wrist Min 3 Views RIGHT COMPARISON: None FINDINGS: There are no acute findings of the visualized distal radius and ulna. There is degenerative arthrosis of the radiocarpal articulation. Normal distal radioulnar articulation. Normal carpal bones. Normal carpal articulations. There are no acute findings of the carpometacarpal articulation of the thumb. Normal second through fifth carpometacarpal articulations. There are no acute findings of the visualized metacarpal bones. The soft tissue structures are unremarkable. RAD/Wrist min 3 Views IMPRESSION: There is degenerative arthrosis of the radiocarpal articulation. Electronically Signed: Francisco Jauregui MD at 17:26 EDT ,
== END 2021-12-25 23:59 | disposition home or self-care (01) ==
LOC: MTRAD 10:42
PROVIDERS: PCP Family Medicine; Referring Provider Family Medicine; Visit Provider Family Medicine
DX: M25.539 Pain in unspecified wrist (principal)
CPT/HCPCS: 73110

== ENCOUNTER → 2022-03-06 | Outpatient (CLI) | payer MEDICARE, SELFPAY ==
--- NOTE | 2022-03-06 10:14 | BI_ITS ---
MAMMOGRAPHY - BILATERAL SCREENING REASON FOR EXAM: Female, 71 years old. Routine annual screening examination. PERTINENT HISTORY: Personal history of breast cancer. Prior left lumpectomy and radiation. Mother with breast cancer. TECHNIQUE: Digital bilateral breast adi (3D mammographic acquisition) in the CC and MLO projections. 2-D mediolateral oblique (MLO) and craniocaudad (CC) views of both breasts were obtained. CAD: Full Field Digital Mammography with Computer Added Detection was performed. COMPARISON: Comparison is made with prior study dated 03/05/2021 and 02/16/2020. FINDINGS: Breast Composition: The breasts are heterogeneously dense, which may obscure small masses. There are no dominant masses or suspicious calcifications. The patient is status post lumpectomy in the deep superior lateral aspect of the right breast with resultant varus deformity and postoperative scarring at the operative site. No other significant abnormalities are identified. There has been no significant change since the prior study. BI/SCRN MAMM (CAD)W/ADI BILAT IMPRESSION: Stable bilateral screening mammogram. Yearly follow-up mammogram recommended. (A) ASSESSMENT CATEGORY: BIRADS Category 2: Benign. A letter regarding these results will be sent to the patient by the facility within 30 days. Approximately 10% of breast cancers are not detected by mammography. A normal mammogram should not delay biopsy of a clinically suspicious abnormality. [id number] Electronically Signed: Karson Fernández MD at 12:08 EDT ,
== END | disposition home or self-care (01) ==
LOC: OPBI 10:13
PROVIDERS: PCP Family Medicine; Referring Provider Internal Medicine Hematology & Oncology; Visit Provider Internal Medicine Hematology & Oncology
DX: Z12.31 Encounter for screening mammogram for malignant neoplasm of breast (principal)
CPT/HCPCS: 77063; 77067

== ENCOUNTER → 2022-03-17 | Outpatient (CLI) | payer MEDICARE, SELFPAY ==
[2022-03-17 12:46] LABS: Absolute Lymphocyte Count 1.61 X10^3/uL (0.83-4.51); Absolute Neutrophil Count 4.7 X10^3/uL (2.0-7.7); Basophil# 0.06 X10^3/uL; Basophil% 0.9 % (0-1); Eosinophil# 0.04 X10^3/uL; Eosinophils% 0.6 % (0-5); Hematocrit 44.4 % (37-47); Hemoglobin 14.5 g/dL (12.0-15.0); Lymphocyte # 1.61 X10^3/ul (0.83-4.51); Mean Corp Hgb Conc 32.7 g/dL (32-36); Mean Corpuscular Hgb 30.5 pg (27.0-32.0); Mean Corpuscular Volume 93.3 fL (81-99); Mean Platelet Vol. 10.7 fl (6.2-12.0); Monocyte# 0.54 X10^3/uL; Monocyte% 7.7 % (0-10); NRBC Flagged by Analyzer 0 % (0-5); Neutrophil # 4.72 X10^3/uL (2.7-7.7); Neutrophil % 67.5 % (47-70); Platelet Count 292 K/mm3 (150-450); RBC Distribution Width CV 12.9 % (11.6-14.6); RBC Distribution Width SD 44.2 fl (35.1-43.9); Red Blood Count 4.76 M/mm3 (4.2-5.4)
[2022-03-17 12:48] LABS: AST(SGOT) 22 U/L (15-37); Alanine Aminotransfer ALT/SGPT 31 U/L (13-56); Albumin, Serum 3.6 g/dL (3.2-5.0); Alkaline Phosphatase 106 U/L (45-117); Anion Gap 5 (5-15); BUN 10 mg/dL (7-18); BUN/Creat Ratio 12.7 RATIO (10-20); Calcium,Total 9.1 mg/dL (8.5-10.1); Chloride 106 mmol/L (98-107); Creatinine, Serum 0.78 mg/dL (0.55-1.02); EST Glomerular Filtration Rate 77 mL/min (>60); Est Glom Filt Rate - Afr Amer 93 mL/min (>60); Globulin 3.7 g/dL (2.2-4.2); Glucose 109 mg/dL (74-106); Potassium 3.8 mmol/L (3.5-5.1); Protein, Total 7.3 g/dL (6.4-8.2); Sodium Level 139 mmol/L (136-145)
[2022-03-20 13:34] LABS: Cholesterol 178 mg/dL (200); High Density Lipoprotein 60 mg/dL; Triglycerides 110 mg/dL; Very Low Density Lipoprotein 22 mg/dL (5-40)
== END | disposition home or self-care (01) ==
LOC: MFPLAB 10:47
PROVIDERS: Internal Medicine Hematology & Oncology; PCP Family Medicine; Visit Provider Family Medicine
DX: E78.5 Hyperlipidemia, unspecified (principal); I10 Essential (primary) hypertension
CPT/HCPCS: 36415; 80053; 80061; 85025

== ENCOUNTER 2022-06-23 18:47 | Emergency (ER) | payer MEDICARE, SELFPAY ==
[2022-06-23 18:50] VITALS: PULSE 104; RESP 17; TEMP 36.4; O2SAT 99; BMI 36.6
[2022-06-23 18:58] VITALS: BP 175/97
--- NOTE | 2022-06-23 19:06 | EKG12_ITS ---
Test Reason : CP Blood Pressure : / mmHG Vent. Rate : 097 BPM Atrial Rate : 097 BPM P-R Int : 156 ms QRS Dur : 082 ms QT Int : 354 ms P-R-T Axes : 049 018 058 degrees QTc Int : 449 ms Sinus rhythm with Premature atrial complexes Possible Left atrial enlargement Nonspecific ST and T wave abnormality Abnormal ECG Confirmed by BENSON THOMAS, MYCHAL ([id number]), fan mail editor STEVE BETANCOURT ([id number]) on 06/24/2022 1:20:07 PM Referred By: CAMRON Confirmed By:MYCHAL KNOWLES MD
--- NOTE | 2022-06-23 19:07 | EDS_ITS ---
HPI History of Present Illness Chief Complaint: Chest Pain Narrative Narrative: Patient with past medical history of remote breast carcinoma presents with left- sided chest pain that she is actually had since Thursday last week, 6 days ago after a fall. She states she was gardening and weeding and fell onto her left side she had to have her neighbor help her up. She now presents with left pectoral into her shoulder pain that worsened this morning. She took Tylenol at 10:00 in the morning which relieved some of her pain but it has gotten vastly worse. She denies any nausea or vomiting. No shortness of breath or diaphoresis. No other injury from her fall. No fevers or chills, no cough or other symptoms. Pain is worse with movement. She states she feels tight in her left pectoral area. No alleviating factors. [facility] Medical History Breast cancer Carpal tunnel syndrome on both sides Heart disease Hyperlipidemia Hypertension Osteoarthritis Osteopenia Radiculopathy of leg Home Medications atorvastatin 20 mg tablet 20 mg PO QHS cholesterol 09/30/13 [History Last Taken 12/30/18] lisinopril 20 mg tablet 20 mg PO DAILY bp 09/30/13 [History Last Taken 12/31/18] amlodipine 5 mg tablet 10 mg PO DAILY bp 03/24/22 [History Last Taken Unknown] wheat dextrin 3 gram/3.5 gram oral powder packet (Benefiber Clear Sugar Free(dextrin)) 1 packet PO DAILY 03/24/22 [History Last Taken Unknown] Allergy/AdvReac Type Severity Reaction Status Date / Time fexofenadine HCl AdvReac unsure Verified 06/23/22 19:11 [From Peggy-D 12 Hour] nitrofurantoin AdvReac Rash Verified 06/23/22 19:11 [From Macrobid] nitrofurantoin AdvReac Rash Verified 06/23/22 19:11 macrocrystalline [From Macrobid] oxycodone HCl AdvReac Nausea Verified 06/23/22 19:11 [From OxyContin] pseudoephedrine HCl AdvReac unsure Verified 06/23/22 19:11 [From Peggy-D 12 Hour] Tetracyclines AdvReac causes Verified 06/23/22 19:11 yeast infection Family History Father Heart disease Mother Diabetes Breast cancer Heart disease Surgical History H/O dilation and curettage History of lumpectomy of right breast History of partial knee replacement Social History Smoking Status: Former smoker Tobacco: How many years used: 1 second hand exposure: No alcohol intake: never substance use type: does not use ROS ROS ED ROS Narrative Constitutional: No fever, no chills. HEENT: No sore throat. No neck pain. No loss of vision. No rhinorrhea. Cardiovascular: Left pectoral chest pain. No palpitations. No pedal edema. Respiratory: No cough, no shortness of breath. Abdominal: No abdominal pain. No nausea. No vomiting. Genitourinary: No dysuria. No hematuria. Musculoskeletal: No myalgias. No arthralgias. Neurologic: No headaches. No dizziness. No lightheadedness. Skin: No rash. No change in color. Psychiatric: No depression. No anxiety. EXAM Physical Exam Narrative Exam Narrative: Afebrile. Vital signs noted. HEENT: Normocephalic. Atraumatic. PERRL, EOMI. Neck soft and supple. No point tenderness or step off. Cardiovascular: Regular rate and rhythm with intermittent tachycardia. No murmurs, rubs, or gallops appreciated. Positive tenderness to palpation left pectoral area into shoulder, no crepitance. Respiratory: No tachypnea. Lungs clear to auscultation bilaterally. Gastrointestinal: Abdomen soft, nontender, with normoactive bowel sounds. No rebound or guarding. Neurological: Awake. Alert. Nonfocal, nonlateralizing. Skin: No rash. Normal color. No pallor. Musculoskeletal: No pedal edema. Full range of motion extremities. Able to move shoulder. Neurovascular intact distally with palpable radial pulse. Const Vital Signs: 06/23/22 18:50 06/23/22 18:58 06/23/22 19:06 Temperature 97.6 F L Temperature Source Temporal Pulse Rate 104 H Respiratory Rate 17 Respiratory Effort Blood Pressure 175/97 H Blood Pressure Mean 123 Pulse Ox 99 Oxygen Delivery Method Room Air Room Air 06/23/22 19:11 06/23/22 20:29 Temperature Temperature Source Pulse Rate 93 Respiratory Rate 16 Respiratory Effort Normal Blood Pressure 174/65 H Blood Pressure Mean Pulse Ox 97 Oxygen Delivery Method Heart Score History: Slightly/Non-Suspicious ECG: Normal Age: >/= 65 years Risk Factors: 1 or 2 Risk Factors Troponin: </= Normal Limit Score: 3 MDM MDM MDM Narrative Medical decision making narrative: I do feel that she has reproducible chest wall pain, probably worsening from her initial injury on Thursday. However, since 10-15 of reproducible chest pain could be cardiac, comprehensive work-up was pursued. EKG interpreted by myself demonstrates sinus rhythm with premature atrial contractions at 97 bpm without other ectopy or acute ST changes. No STEMI. BC is grossly normal with a normal white count of 10.1, hemoglobin normal at 15.0, hematocrit 44.2. Platelet count of 299. Glucose appropriately elevated at 113 with a normal anion gap of 6. High-sensitivity troponin negative at 6, and as this is greater than a 6-hour troponin, I feel that she can be discharged with follow-up to her primary care physician. Chest x-ray and rib x-rays interpreted by myself show no evidence of an acute displaced fracture or pneumothorax. RN reported that the patient was having increasing pain. She was given a dose of morphine. When asked what she would like for home use, she states she has an allergy to oxycodone and prefers to take [id number] medications such as Tylenol and Aleve. I feel she can be discharged safely home with follow-up. I do feel that she is probably having more musculoskeletal pain. Return instructions to the emergency department were reviewed. Disposition is discharged home in stable condition. Lab Data Attestation: I reviewed the patient's lab results. Labs: Laboratory Results - last 24 hr 06/23/22 06/23/22 19:13 19:13 WBC 10.1 RBC 4.71 Hgb 15.0 Hct 44.2 MCV 93.8 MCH 31.8 MCHC 33.9 RDW Std Deviation 43.8 RDW Coeff of Cody 12.8 Plt Count 299 MPV 9.8 Immature Gran % (Auto) 0.300 Neut % (Auto) 63.3 Lymph % (Auto) 25.6 [place] % (Auto) 8.6 Eos % (Auto) 1.3 Baso % (Auto) 0.9 Absolute Neuts (auto) 6.4 Absolute Lymphs (auto) 2.57 Nucleated RBC % 0 Sodium 138 Potassium 3.7 Chloride 105 Carbon Dioxide 27.0 Anion Gap 6 BUN 9 Creatinine 0.74 Estim Creat Clear Calc 40.22 Est GFR (MDRD) Af Amer 99 Est GFR (MDRD) Non-Af 82 BUN/Creatinine Ratio 12.2 Glucose 113 H Calcium 9.5 Troponin I High Sens 6 Radiography Diagnostic Testing: Clinical Impression(s) from Imaging Studies Ribs w/Chest X-Ray 06/23/22 19:18 IMPRESSION: RIBS: No acute displaced rib fractures or pneumothorax. CHEST: No acute cardiopulmonary disease. No significant interval change. Electronically Signed: Farbia Magana MD at 20:01 EDT Reading Location ID and State: , Service support , Discharge Plan Triage Chief Complaint: Chest Pain ED Provider: Rush Velázquez Dx/Rx/DC Orders Clinical Impression: Chest wall pain, Fall, Rib pain on left side, Intercostal pain Instructions: ED Chest Pain, Uncertain Cause, ED Chest Wall Contusion, ED Chest Wall Strain Prescriptions: No Action atorvastatin 20 MG tablet 20 mg PO QHS Label Comments: CHOLESTEROL lisinopril 20 MG tablet 20 mg PO DAILY Label Comments: BLOOD PRESSURE amlodipine 5 mg tablet 10 mg PO DAILY Label Comments: BLOOD PRESSURE Benefiber Clear SF (dextrin) 3 gram/3.5 gram powder in packet 1 packet PO DAILY Primary Care Provider: Jadiel Beebe Referrals: Jadiel Beebe MD [Primary Care Provider] - 3-5 Days if not improving Disposition Disposition: Home, Self Care Discharge Date/Time: 06/23/22 21:24
--- NOTE | 2022-06-23 19:18 | RAD_ITS ---
STUDY: X-RAY - UNILATERAL RIBS ( LEFT ) WITH CHEST REASON FOR EXAM: Female, 71 years old. Chest wall Pain TECHNIQUE - RIBS: 4 view(s) of the ribs. TECHNIQUE - CHEST: Single frontal view of the chest. COMPARISON: Chest x-ray 01/06/2019 FINDINGS - RIBS: Normal visualized ribs without a demonstrated fracture. FINDINGS - CHEST: There are superimposed monitor leads. Stable elevation right hemidiaphragm. There is no demonstrated pneumothorax. There are areas of hyperinflation. There is no demonstrated pleural abnormality. Normal size heart. Normal mediastinum and ash. Normal visualized pulmonary arteries. There is atherosclerotic calcification of the aortic arch with tortuosity. There is demineralization of the osseous structures. There is degenerative osteoarthritis of the bilateral shoulders. There is no demonstrated abnormality of the visualized soft tissue structures of the upper abdomen. RAD/Ribs Uni Min 3V w/PA Chest IMPRESSION: RIBS: No acute displaced rib fractures or pneumothorax. CHEST: No acute cardiopulmonary disease. No significant interval change. Electronically Signed: Fariba Magana MD at 20:01 EDT Reading Location ID and State: , Service support ,
[2022-06-23 19:23] LABS: Absolute Lymphocyte Count 2.57 X10^3/uL (0.83-4.51); Absolute Neutrophil Count 6.4 X10^3/uL (2.0-7.7); Basophil# 0.09 X10^3/uL; Basophil% 0.9 % (0-1); Eosinophil# 0.13 X10^3/uL; Eosinophils% 1.3 % (0-5); Hematocrit 44.2 % (37-47); Lymphocyte # 2.57 X10^3/ul (0.83-4.51); Lymphocyte % 25.6 % (19-41); Mean Corp Hgb Conc 33.9 g/dL (32-36); Mean Corpuscular Hgb 31.8 pg (27.0-32.0); Mean Corpuscular Volume 93.8 fL (81-99); Mean Platelet Vol. 9.8 fl (6.2-12.0); Monocyte# 0.86 X10^3/uL; Monocyte% 8.6 % (0-10); NRBC Flagged by Analyzer 0 % (0-5); Neutrophil # 6.37 X10^3/uL (2.7-7.7); Neutrophil % 63.3 % (47-70); Platelet Count 299 K/mm3 (150-450); RBC Distribution Width CV 12.8 % (11.6-14.6); RBC Distribution Width SD 43.8 fl (35.1-43.9); Red Blood Count 4.71 M/mm3 (4.2-5.4); White Blood Count 10.1 K/mm3 (4.4-11.0)
[2022-06-23 19:43] LABS: Anion Gap 6 (5-15); BUN 9 mg/dL (7-18); BUN/Creat Ratio 12.2 RATIO (10-20); Calcium,Total 9.5 mg/dL (8.5-10.1); Chloride 105 mmol/L (98-107); Creatinine, Serum 0.74 mg/dL (0.55-1.02); EST Glomerular Filtration Rate 82 mL/min (>60); Est Glom Filt Rate - Afr Amer 99 mL/min (>60); Estimated Creatinine Clearance 40.22 ml/min; Glucose 113 mg/dL (74-106); Potassium 3.7 mmol/L (3.5-5.1); Sodium Level 138 mmol/L (136-145); Troponin-I HS 6 pg/mL (3.0-54.0)
[2022-06-23] MEDS: Morphine 4 MG/ML Syringe IV (20:15)
[2022-06-23 20:29] VITALS: BP 174/65; PULSE 93; RESP 16; O2SAT 97
== END 2022-06-23 21:24 | disposition home or self-care (01) ==
PROVIDERS: Emergency Provider Emergency Medicine; PCP Family Medicine; Visit Provider Emergency Medicine
DX: R07.89 Other chest pain (principal); R07.81 Pleurodynia; I10 Essential (primary) hypertension; E78.5 Hyperlipidemia, unspecified; Z79.899 Other long term (current) drug therapy; Z87.891 Personal history of nicotine dependence
CPT/HCPCS: 71101; 80048; 84484; 85025; 93005; 96374; 99284; A4216

== ENCOUNTER 2023-03-04 10:30 | Outpatient (RCR) | payer MEDICARE, SELFPAY ==
--- NOTE | 2023-01-22 12:18 | HP.PTEVAL_ITS ---
Patient's Visit Information JUN YOU is a 72 year old F referred to Physical Therapy by Dr. Holland Banuelos DPM with a diagnosis of R achilles tendonitis. Date of Evaluation: 01/22/23 Physical Therapist: John Infante DPT, OCS, CSCS - Visit Plan Frequency: 3x /Week Duration: 4-6 Weeks Plan: 3x/week x 4-6(start 2) for... 1. STM to gastroc soleus R and foot, stretch of gastroc soleus. 2. eccentric strength to HEP and ankle strength to HEP(next visit give home eccentrics). 3. monitor use of orthotics(pt has), heel lifts(pt may get), ice and activitiy modficaition at home. - Subjective Goes by [place]. R achilles pain, achilles tendonitis. Got inserts and arch supports at doctor and started wearing tennis shoes. R heel pain posterior. 5/10 pain worse later in day. has been there a number of months insidious onset. Doctor put on antiinflammatory. It has helped. Overall helped about 80% and can move easier. Sleep is OK, up in am is worse. Activities are slower but normal. Exercises: walking when she can and silver sneakers. Started walking a couple weeks ago and feels worse after word. Retired. Going to beach end of January and wants to walk. Lives alone. - Pain R heel Pain Intensity (Out of 10): 1 Pain Intensity Range: 0, 5 Comment: worse evening - Objective Walks without antalgia I with good balance back to PT today, transfers bed and chair I. Mod tender to touch R achilles body and insertion. Pes planus mild in B feet. AROM DF 0 R and 2 L knee straight and slightly better knee bent but painful R achiiles. Inv/ev PF WFL and without pain B. strenggth is 4 PF and 4 inv/ev/df B with only pain PF R. reflexes 2/3 patella and achilles. Sensation LE WNL to gross light touch. - Balance/Special Test Scores Lower Extremity Functional Score: 54 - Goals Goal 1:: pt i in managemnt of tendonitis Goal Time Frame: 2-4 Weeks Goal 2:: Patient feel 95% better overall and 1/10 pain at worst. Goal Time Frame: 4-6 Weeks Goal 3:: Pt able to start walking for fitness and silver sneakers class I Goal Time Frame: 4-6 Weeks Goal 4:: LEFS score 65 Goal Time Frame: 4-6 Weeks - Rehabilitation Potential Physical Therapy Diagnosis: R achilles tendonitis pain effecting function Rehabilitation Potential: Good - Anticipated Interventions Patient/Client Instruction: Educate patient on: Condition, Plan of Care For the Purpose of:: To decrease pain, To increase ROM, To improve nutrient delivery to tissue, To improve muscle performance and motor function Therapeutic Exercise to Include: Strength training, Flexibilty training, Passive ROM, Active ROM For the Purpose of:: To decrease pain, To decrease swelling/inflammation, To increase ROM, To improve nutrient delivery to tissue, To increase tolerance to activity/condition/position Manual Therapy Techniques to Include: Mobilization, Passive ROM, Soft tissue mobilization For the Purpose of:: To decrease pain, To increase ROM, To improve muscle performance and motor function, To increase tolerance to activity/condition/pos ition, To improve gait and locomotor functions Comment: heellift For the Purpose of:: To decrease swelling/inflammation Thank you for the opportunity to evaluate your patient. For Medicare and Medicare HMO plans, please review the plan of care and approve it. It will need to be FAXED BACK to us at [phone] for Medicare purposes. For Medicare only, by signing this I certify the plan of care. Please let me know if there are questions or concerns regarding this plan of care. Physician Signature: Date:
--- NOTE | 2023-02-06 12:25 | HP.PTREVAL ---
Dr. Holland Banuelos, DPM, It has been my pleasure to treat JUN YOU over the last 7 visits for R achilles tendonitis. Please see the progress note below for an update on the physical therapy plan of care! Subjective: Still hurts at end of day to 6, 2/10 middle of day. has been using ice, no more antiinflammatories. To next . Managing it better than a onth ago. Doing exercises at home. pain overall is better. Activities are normal but slow and take a break. Objective/Function: Good AROM to 4 DF B, power press tender mildly on R achilles near insert. Walks slow but with good push off and down steps utilizin R forefoot. Improving Plan Plan: f/u in 3 weeks after her vacation to ensure progress., to doctor next week for other steps if desired. Call prior if worsens , consider 2 more weeks if not improved next session. Balance/Gait/Functional tests - Balance/Special Test Scores Lower Extremity Functional Score: 63 Goals Goal 1:: pt i in managemnt of tendonitis Goal Time Frame: 2-4 Weeks Goal Progress: Goal Met Goal 2:: Patient feel 95% better overall and 1/10 pain at worst. Goal Time Frame: 4-6 Weeks Goal Progress: 80% Goal 3:: Pt able to start walking for fitness and silver sneakers class I Goal Time Frame: 4-6 Weeks Goal Progress: Progressing Goal 4:: LEFS score 65 Goal Time Frame: 4-6 Weeks Goal Progress: Goal Met Anticipated Interventions Patient/Client Instruction: Educate patient on: Condition, Plan of Care For the Purpose of:: To decrease pain, To increase ROM, To improve nutrient delivery to tissue, To improve muscle performance and motor function Therapeutic Exercise to Include: Strength training, Flexibilty training, Passive ROM, Active ROM For the Purpose of:: To decrease pain, To decrease swelling/inflammation, To increase ROM, To improve nutrient delivery to tissue, To increase tolerance to activity/condition/position Manual Therapy Techniques to Include: Mobilization, Passive ROM, Soft tissue mobilization For the Purpose of:: To decrease pain, To increase ROM, To improve muscle performance and motor function, To increase tolerance to activity/condition/position, To improve gait and locomotor functions Comment: heellift For the Purpose of:: To decrease swelling/inflammation Please do not hesitate to contact me at [phone] by phone or if you have questions or concerns regarding this new plan of care! Sincerely, John Infante, DPT, OCS, CSCS
--- NOTE | 2023-03-04 10:49 | HP.PTDCSUM_ITS ---
It has been my pleasure to treat JUN YOU referred by Dr. Holland Banuelos DPM, with the diagnosis of R achilles tendonitis for a total of 8 visit(s). Discharge Date: 03/04/23 Please see the following information for a summary of their discharge status. Subjective: Walked on beach alot and felt it. Only had to ice it once. Hurt a little coming home as they took few breaks. Worked in garden the other day. Has taken heel lifts out but still wearing insoles. Has anti inflammatory but only needed it 3x in last couple weeks. Pain was up to 8/10 when she got it but better with ice and management stretches. Saw doctor and surgery is an option but she does not want that. Has walked for fitness but not silver sneakers. R heel Pain Intensity (Out of 10): 0 % Improvement: 80 Objective/Function: FullaROM to 4 degrees DF. Slight tenderness R achilles. Walking well without antalgia. Overall manaing it very well and willing to continue on own. Goal 1:: pt i in managemnt of tendonitis Goal Progress: Goal Met Goal 2:: Patient feel 95% better overall and 1/10 pain at worst. Goal Progress: 80% Goal 3:: Pt able to start walking for fitness and [employer] class I Goal Progress: Progressing Goal 4:: LEFS score 65 Goal Progress: Progressing Plan: d/c to HEP Discharge Comments: Pt to continue HEP and contact doctor if pain returns or becomes unmanageable. If there are questions or concerns regarding this patient's physical therapy, please feel free to call me at [phone]. Thank you for the referral of this patient. Sincerely, John Infante, DPT, OCS, CSCS Balance/Gait/Functional tests - Balance/Special Test Scores Lower Extremity Functional Score: 63
== END 2023-03-04 12:38 | disposition home or self-care (01) ==
LOC: PT 10:30
PROVIDERS: PCP Family Medicine; Referring Provider Student in an Organized Health Care Education/Training Program; Visit Provider Student in an Organized Health Care Education/Training Program
DX: M76.61 Achilles tendinitis, right leg (principal)
CPT/HCPCS: 97110; 97140; 97161; 97164; 97530

== ENCOUNTER → 2023-03-09 | Outpatient (CLI) | payer MEDICARE, SELFPAY ==
--- NOTE | 2023-03-09 14:27 | BI_ITS ---
MAMMOGRAPHY - BILATERAL SCREENING REASON FOR EXAM: Female, 72 years old. Routine annual screening examination. PERTINENT HISTORY: Personal history of breast cancer. Prior right lumpectomy and radiation. Mother with breast cancer. TECHNIQUE: Digital bilateral breast adi (3D mammographic acquisition) in the CC and MLO projections. 2-D mediolateral oblique (MLO) and craniocaudad (CC) views of both breasts were obtained. CAD: Full Field Digital Mammography with Computer Added Detection was performed. COMPARISON: Comparison is made with prior study dated March 06, 2022 and March 05, 2021. FINDINGS: Breast Composition: The breasts are heterogeneously dense, which may obscure small masses. There are no dominant masses or suspicious calcifications. Once again, the patient is status post lumpectomy in the deep superior lateral aspect of the right breast. Postoperative scarring and breast deformity is seen. Benign-appearing left axillary lymph nodes. No other significant abnormalities are identified. There has been no significant change since the prior study. BI/SCRN MAMM (CAD)W/ADI BILAT IMPRESSION: Stable bilateral screening mammogram. Yearly follow-up mammogram recommended. (A) ASSESSMENT CATEGORY: BIRADS Category 2: Benign. A letter regarding these results will be sent to the patient by the facility within 30 days. Approximately 10% of breast cancers are not detected by mammography. A normal mammogram should not delay biopsy of a clinically suspicious abnormality. [id number] Electronically Signed: Karson Fernández MD at 15:33 EDT ,
== END | disposition home or self-care (01) ==
LOC: OPBI 14:25
PROVIDERS: PCP Family Medicine; Referring Provider Internal Medicine Hematology & Oncology; Visit Provider Internal Medicine Hematology & Oncology
DX: Z12.31 Encounter for screening mammogram for malignant neoplasm of breast (principal)
CPT/HCPCS: 77063; 77067

== ENCOUNTER → 2023-03-16 | Outpatient (CLI) | payer MEDICARE, SELFPAY ==
[2023-03-16 12:48] LABS: Absolute Lymphocyte Count 1.81 X10^3/uL (0.83-4.51); Absolute Neutrophil Count 4.3 X10^3/uL (2.0-7.7); Basophil# 0.07 X10^3/uL; Eosinophil# 0.09 X10^3/uL; Eosinophils% 1.3 % (0-5); Hematocrit 45.8 % (37-47); Lymphocyte # 1.81 X10^3/ul (0.83-4.51); Lymphocyte % 26.7 % (19-41); Mean Corp Hgb Conc 32.8 g/dL (32-36); Mean Corpuscular Hgb 30.9 pg (27.0-32.0); Mean Corpuscular Volume 94.2 fL (81-99); Mean Platelet Vol. 10.3 fl (6.2-12.0); Monocyte# 0.54 X10^3/uL; NRBC Flagged by Analyzer 0 % (0-5); Neutrophil # 4.26 X10^3/uL (2.7-7.7); Neutrophil % 62.7 % (47-70); Platelet Count 302 K/mm3 (150-450); RBC Distribution Width CV 12.6 % (11.6-14.6); RBC Distribution Width SD 43.2 fl (35.1-43.9); Red Blood Count 4.86 M/mm3 (4.2-5.4); White Blood Count 6.8 K/mm3 (4.4-11.0)
[2023-03-16 12:55] LABS: ALB/GLOB Ratio 0.8 RATIO (0.9-2.4); AST(SGOT) 29 U/L (15-37); Alanine Aminotransfer ALT/SGPT 27 U/L (13-56); Albumin, Serum 3.5 g/dL (3.2-5.0); Alkaline Phosphatase 118 U/L (45-117); Anion Gap 5 (5-15); BUN 8 mg/dL (7-18); BUN/Creat Ratio 10.7 RATIO (10-20); Calcium,Total 8.8 mg/dL (8.5-10.1); Chloride 108 mmol/L (98-107); Cholesterol 187 mg/dL (200); Creatinine, Serum 0.74 mg/dL (0.55-1.02); EST Glomerular Filtration Rate 81 mL/min (>60); Est Glom Filt Rate - Afr Amer 98 mL/min (>60); Globulin 4.4 g/dL (2.2-4.2); Glucose 103 mg/dL (74-106); High Density Lipoprotein 65 mg/dL; Potassium 4.4 mmol/L (3.5-5.1); Protein, Total 7.9 g/dL (6.4-8.2); Sodium Level 139 mmol/L (136-145); Triglycerides 109 mg/dL; Very Low Density Lipoprotein 22 mg/dL (5-40)
== END | disposition home or self-care (01) ==
LOC: MFPLAB 11:11
PROVIDERS: Internal Medicine Hematology & Oncology; PCP Family Medicine; Visit Provider Family Medicine
DX: I10 Essential (primary) hypertension (principal)
CPT/HCPCS: 36415; 80053; 80061; 85025

== ENCOUNTER 2023-07-23 13:00 | Emergency (ER) | payer MEDICARE, SELFPAY ==
[2023-07-23] VITALS (9 sets, daily range): BP systolic 105–167; BP diastolic 58–90; PULSE 61–110; RESP 16–20; TEMP 36.4; O2SAT 95–98; BMI 37.5
--- NOTE | 2023-07-23 13:13 | EDS_ITS ---
HPI History of Present Illness Chief Complaint: Chest Pain Informant: patient Onset/Context/Timing Onset: Days (4) Context: Gradual Onset Timing: Intermittent and Lasts (Hours) Quality: Sharp Location: Lower substernal area Worsened by: Movement, cough Relieved by: Nothing Narrative Narrative: Patient presents with chest pain that has been intermittent over the last 4 days. Patient states it has been constant since this morning however. Patient describes it as sharp. Patient states it is over the lower substernal area. Patient states it is worse with coughing and with movement. Patient states that last night she felt herself wheezing. Patient admits to a cough but denies any shortness of breath. Patient denies any sputum production. Patient denies any fevers or chills. Patient denies any palpitations. Patient denies any lightheadedness or dizziness. Patient does have a history of breast cancer and hypertension., Patient states she has a family history of father at 43 of an [place]. Patient denies any other cardiac or PE risk factors. [facility] Medical History Breast cancer Carpal tunnel syndrome on both sides Heart disease Hyperlipidemia Hypertension Osteoarthritis Osteopenia Radiculopathy of leg Home Medications atorvastatin 20 mg tablet 20 mg PO QHS cholesterol 09/30/13 [History Last Taken 12/30/18] lisinopril 20 mg tablet 20 mg PO DAILY bp 09/30/13 [History Last Taken 12/31/18] amlodipine 5 mg tablet 10 mg PO DAILY bp 03/24/22 [History Last Taken Unknown] wheat dextrin 3 gram/3.5 gram oral powder packet (Benefiber Clear Sugar Free(dextrin)) 1 packet PO DAILY 03/24/22 [History Last Taken Unknown] Allergy/AdvReac Type Severity Reaction Status Date / Time fexofenadine HCl AdvReac unsure Verified 07/23/23 13:01 [From Peggy-D 12 Hour] nitrofurantoin AdvReac Rash Verified 07/23/23 13:01 [From Macrobid] nitrofurantoin AdvReac Rash Verified 07/23/23 13:01 macrocrystalline [From Macrobid] oxycodone HCl AdvReac Nausea Verified 07/23/23 13:01 [From OxyContin] pseudoephedrine HCl AdvReac unsure Verified 07/23/23 13:01 [From Peggy-D 12 Hour] Tetracyclines AdvReac causes Verified 07/23/23 13:01 yeast infection Family History Father Heart disease Mother Diabetes Breast cancer Heart disease Surgical History H/O dilation and curettage History of lumpectomy of right breast History of partial knee replacement Social History Smoking Status: Former smoker Tobacco: How many years used: 1 second hand exposure: No alcohol intake: never substance use type: does not use ROS ROS ED Constitutional Constitutional ED: Denies chills or fever(s) Eyes Eyes: Denies blurry vision or change in vision ENT ENT ED: Denies rhinorrhea or sore throat Cardiovascular Cardiovascular: Reports chest pain; Denies palpitations Respiratory/Chest Respiratory/Chest: Reports cough; Denies dyspnea Gastrointestinal Gastrointestinal: Denies abdominal pain, nausea or vomiting Genitourinary Genitourinary ED: Denies dysuria or hematuria Musculoskeletal Musculoskeletal: Denies back pain or neck pain Integumentary Denies abscess or rash Neurologic Neurologic: Denies headache(s) or weakness Allergic/Immunologic Allergic/Immunologic ED: Denies mouth swelling or urticaria EXAM Physical Exam Const Vital Signs: 07/23/23 13:02 07/23/23 13:17 07/23/23 13:18 Temperature 97.5 F L Temperature Source Temporal Pulse Rate 110 H 105 H Respiratory Rate 18 20 H Respiratory Effort Normal Non-Labored Blood Pressure 167/90 H 162/86 H Blood Pressure Mean 115 111 Pulse Ox 98 97 Oxygen Delivery Method Room Air Room Air 07/23/23 13:31 07/23/23 14:15 07/23/23 14:34 Temperature Temperature Source Pulse Rate 92 94 Respiratory Rate Respiratory Effort Blood Pressure 159/74 H 133/66 H Blood Pressure Mean Pulse Ox Oxygen Delivery Method Room Air 07/23/23 14:35 07/23/23 15:35 07/23/23 15:45 Temperature Temperature Source Pulse Rate 91 78 61 Respiratory Rate 17 16 Respiratory Effort Blood Pressure 133/66 H 135/74 H 105/58 L Blood Pressure Mean 88 73 Pulse Ox 95 98 Oxygen Delivery Method Room Air 07/23/23 16:00 Temperature Temperature Source Pulse Rate 68 Respiratory Rate Respiratory Effort Blood Pressure 138/74 H Blood Pressure Mean 95 Pulse Ox Oxygen Delivery Method Positive well nourished and well developed General Appearance ED: well developed and NAD HEENT Reports moist mucous membranes Neck supple and no JVD Chest Wall Chest Narrative: There is tenderness to palpation over the lower sternum. There is no edema or ecchymosis. There is no bony crepitance or step-off noted. Resp normal respiratory effort and clear to auscultation bilaterally Cardio regular rate and regular rhythm GI non-tender and non-distended Palpation: soft Neuro oriented x3, CN's II-XII intact bilaterally and no sensory deficits noted Sensorium / Orientation: alert Motor Exam: strength 5/5 throughout Psych mental status grossly normal MDM MDM MDM Narrative Medical decision making narrative: Differential diagnosis includes cardiac dysrhythmia, cardiac ischemia, pulmonary embolism, musculoskeletal pain, pneumothorax, pneumonia, and anxiety. CTA of the chest will be obtained to assess for pulmonary embolism. EKG will be obtain ed to assess for cardiac dysrhythmia and cardiac ischemia. CBC will be obtained to assess for leukocytosis and anemia. Basic metabolic profile will be obtained to assess for electrolyte abnormality and renal function. High-sensitivity troponin will be obtained to assess for cardiac ischemia. 2-hour repeat high- sensitivity troponin will be obtained to assess for ongoing cardiac ischemia. Lab Data Lab results narrative: CBC was reviewed and was within normal limits. Basic metabolic profile was reviewed and was essentially within normal limits. Glucose was slightly elevated at 139. Anion gap was normal. High-sensitivity troponin was reviewed and was normal at 6. 2-hour repeat high-sensitivity troponin was normal at 7. Labs: Laboratory Results - last 24 hr 07/23/23 07/23/23 13:15 15:40 WBC 7.6 RBC 4.74 Hgb 14.4 Hct 44.1 MCV 93.0 MCH 30.4 MCHC 32.7 RDW Std Deviation 42.8 RDW Coeff of [place] 12.4 Plt Count 303 MPV 10.2 Immature Gran % (Auto) 0.300 Neut % (Auto) 65.4 Lymph % (Auto) 23.9 [place] % (Auto) 7.4 Eos % (Auto) 1.8 Baso % (Auto) 1.2 H Absolute Neuts (auto) 5.0 Absolute Lymphs (auto) 1.81 Nucleated RBC % 0 Sodium 139 Potassium 3.7 Chloride 105 Carbon Dioxide 30.0 Anion Gap 4 L BUN 11 Creatinine 0.77 Estim Creat Clear Calc 41.45 Est GFR (MDRD) Af Amer 94 Est GFR (MDRD) Non-Af 78 BUN/Creatinine Ratio 14.3 Glucose 139 H Calcium 8.9 Troponin I High Sens 6 7 Radiography CTA PE Study: No Evidence of PE and No Evidence of Dissection Diagnostic Testing: Clinical Impression(s) from Imaging Studies Chest CTA 07/23/23 13:57 IMPRESSION: No demonstrated PE, or thoracic aortic aneurysm or dissection No acute pulmonary process No suspicious adenopathy Electronically Signed: Derik Chowdary MD at 14:32 EDT Reading Location ID and State: [facility] / [place] , Service support , CTA of the chest was obtained. There is no evidence of pulmonary embolism or aortic dissection. There is no acute process noted. This was interpreted by the radiologist and was also independently reviewed by myself. EKG Initial EKG: Attestation: I personally reviewed and interpreted this EKG as follows: Interpretation: Sinus Rhythm (99) and No Acute Injury Pattern Comments: EKG was obtained. On my independent interpretation, it showed a normal sinus rhythm with a rate of 99. MN interval, QRS interval, and QTc intervals were all normal. [place] was normal. There are no acute ST or T wave ch anges. Prior EKG tracings: available for review Prior: Unchanged (06/23/2022) Treatment and Re-Evaluation :: Patient was given aspirin, nitroglycerin, and morphine. Patient is feeling better but still had some pain on reevaluation. Patient has a HEART score of 3. Patient was advised that this is low risk for acute cardiac event. Patient was given a GI cocktail here. Patient was given a dose of Toradol. Patient was instructed to follow-up with her primary care physician in 5 to 7 days. Patient was instructed return if worse in any way. Patient understood and was agreeable with the plan. All questions were answered. Discharge Plan Triage Chief Complaint: Chest Pain ED Provider: John Thompson Dx/Rx/DC Orders Clinical Impression: Chest pain of uncertain etiology Instructions: ED Chest Pain, Uncertain Cause Prescriptions: No Action atorvastatin 20 MG tablet 20 mg PO QHS Patient Comments: CHOLESTEROL lisinopril 20 MG tablet 20 mg PO DAILY Patient Comments: BLOOD PRESSURE amlodipine 5 mg tablet 10 mg PO DAILY Patient Comments: BLOOD PRESSURE Benefiber Clear SF (dextrin) 3 gram/3.5 gram powder in packet 1 packet PO DAILY Primary Care Provider: Jadiel Beebe Referrals: Jadiel Beebe MD [Primary Care Provider] - 5-7 Days Disposition Disposition: Home, Self Care
[2023-07-23 13:36] LABS: Absolute Lymphocyte Count 1.81 X10^3/uL (0.83-4.51); Basophil# 0.09 X10^3/uL; Basophil% 1.2 % (0-1); Eosinophil# 0.14 X10^3/uL; Eosinophils% 1.8 % (0-5); Hematocrit 44.1 % (37-47); Hemoglobin 14.4 g/dL (12.0-15.0); Lymphocyte # 1.81 X10^3/ul (0.83-4.51); Lymphocyte % 23.9 % (19-41); Mean Corp Hgb Conc 32.7 g/dL (32-36); Mean Corpuscular Hgb 30.4 pg (27.0-32.0); Mean Platelet Vol. 10.2 fl (6.2-12.0); Monocyte# 0.56 X10^3/uL; Monocyte% 7.4 % (0-10); NRBC Flagged by Analyzer 0 % (0-5); Neutrophil # 4.95 X10^3/uL (2.7-7.7); Neutrophil % 65.4 % (47-70); Platelet Count 303 K/mm3 (150-450); RBC Distribution Width CV 12.4 % (11.6-14.6); RBC Distribution Width SD 42.8 fl (35.1-43.9); Red Blood Count 4.74 M/mm3 (4.2-5.4); White Blood Count 7.6 K/mm3 (4.4-11.0)
[2023-07-23] MEDS: Aspirin 81 MG TAB.CHEW 324 MG PO (13:36)
[2023-07-23] MEDS: Morphine 4 MG/ML Syringe IV (13:37)
[2023-07-23 13:54] LABS: Anion Gap 4 (5-15); BUN 11 mg/dL (7-18); BUN/Creat Ratio 14.3 RATIO (10-20); Calcium,Total 8.9 mg/dL (8.5-10.1); Chloride 105 mmol/L (98-107); Creatinine, Serum 0.77 mg/dL (0.55-1.02); EST Glomerular Filtration Rate 78 mL/min (>60); Est Glom Filt Rate - Afr Amer 94 mL/min (>60); Estimated Creatinine Clearance 41.45 ml/min; Glucose 139 mg/dL (74-106); Potassium 3.7 mmol/L (3.5-5.1); Sodium Level 139 mmol/L (136-145); Troponin-I HS (w/2H Reflex) 6 pg/mL (3.0-54.0)
--- NOTE | 2023-07-23 13:57 | CT_ITS ---
STUDY: CTA CHEST REASON FOR EXAM: Female, 72 years old. Substernal chest pain RADIATION DOSAGE (If Supplied By Facility): CTDIvol = ( 13.46 ) mGy, DLP = ( 488.30 ) mGycm TECHNIQUE: The examination was performed with the intravenous administration of IV 100mL Isovue-370. Post-processing of the angiographic images was performed, with multiplanar reformation and 3D reconstruction. Individualized dose optimization techniques were used for this CT. COMPARISON: 2009 FINDINGS: Normal enhancement of the main pulmonary artery and right and left pulmonary arteries. Normal enhancement of the bilateral peripheral pulmonary arteries. There is no demonstrated pulmonary embolism. Normal thoracic aorta and visualized great vessels. There is no demonstrated aortic dissection. Normal heart and pericardium. Normal mediastinum. Normal hilar regions. There is peribronchial thickening. The lungs are well expanded. Normal pulmonary parenchyma. Normal pleura. Normal chest wall structures. Degenerative bony changes noted Limited cuts through the upper abdomen show multiple simple hepatic and parapelvic renal cysts. No specific follow-up needed CT/CTA Chest W/WO Contrast IMPRESSION: No demonstrated PE, or thoracic aortic aneurysm or dissection No acute pulmonary process No suspicious adenopathy Electronically Signed: Derik Chowdary MD at 14:32 EDT ,
[2023-07-23] MEDS: Nitroglycerin SL (ED/IMG/CATH) 0.4 MG TABLET SL ×3 (14:15→15:35)
[2023-07-23 15:32] LABS: Reflex Troponin-HS? (from REC) Y
[2023-07-23 16:27] LABS: Troponin-I HS 7 pg/mL (3.0-54.0)
[2023-07-23] MEDS: Ketorolac 15 MG/ML Vial IV (16:47)
[2023-07-23] MEDS: Mag Hydrox/Al Hydrox/Simeth 30 ML UDC PO (16:49)
== END 2023-07-23 17:13 | disposition home or self-care (01) ==
PROVIDERS: Emergency Provider Emergency Medicine; PCP Family Medicine; Visit Provider Emergency Medicine
DX: R07.9 Chest pain, unspecified (principal); E78.5 Hyperlipidemia, unspecified; I10 Essential (primary) hypertension; Z79.899 Other long term (current) drug therapy; Z87.891 Personal history of nicotine dependence
CPT/HCPCS: 71275; 80048; 84484; 85025; 93005; 96374; 96375; 99284; Q9967; A4216

== ENCOUNTER → 2023-09-14 | Outpatient (CLI) | payer MEDICARE, SELFPAY ==
[2023-09-14 12:52] LABS: Anion Gap 6 (5-15); BUN 8 mg/dL (7-18); Calcium,Total 8.8 mg/dL (8.5-10.1); Chloride 107 mmol/L (98-107); Cholesterol 182 mg/dL (200); Creatinine, Serum 0.73 mg/dL (0.55-1.02); EST Glomerular Filtration Rate 83 mL/min (>60); Est Glom Filt Rate - Afr Amer 101 mL/min (>60); Glucose 107 mg/dL (74-106); High Density Lipoprotein 65 mg/dL; Potassium 3.7 mmol/L (3.5-5.1); Sodium Level 140 mmol/L (136-145); Triglycerides 130 mg/dL; Very Low Density Lipoprotein 26 mg/dL (5-40)
== END | disposition home or self-care (01) ==
LOC: MFPLAB 10:01
PROVIDERS: PCP Family Medicine; Visit Provider Family Medicine
DX: I10 Essential (primary) hypertension (principal)
CPT/HCPCS: 36415; 80048; 80061

== ENCOUNTER → 2023-12-02 | Outpatient (CLI) | payer MEDICARE, SELFPAY ==
--- NOTE | 2023-12-02 15:27 | RAD_ITS ---
INDICATION: PAIN pt twisted torso and now feels right side rib pain x 1 week EXAMINATION/TECHNIQUE: X-RAY - XR Ribs Unilateral Min 2 Views COMPARISON: Chest x-ray 06/23/2022. FINDINGS: Acute fracture of the anterolateral aspect of the eighth and ninth ribs, minimally displaced. No pneumothorax identified. RAD/Ribs Unil 2V No CXR IMPRESSION: Acute right eighth and ninth rib fractures, minimally displaced. Electronically Signed: Jordyn Colunga MD at 8:14 EST ,
== END | disposition home or self-care (01) ==
LOC: MTRAD 15:26
PROVIDERS: PCP Family Medicine; Referring Provider Family Medicine; Visit Provider Family Medicine
DX: R07.81 Pleurodynia (principal)
CPT/HCPCS: 71100

== ENCOUNTER → 2024-03-14 | Outpatient (CLI) | payer MEDICARE, SELFPAY ==
--- NOTE | 2024-03-14 09:33 | BI_ITS ---
MAMMOGRAPHY - BILATERAL SCREENING REASON FOR EXAM: Female, 73 years old. Routine annual screening examination. PERTINENT HISTORY: Personal history of breast cancer. Prior right lumpectomy and radiation treatment. Mother with breast cancer. TECHNIQUE: Digital bilateral breast adi (3D mammographic acquisition) in the CC and MLO projections. 2-D mediolateral oblique (MLO) and craniocaudad (CC) views of both breasts were obtained. CAD: Full Field Digital Mammography with Computer Added Detection was performed. COMPARISON: Comparison is made with prior study dated March 09, 2023 and March 06, 2022. FINDINGS: Breast Composition: The breasts are heterogeneously dense, which may obscure small masses. There are no dominant masses or suspicious calcifications. Once again, the patient is status post lumpectomy in the deep superior lateral aspect of the right breast. Postoperative scarring and breast deformity is seen. Stable bilateral fat containing axillary lymph nodes. No other significant abnormalities are identified. There has been no significant change since the prior study. BI/SCRN MAMM (CAD)W/ADI BILAT IMPRESSION: Stable bilateral screening mammogram. Yearly follow-up mammogram recommended. (A) ASSESSMENT CATEGORY: BIRADS Category 2: Benign. A letter regarding these results will be sent to the patient by the facility within 30 days. Approximately 10% of breast cancers are not detected by mammography. A normal mammogram should not delay biopsy of a clinically suspicious abnormality. [id number] Electronically Signed: Karson Fernández MD at 11:01 EDT ,
== END | disposition home or self-care (01) ==
LOC: OPBI 09:33
PROVIDERS: PCP Family Medicine; Referring Provider Internal Medicine Hematology & Oncology; Visit Provider Internal Medicine Hematology & Oncology
DX: Z12.31 Encounter for screening mammogram for malignant neoplasm of breast (principal)
CPT/HCPCS: 77063; 77067

== ENCOUNTER → 2024-03-16 | Outpatient (CLI) | payer MEDICARE, SELFPAY ==
[2024-03-16 13:30] LABS: Anion Gap 7 (5-15); BUN 8 mg/dL (7-18); BUN/Creat Ratio 10.5 RATIO (10-20); Calcium,Total 9.5 mg/dL (8.5-10.1); Chloride 106 mmol/L (98-107); Creatinine, Serum 0.76 mg/dL (0.55-1.02); EST Glomerular Filtration Rate 79 mL/min (>60); Est Glom Filt Rate - Afr Amer 95 mL/min (>60); Glucose 110 mg/dL (74-106); Potassium 4.2 mmol/L (3.5-5.1); Sodium Level 141 mmol/L (136-145)
== END | disposition home or self-care (01) ==
LOC: MFPLAB 10:11
PROVIDERS: PCP Family Medicine; Visit Provider Family Medicine
DX: I10 Essential (primary) hypertension (principal)
CPT/HCPCS: 36415; 80048

== ENCOUNTER 2024-04-14 14:10 | Outpatient (CLI) | payer MEDICARE, SELFPAY ==
--- NOTE | 2024-04-14 14:22 | BD_ITS ---
STUDY: DUAL ENERGY X-RAY ABSORPTIOMETRY / DXA REASON FOR EXAM: Female, 73 years old. Z78.0 TECHNIQUE: Bone Mineral Density (BMD) measurements of lumbar spine and bilateral hips were obtained. COMPARISON: Comparison is made with prior study dated March 14, 2021. FINDINGS: Lumbar Spine (L1-L4): g/cm2 (0.880) / T-score (-1.5) / Z-score (0.9) Findings are suggestive of osteopenia with a low fracture risk. Left Femur Total: g/cm2 (0.805) / T-score (-1.1) / Z-score (0.6) Left Femoral Neck: g/cm2 (0.589) / T-score (-2.3) / Z-score (-0.3) Right Femur Total: g/cm2 (0.791) / T-score (-1.2) / Z-score (0.5) Right Femoral Neck: g/cm2 (0.582) / T-score (-2.4) / Z-score (-0.4) The T-Scores on the most recent prior examination were: Lumbar Spine (L1-L4): There has been worsening of bone density since the previous examination. Left Femur Total: which represents an improvement of 4%. Right Femur Total: which represents an improvement of 3.8%. BD/Dexa Bone Density Study IMPRESSION: The patient is considered osteopenic as outlined below according to World Pete Organization (WHO) criteria with a high fracture risk. There has been improvement of bone density since the previous examination. Reference Information: The T-score is the number of standard deviations above or below the standard which is normal for young adults at their peak bone mineral density. The World Health Organization (WHO) interprets the T-scores as follows: Above -1 Normal bone density Between -1 and -2.5 Osteopenia Equal to / or below -2.5 Osteoporosis As a practical clinical guideline, osteopenia may be graded as follows: Mild -1 through -1.5 Moderate -1.6 through -2.0 Severe -2.1 through -2.4 The Z-score is the number of standard deviations above or below age-matched controls. A Z-score of less than -1.5 would be considered abnormal. References: 1. NIH Osteoporosis and Related Bone Diseases www osteo.org 2. International Society for Clinical Densitometry www iscd.org 3. National Osteoporosis Foundation www nof.org Electronically Signed: Karson Fernández MD at 11:01 EDT ,
== END 2024-04-14 23:59 | disposition home or self-care (01) ==
LOC: OPBD 14:11
PROVIDERS: PCP Family Medicine; Referring Provider Family Medicine; Visit Provider Family Medicine
DX: Z00.00 Encounter for general adult medical examination without abnormal findings (principal); Z78.0 Asymptomatic menopausal state
CPT/HCPCS: 77080

== ENCOUNTER → 2024-09-12 | Outpatient (CLI) | payer MEDICARE, SELFPAY ==
[2024-09-12 13:08] LABS: ALB/GLOB Ratio 0.9 RATIO (0.9-2.4); AST(SGOT) 18 U/L (15-37); Alanine Aminotransfer ALT/SGPT 29 U/L (13-56); Albumin, Serum 3.6 g/dL (3.2-5.0); Alkaline Phosphatase 118 U/L (45-117); Anion Gap 5 (5-15); BUN 9 mg/dL (7-18); BUN/Creat Ratio 14.2 RATIO (10-20); Chloride 106 mmol/L (98-107); Cholesterol 185 mg/dL (200); Creatinine, Serum 0.64 mg/dL (0.55-1.02); EST Glomerular Filtration Rate 97 mL/min (>60); Est Glom Filt Rate - Afr Amer 117 mL/min (>60); Globulin 3.9 g/dL (2.2-4.2); Glucose 111 mg/dL (74-106); High Density Lipoprotein 66 mg/dL; Potassium 3.8 mmol/L (3.5-5.1); Protein, Total 7.5 g/dL (6.4-8.2); Sodium Level 139 mmol/L (136-145); Triglycerides 112 mg/dL; Very Low Density Lipoprotein 22 mg/dL (5-40)
== END | disposition home or self-care (01) ==
LOC: MFPLAB 10:54
PROVIDERS: PCP Family Medicine; Referring Provider Family Medicine; Visit Provider Family Medicine
DX: I10 Essential (primary) hypertension (principal)
CPT/HCPCS: 36415; 80053; 80061

== ENCOUNTER 2024-12-05 14:33 | Emergency (ER) | payer MEDICARE, SELFPAY ==
[2024-12-05 14:35] VITALS: BP 138/90; PULSE 95; RESP 20; TEMP 36.6; O2SAT 99; BMI 38.1
[2024-12-05 15:15] LABS: Absolute Lymphocyte Count 1.86 X10^3/uL (0.83-4.51); Absolute Neutrophil Count 8.3 X10^3/uL (2.0-7.7); Basophil# 0.09 X10^3/uL; Basophil% 0.8 % (0-1); Eosinophil# 0.15 X10^3/uL; Eosinophils% 1.3 % (0-5); Hemoglobin 14.7 g/dL (12.0-15.0); Lymphocyte # 1.86 X10^3/ul (0.83-4.51); Lymphocyte % 16.3 % (19-41); Mean Corp Hgb Conc 33.4 g/dL (32-36); Mean Corpuscular Hgb 30.5 pg (27.0-32.0); Mean Corpuscular Volume 91.3 fL (81-99); Monocyte# 0.99 X10^3/uL; Monocyte% 8.7 % (0-10); NRBC Flagged by Analyzer 0 % (0-5); Neutrophil # 8.26 X10^3/uL (2.7-7.7); Neutrophil % 72.6 % (47-70); Platelet Count 313 K/mm3 (150-450); RBC Distribution Width CV 12.6 % (11.6-14.6); RBC Distribution Width SD 41.3 fl (35.1-43.9); Red Blood Count 4.82 M/mm3 (4.2-5.4); White Blood Count 11.4 K/mm3 (4.4-11.0)
--- NOTE | 2024-12-05 15:38 | US_ITS ---
EXAM: GALLBLADDER CLINICAL HISTORY: 74-year-old female, right upper quadrant abdominal pain. COMPARISON: CT abdomen pelvis 01/04/2019. TECHNIQUE: Ultrasound Abdomen utilizing Grayscale and color Doppler images. FINDINGS: The liver is normal in size measuring 16.0 cm. Moderate diffuse hyperechoic echogenicity, compatible with fatty liver. Several scattered hepatic cysts throughout the liver parenchyma. The portal vein is patent with normal directional flow. There is no gallbladder wall thickening with cross- sectional measurement of 2 mm. No calculi visualized in the gallbladder lumen. No pericholecystic fluid. The technologist reports a negative sonographic Man sign. The common bile duct is not dilated, measuring 4 mm in diameter. Limited views of the pancreas are sonographically unremarkable. The right kidney measures 11.0 x 5.5 x 6.1 cm. No hydronephrosis or perirenal fluid collection identified. There is no ascites. The visualized proximal aorta and IVC are unremarkable. US/Gallbladder IMPRESSION: Hepatic steatosis. Otherwise unremarkable abdominal ultrasound. Reading Location: [id number]
--- NOTE | 2024-12-05 15:39 | ED.VIS.GI ---
HPI HPI - GI History of Present Illness Chief Complaint: Abd Pain Narrative Narrative: 34-year-old female past medical history of remote laparoscopic surgery for endometriosis presents with right upper quadrant pain and nausea that she has had since about 5:00 this morning, approximately 10 hours ago. She states yesterday everything was fine. Of note, she did have tach like this earlier in the month of October, approximately 1 month ago, but that resolved. This is lasting longer. She states that she awoke before her alarm at 6 AM because she was having right upper quadrant abdominal pain. Associated with some nausea but no vomiting. She saw her primary care provider today who sent her in for evaluation of the right upper quadrant pain. She denies prior cholecystectomy. No exacerbating or alleviating factors but pain can be worsened with movement. She had a normal bowel movement today as well. [facility] Medical History Rib fractures Carpal tunnel syndrome on both sides Radiculopathy of leg Osteopenia Osteoarthritis Hypertension Hyperlipidemia Heart disease Breast cancer Home Medications ?Medication ?Instructions ?Recorded ?Last Taken ?Type atorvastatin 20 mg tablet 20 mg PO QHS cholesterol 09/30/13 12/30/18 History lisinopril 20 mg tablet 20 mg PO DAILY bp 09/30/13 12/31/18 History amlodipine 5 mg tablet 10 mg PO DAILY bp 03/24/22 Unknown History wheat dextrin 3 gram/3.5 gram oral 1 packet PO DAILY 03/24/22 Unknown History powder packet (Benefiber Clear Sugar Free(dextrin)) cephalexin 500 mg capsule 500 mg PO BID #14 caps 12/05/24 Unknown Rx dicyclomine 20 mg tablet 20 mg PO TID #15 tabs 12/05/24 Unknown Rx Allergy/AdvReac Type Severity Reaction Status Date / Time fexofenadine HCl (From AdvReac unsure Verified 12/05/24 14:35 Peggy-D 12 Hour) nitrofurantoin (From AdvReac Rash Verified 12/05/24 14:35 Macrobid) nitrofurantoin AdvReac Rash Verified 12/05/24 14:35 macrocrystalline (From Macrobid) oxycodone HCl (From AdvReac Nausea Verified 12/05/24 14:35 OxyContin) pseudoephedrine HCl (From AdvReac unsure Verified 12/05/24 14:35 Peggy-D 12 Hour) Tetracyclines AdvReac causes Verified 12/05/24 14:35 yeast infection Family History Father Heart disease Mother Diabetes Breast cancer Heart disease Surgical History H/O dilation and curettage History of partial knee replacement History of lumpectomy of right breast Social History Smoking Status: Former smoker Tobacco: How many years used: 1 second hand exposure: No alcohol intake: never substance use type: does not use ROS ROS ED ROS Narrative Constitutional: No fever, no chills. Cardiovascular: No chest pain. No palpitations. No pedal edema. Respiratory: No cough, no shortness of breath. Abdominal: Right upper quadrant to right flank abdominal pain. Positive nausea. No vomiting. No diarrhea. Last normal bowel movement today. Genitourinary: No dysuria. No hematuria. Neurologic: Developing headache. No dizziness. No lightheadedness. Skin: No rash. No change in color. EXAM Physical Exam Narrative Exam Narrative: Afebrile. Vital signs noted. Nontoxic-appearing. Mild discomfort on examination. Cardiovascular examination reveals a regular rate and rhythm. Mild tachypnea although lungs are clear to auscultation bilaterally. Abdomen is soft with positive tenderness in the right upper quadrant. Questionable Man sign. No pain over McBurney's point. No other areas of guarding or rebound in the abdomen. Positive bowel sounds. Neurological examination is nonfocal and nonlateralizing. Const Vital Signs: 12/05/24 14:35 12/05/24 16:33 12/05/24 17:58 Temperature 98 F Temperature Source Oral Pulse Rate 95 92 78 Respiratory Rate 20 H 17 18 Blood Pressure 138/90 H 162/59 H 136/56 H Blood Pressure Mean 106 93 82 Pulse Ox 99 92 93 Oxygen Delivery Method Room Air Room Air Room Air MDM MDM MDM Narrative Medical decision making narrative: Differential diagnosis includes but not limited to acute cholecystitis versus choledocholithiasis versus pancreatitis versus biliary colic versus diverticulitis versus retrocecal appendicitis. Initial protocol laboratories were entered. I reviewed her CBC and she has slight elevation of her white count 11.4. She was administered morphine and ondansetron for analgesia. I do feel that ultrasound is indicated given her right upper quadrant pain. If this yields a negative result, I would expand further into imaging of the abdomen with a CT of the abdomen and pelvis. I reviewed her laboratory work and she has slight elevation of her white count of 11.4 which I think is nonspecific normal hemoglobin of 14.7, platelet count normal at 313. CMP is grossly unremarkable except for glucose of 101 with a normal anion gap of 12. LFTs show normal AST of 27 and ALT of 13 with slightly elevated alk phos of 134. Lipase normal at 23. Given the CMP results and only slightly elevated white count, I doubt acute cholecystitis. I did order a CT of the abdomen and pelvis as well. In review of her urinalysis, she does have greater than 100 white cells. She will be treated for cystitis but I do not think this is the cause of her right upper quadrant pain. She was given her first dose of cephalexin and prescription written for the next 7 days. I reviewed the radiology report of the ultrasound of the gallbladder which shows no evidence of an acute cholecystitis, no gallstones or sludge. Additionally I reviewed the radiology report of the CT of the abdomen and pelvis and there is no acute process. She does have trace pleural effusion with surgical clips with history of radiation. I do not think that she has a pneumonia which requires antibiotics. Upon repeat examination, she states she has a dry mouth, most likely from the morphine. She will be given her first dose of the cephalexin along with oral fluids. At this point in time, I feel she can be discharged to follow-up with her primary care provider. I do not feel that she requires outpatient narcotic pain medication but was given a prescription for Bentyl as well. Return instructions to the emergency department were reviewed. Disposition is discharged home in stable condition. History & Record Review Discussion w/independent historian: Patient Lab Data Attestation: I reviewed the patient's lab results. Labs: Laboratory Results - last 24 hr 12/05/24 12/05/24 14:58 15:48 WBC 11.4 H RBC 4.82 Hgb 14.7 Hct 44.0 MCV 91.3 MCH 30.5 MCHC 33.4 RDW Std Deviation 41.3 RDW Coeff of [place] 12.6 Plt Count 313 MPV 10.0 Immature Gran % (Auto) 0.300 Neut % (Auto) 72.6 H Lymph % (Auto) 16.3 L [place] % (Auto) 8.7 Eos % (Auto) 1.3 Baso % (Auto) 0.8 Absolute Neuts (auto) 8.3 H Absolute Lymphs (auto) 1.86 Nucleated RBC % 0 Sodium 139 Potassium 3.9 Chloride 102 Carbon Dioxide 26.1 Anion Gap 12 BUN 10 Creatinine 0.69 L Estim Creat Clear Calc 67.66 Est GFR (MDRD) Non-Af 90 BUN/Creatinine Ratio 14.5 Glucose 101 H Calcium 9.3 Total Bilirubin 0.60 AST 27 ALT 13 Alkaline Phosphatase 134 H Total Protein 7.8 Albumin 4.2 Globulin 3.6 Albumin/Globulin Ratio 1.2 Lipase 23 Urine Color Yellow Urine Clarity Sl. Cloudy Urine pH 5.0 Ur Specific [place] 1.015 Urine Protein 30 H Urine Glucose (UA) Normal Urine Ketones Negative Urine Occult Blood 25 H Urine Nitrite Negative Urine Bilirubin Negative Urine Urobilinogen Normal Ur Leukocyte Esterase 500 H Urine RBC 10-25 SEEN Urine WBC >100 SEEN Ur Squamous Epith Cells 0-5 SEEN Ur Transition Epith Cell 0-5 SEEN Urine Bacteria 1+ Urine Mucus RARE Radiography Diagnostic Testing: Clinical Impression(s) from Imaging Studies Gallbladder Ultrasound 12/05/24 15:38 IMPRESSION: Hepatic steatosis. Otherwise unremarkable abdominal ultrasound. Reading Location: [facility] Abdomen/Pelvis CT 12/05/24 16:40 IMPRESSION: 1. No acute abdominopelvic finding. 2. Right breast surgical clips and development of trace right pleural effusion. Findings are nonspecific and can represent prior right chest wall radiation, infection/inflammatory etiology, or pleural metastasis in the correct clinical setting. Follow-up with diagnostic mammogram if not recently performed is recommended for further evaluation. One or more dose reduction techniques were used (e.g., Automated exposure control, adjustment of the mA and/or kV according to patient size, use of iterative reconstruction technique). Reading Location: [facility] Discharge Plan Triage Chief Complaint: Abd Pain ED Provider: Rush Velázquez Dx/Rx/DC Orders Clinical Impression: Abdominal pain, History of breast cancer, UTI (urinary tract infection) Instructions: ED Abdominal Pain Unkn Cause Fem, ED Pain, Acute, Uncertain Cause, ED Cystitis Female Adult Prescriptions: New dicyclomine 20 mg tablet 20 mg PO TID Qty: 15 0RF cephalexin 500 mg capsule 500 mg PO BID Qty: 14 0RF No Action atorvastatin 20 MG tablet 20 mg PO QHS Patient Comments: CHOLESTEROL lisinopril 20 MG tablet 20 mg PO DAILY Patient Comments: BLOOD PRESSURE amlodipine 5 mg tablet 10 mg PO DAILY Patient Comments: BLOOD PRESSURE Benefiber Clear SF (dextrin) 3 gram/3.5 gram powder in packet 1 packet PO DAILY Primary Care Provider: Jadiel Beebe Referrals: Jadiel Beebe MD [Primary Care Provider] - 1-2 Days if not improving Activity Restrictions/Additional Instructions: Follow-up with your primary care provider in the next 1 to 2 days. You had a negative CT and negative ultrasound of your gallbladder today. Take medication as directed for pain. Return with fever, new or worsening symptoms. Additionally, you have been diagnosed with a UTI. Take antibiotics as directed. Print Language: [place] Disposition Disposition: Home, Self Care
[2024-12-05 15:41] LABS: Lipase 23 U/L (13-75)
[2024-12-05] MEDS: Morphine 4 MG/ML Syringe IV (15:45)
[2024-12-05] MEDS: Ondansetron 4 MG/2 ML Vial IV (15:45)
[2024-12-05 15:55] LABS: ALB/GLOB Ratio 1.2 RATIO (0.9-2.4); AST(SGOT) 27 U/L (<=31); Alanine Aminotransfer ALT/SGPT 13 U/L (<=34); Albumin, Serum 4.2 g/dL (3.4-4.8); Alkaline Phosphatase 134 U/L (35-104); Anion Gap 12 (5-15); BUN 10 mg/dL (4-19); BUN/Creat Ratio 14.5 RATIO (10-20); Calcium,Total 9.3 mg/dL (7.6-11.0); Carbon Dioxide 26.1 mmol/L (21.0-32.0); Chloride 102 mmol/L (98-108); Creatinine, Serum 0.69 mg/dL (0.70-1.20); EST Glomerular Filtration Rate 90 (>60); Estimated Creatinine Clearance 67.66 ml/min (50-250); Globulin 3.6 g/dL (2.2-4.2); Glucose 101 mg/dL (70-99); Potassium 3.9 mmol/L (3.3-5.1); Protein, Total 7.8 g/dL (5.9-8.4); Sodium Level 139 mmol/L (133-145)
[2024-12-05 16:13] LABS: Color, Urine Yellow (Yellow); Glucose, Dipstick Normal (Normal); Ketone-Dipstick Negative (Negative); Leukocyte Esterase-Dipstick 500 /ul (Negative); Nitrite-Dipstick Negative (Negative); Occult Blood-Urine 25 /ul (Negative); Protein-Dipstick 30 mg/dl (Negative); Specific Gravity, Urine 1.015 (1.002-1.030); Urine Bilirubin Dipstick Negative (Negative); Urine Clarity Sl. Cloudy (Clear); Urine Urobilinogen Normal (Normal)
[2024-12-05 16:33] VITALS: BP 162/59; PULSE 92; RESP 17; O2SAT 92
--- NOTE | 2024-12-05 16:40 | CT_ITS ---
PROCEDURE: ABDOMEN/PELVIS W IV CONT ONLY REASON FOR EXAM: 74-year-old female, right-sided abdominal pain. TECHNIQUE: Abdomen and pelvis CT with intravenous contrast. No oral contrast. IV CONTRAST: [id number] COMPARISON: Same-day right upper quadrant ultrasound, CT abdomen pelvis 01/04/2019. FINDINGS: Lung bases: Trace right pleural effusion. The heart is normal in size. Liver: The liver is normal in size with stable hepatic cysts. The major portal veins are patent. No biliary ductal dilation. Gallbladder: No radiopaque stones within the gallbladder. Spleen: Unremarkable. Pancreas: Unremarkable. Adrenals: Unremarkable. Kidneys: Stable bilateral peripelvic cysts and additional hypodensities. No hydronephrosis or nephrolithiasis. Bladder: Minimally distended. Reproductive Organs: Unremarkable. Bowel: The bowel loops are normal in caliber. No ascites or pneumoperitoneum. Normal appendix. Lymph nodes: No suspicious lymph node enlargement. Vasculature: Mild aortoiliac calcific plaque. Bones/soft tissues: Surgical clips within the right lower outer breast. Thoracolumbar spondylosis. Chronic fracture deformity of the lateral right 9th rib. CT/Abdomen/Pelvis W IV Cont ONLY IMPRESSION: 1. No acute abdominopelvic finding. 2. Right breast surgical clips and development of trace right pleural effusion. Findings are nonspecific and can represent prior right chest wall radiation, infection/inflammatory etiology, or pleural metasta sis in the correct clinical setting. Follow-up with diagnostic mammogram if not recently performed is recommended for further evaluation. One or more dose reduction techniques were used (e.g., Automated exposure contr ol, adjustment of the mA and/or kV according to patient size, use of iterative reconstruction technique). Reading Location: [facility]
[2024-12-05 17:50] LABS: Bacteria 1+ /hpf (None Seen); Mucous, Urine RARE /hpf (<or=2+); Red Blood Cells-Urine 10-25 SEEN /hpf (0-5); Squamous Epithelial Cells - UA 0-5 SEEN /hpf (5-10); Transitional Epithelial - Ur 0-5 SEEN /hpf (0-5); White Blood Cells >100 SEEN /hpf (0-5)
[2024-12-05 17:58] VITALS: BP 136/56; PULSE 78; RESP 18; O2SAT 93
[2024-12-05] MEDS: Cephalexin 250 MG Capsule 500 MG PO (18:31)
[2024-12-05 18:37] VITALS: BP 132/78; PULSE 77; RESP 18; TEMP 36.8; O2SAT 98
== END 2024-12-05 18:58 | disposition home or self-care (01) ==
PROVIDERS: Emergency Provider Emergency Medicine; PCP Family Medicine; Referring Provider Emergency Medicine; Visit Provider Emergency Medicine
DX: R10.11 Right upper quadrant pain (principal); N39.0 Urinary tract infection, site not specified; Z87.891 Personal history of nicotine dependence
CPT/HCPCS: 74177; 76705; 80053; 81001; 83690; 85025; 96374; 96375; 96376; 99283; Q9967; A4216; J2405

== ENCOUNTER → 2025-03-13 | Outpatient (CLI) | payer MEDICARE, SELFPAY ==
[2025-03-13 12:56] LABS: Microalbumin,Random Urine < 12.0 mg/L (NO RANGE EST.); Microalbumin:Creatinine Ratio UNABLE TO CALCULATE mg/g CRE
[2025-03-14 15:55] LABS: ALB/GLOB Ratio 1.3 RATIO (0.9-2.4); AST(SGOT) 24 U/L (<=31); Alanine Aminotransfer ALT/SGPT 18 U/L (<=34); Albumin, Serum 4.2 g/dL (3.4-4.8); Alkaline Phosphatase 124 U/L (35-104); Anion Gap 10 (5-15); BUN 9 mg/dL (4-19); BUN/Creat Ratio 12.4 RATIO (10-20); Calcium,Total 9.2 mg/dL (7.6-11.0); Carbon Dioxide 25.5 mmol/L (21.0-32.0); Chloride 104 mmol/L (98-108); Cholesterol 170 mg/dL (<=200); Creatinine, Serum 0.71 mg/dL (0.70-1.20); EST Glomerular Filtration Rate 89 (>60); Globulin 3.2 g/dL (2.2-4.2); Glucose 104 mg/dL (70-99); High Density Lipoprotein 55 mg/dL; Low Density Lipoprotein Calc. 91 mg/dL; Potassium 3.9 mmol/L (3.3-5.1); Protein, Total 7.4 g/dL (5.9-8.4); Sodium Level 140 mmol/L (133-145); Total Bilirubin 0.53 mg/dL (0.00-1.30); Triglycerides 118 mg/dL; Very Low Density Lipoprotein 24 mg/dL (5-40); cholesterol:hdl ratio screen 3.09
== END | disposition home or self-care (01) ==
LOC: MFPLAB 10:17
PROVIDERS: PCP Family Medicine; Referring Provider Family Medicine; Visit Provider Family Medicine
DX: I10 Essential (primary) hypertension (principal)
CPT/HCPCS: 36415; 80053; 80061; 82043; 82570

== ENCOUNTER → 2025-03-15 | Outpatient (CLI) | payer MEDICARE, SELFPAY ==
--- NOTE | 2025-03-15 10:00 | BI_ITS ---
EXAM: SCRN MAMM (CAD)W/ADI BILAT DATE: 03/15/2025 CLINICAL HISTORY: F, Age 74 y/o , SCREENING BREAST CANCER RISK ASSESSMENT: Not calculated this time. TECHNIQUE: Bilateral screening digital breast tomosynthesis with 2D and 3D images. Computer aided detection. COMPARISON: Prior exam(s) dated 03/14/2024, 03/09/2023, 03/06/2022. FINDINGS: TISSUE DENSITY: The breast tissue is composed of scattered areas of fibroglandular density. Bilateral Breast Mammographic Findings: No significant masses, calcifications or other abnormalities are identified. BI/SCRN MAMM (CAD)W/ADI BILAT IMPRESSION: There is no mammographic evidence of malignancy. OVERALL FINAL ASSESSMENT BI-RADS 1: NEGATIVE. RECOMMEND ANNUAL MAMMOGRAPHIC SCREENING. RECOMMENDATION: Routine annual follow-up in 1 Year A letter with findings and recommendations will be mailed to the patient. Reading Location: [id number]
== END | disposition home or self-care (01) ==
PROVIDERS: PCP Family Medicine; Referring Provider Internal Medicine Hematology & Oncology; Visit Provider Internal Medicine Hematology & Oncology
DX: Z12.31 Encounter for screening mammogram for malignant neoplasm of breast (principal)
CPT/HCPCS: 77063; 77067

== ENCOUNTER → 2025-09-11 | Outpatient (CLI) | payer MEDICARE, SELFPAY ==
[2025-09-11 12:30] LABS: AST(SGOT) 24 U/L (<=31); Alanine Aminotransfer ALT/SGPT 19 U/L (<=34); Albumin, Serum 4.2 g/dL (3.4-4.8); Alkaline Phosphatase 110 U/L (35-104); Anion Gap 9 (5-15); BUN 10 mg/dL (4-19); BUN/Creat Ratio 14.2 RATIO (10-20); Calcium,Total 9.3 mg/dL (7.6-11.0); Carbon Dioxide 27.2 mmol/L (21.0-32.0); Chloride 104 mmol/L (98-108); Cholesterol 160 mg/dL (<=200); Globulin 3.4 g/dL (2.2-4.2); Glucose 107 mg/dL (70-99); Low Density Lipoprotein Calc. 88 mg/dL; Potassium 3.7 mmol/L (3.3-5.1); Triglycerides 122 mg/dL; Very Low Density Lipoprotein 24 mg/dL (5-40); cholesterol:hdl ratio screen 3.19
== END | disposition home or self-care (01) ==
LOC: MTLAB 10:04
PROVIDERS: PCP Family Medicine; Referring Provider Family Medicine; Visit Provider Family Medicine
DX: I10 Essential (primary) hypertension (principal)
CPT/HCPCS: 36415; 80053; 80061